=== PATIENT | male | born 1965 | race Caucasian/White ===

== ENCOUNTER → 2017-04-23 | Outpatient (CLI) | payer BC ==
[~2017-04-23] MED LIST: ASCO500T20 PO; CEFE2FRO IV; CIPR500T4 PO; CIPR500T78 PO; GENT100P4 IV; GENTAMICIN IV; IBUP200C PO; METF500T4 PO; MTF500T PO; MULT-1018 PO; MULT-159 PO; MULT-608 PO; OMEG1CAP51 PO
== END ==
LOC: WOUNDCARE 09:13
PROVIDERS: ATTEND Internal Medicine
DX: L97.512 Non-pressure chronic ulcer of other part of right foot with fat layer exposed (principal); L97.522 Non-pressure chronic ulcer of other part of left foot with fat layer exposed; E11.621 Type 2 diabetes mellitus with foot ulcer; E11.42 Type 2 diabetes mellitus with diabetic polyneuropathy
CPT/HCPCS: 11042; 87070; 87075; 87101; 87205

== ENCOUNTER → 2017-04-23 | Outpatient (CLI) | payer BC ==
[2017-04-23 11:35] LABS: BASOPHILS % (AUTO) 0 % (0-10); EOSINOPHILS # (AUTO) 0.4 10^3/uL (0.0-0.3); EOSINOPHILS % (AUTO) 4 % (0-10); LYMPHOCYTES # (AUTO) 2.4 X 10^3 (1.0-4.0); LYMPHOCYTES % (AUTO) 25 % (12-44); MEAN CORPUSCULAR HEMOGLOBIN 27 PG (25-34); MEAN CORPUSCULAR HGB CONC 33 G/DL (32-36); MEAN CORPUSCULAR VOLUME 84 FL (80-99); MEAN PLATELET VOLUME 9.7 FL (7.4-10.4); MONOCYTES # (AUTO) 0.8 X 10^3 (0.0-1.0); MONOCYTES % (AUTO) 8 % (0-12); NEUTROPHILS # (AUTO) 6.1 X 10^3 (1.8-7.8); NEUTROPHILS % (AUTO) 63 % (42-75); PLATELET COUNT 257 10^3/uL (130-400); RED BLOOD COUNT 5.29 10^6/uL (4.35-5.85); RED CELL DISTRIBUTION WIDTH 14.9 % (10.0-14.5); WHITE BLOOD COUNT 9.7 10^3/uL (4.3-11.0)
[2017-04-23 11:57] LABS: ALANINE AMINOTRANSFERASE 63 U/L (0-55); ALBUMIN 4.1 GM/DL (3.2-4.5); ANION GAP 7 MMOL/L (5-14); ASPARTATE AMINO TRANSFERASE 33 U/L (5-34); BILIRUBIN,TOTAL 0.5 MG/DL (0.1-1.0); BLOOD UREA NITROGEN 18 MG/DL (7-18); BUN/CREATININE RATIO 23; CALCIUM 9.2 MG/DL (8.5-10.1); CARBON DIOXIDE 26 MMOL/L (21-32); CHLORIDE 104 MMOL/L (98-107); CREATININE SERUM 0.77 MG/DL (0.60-1.30); GFR ESTIMATED > 60; GLUCOSE 95 MG/DL (70-105); POTASSIUM 4.5 MMOL/L (3.6-5.0); SODIUM 137 MMOL/L (135-145); TOTAL PROTEIN 7.7 GM/DL (6.4-8.2)
[2017-04-23 12:16] LABS: ERYTHROCYTE SEDIMENTATION RATE 9 MM/HR (0-30)
--- NOTE | 2017-04-23 21:06 | Diagnostic Imaging Report ---
INDICATION: Sore/wound on lateral side of foot for several days. Diabetic ulcer. TECHNIQUE: Three views of the left foot. CORRELATION STUDY: 01/14/2016. FINDINGS: BB marker is placed at the area of ulceration. There is an irregular appearance about the soft tissues consistent with the ulceration with small gas collection suggested. There is again noted deformity and angulation at the location of the fifth MTP joint. Erosion and destructive changes of the fifth metatarsal is generally stable. Deformity at the base of the proximal phalanx also appears unchanged. No new periosteal reaction is suggested. There is also hammertoe deformities of the fourth and to a lesser degree third and second digits, appearing unchanged. Large calcaneal spur is noted. IMPRESSION: Destructive changes and abnormal alignment at the fifth toe overall appears to be generally stable. Definitive aggressive periosteal type reaction or nicol erosive change does not appear to have taken place since prior imaging. Soft tissue edema and small gas collection are suggested, compatible with ulceration. Dictated by: Dictated on workstation # [id number]
== END ==
LOC: LAB 11:19
PROVIDERS: ATTEND Internal Medicine
DX: L97.512 Non-pressure chronic ulcer of other part of right foot with fat layer exposed (principal); L97.522 Non-pressure chronic ulcer of other part of left foot with fat layer exposed; E11.621 Type 2 diabetes mellitus with foot ulcer; E11.42 Type 2 diabetes mellitus with diabetic polyneuropathy
CPT/HCPCS: 36415; 73630; 80053; 83036; 85025; 85652

== ENCOUNTER → 2017-04-30 | Outpatient (CLI) | payer BC | LOC: WOUNDCARE 08:27 | PROVIDERS: ATTEND Internal Medicine | DX: E11.621 Type 2 diabetes mellitus with foot ulcer (principal); L97.512 Non-pressure chronic ulcer of other part of right foot with fat layer exposed; L97.522 Non-pressure chronic ulcer of other part of left foot with fat layer exposed; E11.42 Type 2 diabetes mellitus with diabetic polyneuropathy | CPT/HCPCS: 11042 ==

== ENCOUNTER → 2017-05-07 | Outpatient (CLI) | payer BC | LOC: WOUNDCARE 09:00 | PROVIDERS: ATTEND Nurse Practitioner | DX: E11.621 Type 2 diabetes mellitus with foot ulcer (principal); L97.522 Non-pressure chronic ulcer of other part of left foot with fat layer exposed; L97.511 Non-pressure chronic ulcer of other part of right foot limited to breakdown of skin; E11.42 Type 2 diabetes mellitus with diabetic polyneuropathy | CPT/HCPCS: 11042; 97597 ==

== ENCOUNTER → 2017-05-14 | Outpatient (CLI) | payer BC | LOC: WOUNDCARE 09:00 | PROVIDERS: ATTEND Internal Medicine | DX: L97.522 Non-pressure chronic ulcer of other part of left foot with fat layer exposed (principal); L97.511 Non-pressure chronic ulcer of other part of right foot limited to breakdown of skin; E11.621 Type 2 diabetes mellitus with foot ulcer; E11.42 Type 2 diabetes mellitus with diabetic polyneuropathy | CPT/HCPCS: 11042; 97597 ==

== ENCOUNTER → 2017-05-21 | Outpatient (CLI) | payer BC | LOC: WOUNDCARE 08:57 | PROVIDERS: ATTEND Internal Medicine | DX: E11.621 Type 2 diabetes mellitus with foot ulcer (principal); E11.42 Type 2 diabetes mellitus with diabetic polyneuropathy; L97.522 Non-pressure chronic ulcer of other part of left foot with fat layer exposed; L97.511 Non-pressure chronic ulcer of other part of right foot limited to breakdown of skin | CPT/HCPCS: 11042 ==

== ENCOUNTER → 2017-06-04 | Outpatient (CLI) | payer BC | LOC: WOUNDCARE 08:27 | PROVIDERS: ATTEND Internal Medicine | DX: E11.621 Type 2 diabetes mellitus with foot ulcer (principal); L97.511 Non-pressure chronic ulcer of other part of right foot limited to breakdown of skin; L97.522 Non-pressure chronic ulcer of other part of left foot with fat layer exposed; E11.42 Type 2 diabetes mellitus with diabetic polyneuropathy | CPT/HCPCS: 11042 ==

== ENCOUNTER → 2017-06-11 | Outpatient (CLI) | payer BC | LOC: WOUNDCARE 08:31 | PROVIDERS: ATTEND Surgery | DX: E11.621 Type 2 diabetes mellitus with foot ulcer (principal); E11.42 Type 2 diabetes mellitus with diabetic polyneuropathy; L97.522 Non-pressure chronic ulcer of other part of left foot with fat layer exposed; L97.511 Non-pressure chronic ulcer of other part of right foot limited to breakdown of skin | CPT/HCPCS: 11042 ==

== ENCOUNTER → 2017-06-18 | Outpatient (CLI) | payer BC | LOC: WOUNDCARE 08:16 | PROVIDERS: ATTEND Internal Medicine | DX: E11.621 Type 2 diabetes mellitus with foot ulcer (principal); E11.42 Type 2 diabetes mellitus with diabetic polyneuropathy; L97.522 Non-pressure chronic ulcer of other part of left foot with fat layer exposed; L97.511 Non-pressure chronic ulcer of other part of right foot limited to breakdown of skin | CPT/HCPCS: 11042 ==

== ENCOUNTER → 2017-06-25 | Outpatient (CLI) | payer BC | LOC: WOUNDCARE 08:15 | PROVIDERS: ATTEND Internal Medicine | DX: E11.621 Type 2 diabetes mellitus with foot ulcer (principal); L97.522 Non-pressure chronic ulcer of other part of left foot with fat layer exposed; L97.511 Non-pressure chronic ulcer of other part of right foot limited to breakdown of skin; E11.42 Type 2 diabetes mellitus with diabetic polyneuropathy | CPT/HCPCS: 11042 ==

== ENCOUNTER → 2017-07-02 | Outpatient (CLI) | payer BC | LOC: WOUNDCARE 08:17 | PROVIDERS: ATTEND Internal Medicine | DX: L97.522 Non-pressure chronic ulcer of other part of left foot with fat layer exposed (principal); L97.511 Non-pressure chronic ulcer of other part of right foot limited to breakdown of skin; E11.621 Type 2 diabetes mellitus with foot ulcer; E11.42 Type 2 diabetes mellitus with diabetic polyneuropathy | CPT/HCPCS: 11042 ==

== ENCOUNTER → 2017-07-09 | Outpatient (CLI) | payer BC | LOC: WOUNDCARE 08:15 | PROVIDERS: ATTEND Internal Medicine | DX: E11.621 Type 2 diabetes mellitus with foot ulcer (principal); E11.42 Type 2 diabetes mellitus with diabetic polyneuropathy; L97.522 Non-pressure chronic ulcer of other part of left foot with fat layer exposed; L97.511 Non-pressure chronic ulcer of other part of right foot limited to breakdown of skin | CPT/HCPCS: 11042; 87070; 87075; 87101; 87205 ==

== ENCOUNTER → 2017-07-16 | Outpatient (CLI) | payer BC | LOC: WOUNDCARE 08:15 | PROVIDERS: ATTEND Internal Medicine | DX: E11.621 Type 2 diabetes mellitus with foot ulcer (principal); E11.42 Type 2 diabetes mellitus with diabetic polyneuropathy; L97.522 Non-pressure chronic ulcer of other part of left foot with fat layer exposed; L97.511 Non-pressure chronic ulcer of other part of right foot limited to breakdown of skin | CPT/HCPCS: 11042 ==

== ENCOUNTER → 2017-07-23 | Outpatient (CLI) | payer BC | LOC: WOUNDCARE 08:32 | PROVIDERS: ATTEND Internal Medicine | DX: E11.621 Type 2 diabetes mellitus with foot ulcer (principal); E11.42 Type 2 diabetes mellitus with diabetic polyneuropathy; L97.511 Non-pressure chronic ulcer of other part of right foot limited to breakdown of skin; L97.522 Non-pressure chronic ulcer of other part of left foot with fat layer exposed | CPT/HCPCS: 11042 ==

== ENCOUNTER → 2017-07-30 | Outpatient (CLI) | payer BC | LOC: WOUNDCARE 08:35 | PROVIDERS: ATTEND Internal Medicine | DX: E11.621 Type 2 diabetes mellitus with foot ulcer (principal); E11.42 Type 2 diabetes mellitus with diabetic polyneuropathy; L97.522 Non-pressure chronic ulcer of other part of left foot with fat layer exposed; L97.511 Non-pressure chronic ulcer of other part of right foot limited to breakdown of skin | CPT/HCPCS: 11042 ==

== ENCOUNTER → 2017-08-06 | Outpatient (CLI) | payer BC | LOC: WOUNDCARE 08:11 | PROVIDERS: ATTEND Internal Medicine | DX: E11.621 Type 2 diabetes mellitus with foot ulcer (principal); L97.522 Non-pressure chronic ulcer of other part of left foot with fat layer exposed; L97.511 Non-pressure chronic ulcer of other part of right foot limited to breakdown of skin; E11.42 Type 2 diabetes mellitus with diabetic polyneuropathy | CPT/HCPCS: 11042 ==

== ENCOUNTER → 2017-08-13 | Outpatient (CLI) | payer BC | LOC: WOUNDCARE 08:10 | PROVIDERS: ATTEND Nurse Practitioner | DX: E11.621 Type 2 diabetes mellitus with foot ulcer (principal); E11.42 Type 2 diabetes mellitus with diabetic polyneuropathy; L97.522 Non-pressure chronic ulcer of other part of left foot with fat layer exposed; L97.511 Non-pressure chronic ulcer of other part of right foot limited to breakdown of skin | CPT/HCPCS: 15275; 87070; 87075; 87077; 87101; 87205 ==

== ENCOUNTER → 2017-08-20 | Outpatient (CLI) | payer BC | LOC: WOUNDCARE 08:14 | PROVIDERS: ATTEND Internal Medicine | DX: E11.621 Type 2 diabetes mellitus with foot ulcer (principal); L97.522 Non-pressure chronic ulcer of other part of left foot with fat layer exposed; E11.42 Type 2 diabetes mellitus with diabetic polyneuropathy | CPT/HCPCS: 11042; 82962 ==

== ENCOUNTER → 2017-08-27 | Outpatient (CLI) | payer BC ==
--- NOTE | 2017-08-27 10:55 | Diagnostic Imaging Report ---
INDICATION: Nonhealing pressure ulcer of the fifth toe. FINDINGS: Note is again made of post traumatic changes involving the distal fifth metatarsal and fifth toe. There is slightly more lytic change in the distal fifth metatarsal on today's examination. Underlying osteomyelitis cannot be excluded. There is no other fracture or dislocation. There is a large degenerative spur on the inferior calcaneus. IMPRESSION: Post traumatic and destructive changes involving the fifth metatarsal and fifth toe as described. Again, underlying osteomyelitis cannot be excluded. If there is high clinical concern for osteomyelitis, further evaluation with an MRI may be helpful. Dictated by: Dictated on workstation # [id number]
== END ==
LOC: WOUNDCARE 08:16
PROVIDERS: ATTEND Internal Medicine
DX: E11.621 Type 2 diabetes mellitus with foot ulcer (principal); E11.42 Type 2 diabetes mellitus with diabetic polyneuropathy; L97.523 Non-pressure chronic ulcer of other part of left foot with necrosis of muscle
CPT/HCPCS: 11042; 73630

== ENCOUNTER → 2017-08-27 | Outpatient (CLI) | payer BC ==
[2017-08-27 09:43] LABS: BASOPHILS % (AUTO) 0 % (0-10); EOSINOPHILS # (AUTO) 0.3 10^3/uL (0.0-0.3); EOSINOPHILS % (AUTO) 3 % (0-10); HEMATOCRIT 42 % (40-54); HEMOGLOBIN 14.1 G/DL (13.3-17.7); LYMPHOCYTES # (AUTO) 2.1 X 10^3 (1.0-4.0); LYMPHOCYTES % (AUTO) 23 % (12-44); MEAN CORPUSCULAR HEMOGLOBIN 28 PG (25-34); MEAN CORPUSCULAR HGB CONC 34 G/DL (32-36); MEAN CORPUSCULAR VOLUME 83 FL (80-99); MEAN PLATELET VOLUME 9.6 FL (7.4-10.4); MONOCYTES # (AUTO) 1.1 X 10^3 (0.0-1.0); MONOCYTES % (AUTO) 11 % (0-12); NEUTROPHILS # (AUTO) 5.9 X 10^3 (1.8-7.8); NEUTROPHILS % (AUTO) 63 % (42-75); PLATELET COUNT 246 10^3/uL (130-400); RED CELL DISTRIBUTION WIDTH 15.9 % (10.0-14.5); WHITE BLOOD COUNT 9.4 10^3/uL (4.3-11.0)
[2017-08-27 10:12] LABS: ERYTHROCYTE SEDIMENTATION RATE 29 MM/HR (0-30)
== END ==
LOC: RAD 09:02
PROVIDERS: ATTEND Internal Medicine
DX: L97.523 Non-pressure chronic ulcer of other part of left foot with necrosis of muscle (principal); E11.621 Type 2 diabetes mellitus with foot ulcer; E11.42 Type 2 diabetes mellitus with diabetic polyneuropathy
CPT/HCPCS: 36415; 85025; 85652

== ENCOUNTER → 2017-08-29 | Outpatient (CLI) | payer BC ==
--- NOTE | 2017-08-29 14:48 | Diagnostic Imaging Report ---
PROCEDURE: MR imaging left lower extremity without contrast. TECHNIQUE: Multiplanar, multisequence non contrast enhanced MR imaging of the left lower extremity was accomplished. INDICATION: Foot ulcer near the fifth metatarsophalangeal joint. Comparison is made with radiographs from 08/29/2017 and to prior MRI from 11/23/2014. FINDINGS: There is extensive abnormal soft tissue signal intensity demonstrated centered about the patient's distal fifth metatarsal. There may been prior partial surgical resection of the distal tip of the fifth metatarsal. The phalanges of the fifth toe are medially positioned relative to the metatarsal. There is marked abnormal low signal intensity demonstrated within the entirety of the fifth metatarsal and also involving the fourth metatarsal. There is associated cortical thickening. Ongoing osteomyelitis is suspected though there is at least a degree of chronicity given the degree of cortical thickening present. Additionally, there is some abnormal low T1 signal intensity with high T2 signal intensity demonstrated within the plantar aspect of the head of the second metatarsal. There is no definable abscess. There is extensive soft tissue edema throughout the foot including throughout the subcutaneous fat and also involving the intrinsic musculature of the foot which also demonstrates severe fatty atrophy. IMPRESSION: 1. Large degree of soft tissue inflammation demonstrated centered at the level of the fifth metatarsal head with possible prior surgical changes of the fifth metatarsal. The phalanges of the fifth toe are displaced relative to the metatarsal head. There is an ulcer demonstrated along the plantar aspect of the foot at this location. There is no evidence of a focal abscess. 2. Abnormal low T1 signal intensity and cortical thickening is demonstrated within the fourth and fifth metatarsals. There is marked cortical thickening. This may be reflective of at least a component of chronic osteomyelitis but ongoing osteomyelitis given the marrow signal changes cannot be excluded. 3. There are, however, findings concerning for more acute osteomyelitis involving the plantar aspect of the head of the second metatarsal. 3. Extensive subcutaneous edema and myositis with marked intrinsic musculature fatty atrophy. Dictated by: Dictated on workstation # [id number]
== END ==
LOC: RAD 13:19
PROVIDERS: ATTEND Internal Medicine
DX: L97.523 Non-pressure chronic ulcer of other part of left foot with necrosis of muscle (principal); M89.8X8 Other specified disorders of bone, other site; M60.9 Myositis, unspecified; M62.562 Muscle wasting and atrophy, not elsewhere classified, left lower leg; E11.621 Type 2 diabetes mellitus with foot ulcer; E11.42 Type 2 diabetes mellitus with diabetic polyneuropathy

== ENCOUNTER → 2017-09-03 | Outpatient (CLI) | payer BC | LOC: WOUNDCARE 08:01 | PROVIDERS: ATTEND Internal Medicine | DX: M86.18 Other acute osteomyelitis, other site (principal); L97.523 Non-pressure chronic ulcer of other part of left foot with necrosis of muscle; E11.621 Type 2 diabetes mellitus with foot ulcer; E11.42 Type 2 diabetes mellitus with diabetic polyneuropathy; Z72.0 Tobacco use | CPT/HCPCS: 11042; 87070; 87075; 87077; 87101; 87205 ==

== ENCOUNTER → 2017-09-06 | Outpatient (CLI) | payer BC, OTHER ==
[~2017-09-06] MED LIST changes: +AMOX1TAB12 PO; +ASCO500T6 PO; +ASPI325T32 PO; +ATOR40TA70 PO; +CALC-654 PO; +DOXY100C42 PO; +FLUC200T5 PO; +GABA-488 PO; +HYDR-3820 PO; +MAGN400T39 PO; +METF500T5 PO; +MULT-985 PO; +MULT1TAB69 PO; +POTA99TA21 PO; +SENN-20 PO
--- NOTE | 2017-09-06 12:50 | Diagnostic Imaging Report ---
EXAMINATION: CHEST (PA AND LATERAL) CLINICAL INDICATION: 52-year-old male, tobacco use. COMPARISON: 03/08/2015. FINDINGS: There is a nodule overlying the left mid lung measuring 6 mm in size which is unchanged since comparison exam. This appears high in attenuation and most likely relates to calcified granuloma. Heart size and mediastinal contours are unremarkable. There is no identified pneumothorax. There is no pleural effusion. There is no identified focal airspace consolidation. IMPRESSION: 1. No identified acute cardiopulmonary abnormality. 2. Stable high attenuation 6 mm nodule projecting over the left mid lung compatible with benign calcified granuloma. Dictated by: Dictated on workstation # [id number]
== END ==
LOC: RAD 12:17
PROVIDERS: ATTEND Internal Medicine
DX: R91.1 Solitary pulmonary nodule (principal); M86.18 Other acute osteomyelitis, other site; L97.523 Non-pressure chronic ulcer of other part of left foot with necrosis of muscle; E11.621 Type 2 diabetes mellitus with foot ulcer; E11.42 Type 2 diabetes mellitus with diabetic polyneuropathy; Z72.0 Tobacco use
CPT/HCPCS: 71046

== ENCOUNTER → 2017-09-08 | Outpatient (CLI) | payer BC, OTHER | LOC: WOUNDCARE 10:36 | PROVIDERS: ATTEND Nurse Practitioner | DX: E11.621 Type 2 diabetes mellitus with foot ulcer (principal); E11.42 Type 2 diabetes mellitus with diabetic polyneuropathy; M86.18 Other acute osteomyelitis, other site; L97.523 Non-pressure chronic ulcer of other part of left foot with necrosis of muscle | CPT/HCPCS: 11042 ==

== ENCOUNTER 2017-09-15 08:00 | Outpatient (RCR) | payer BC, OTHER ==
[~2017-09-15 08:00] MED LIST changes: -AMOX1TAB12 PO; -ASCO500T6 PO; -ASPI325T32 PO; -ATOR40TA70 PO; -CALC-654 PO; -DOXY100C42 PO; -FLUC200T5 PO; -GABA-488 PO; -HYDR-3820 PO; -MAGN400T39 PO; -METF500T5 PO; -MULT-985 PO; -MULT1TAB69 PO; -POTA99TA21 PO; -SENN-20 PO
== END 2017-09-15 12:00 | disposition home or self-care (01) ==
LOC: WOUNDCARE 08:00
PROVIDERS: ATTEND Nurse Practitioner
DX: E11.621 Type 2 diabetes mellitus with foot ulcer (principal); L97.524 Non-pressure chronic ulcer of other part of left foot with necrosis of bone
CPT/HCPCS: 11042; 99183

== ENCOUNTER → 2017-09-17 | Outpatient (CLI) | payer BC, OTHER ==
[~2017-09-17] MED LIST changes: +ASCO500T6 PO; +CALC-654 PO; +DOXY100C42 PO; +FLUC200T5 PO; +MAGN400T39 PO; +METF500T5 PO; +MULT-985 PO; +MULT1TAB69 PO; +POTA99TA21 PO
== END ==
LOC: WOUNDCARE 10:35
PROVIDERS: ATTEND Internal Medicine
DX: E11.621 Type 2 diabetes mellitus with foot ulcer (principal); E11.42 Type 2 diabetes mellitus with diabetic polyneuropathy; L97.523 Non-pressure chronic ulcer of other part of left foot with necrosis of muscle; M86.172 Other acute osteomyelitis, left ankle and foot; M14.671 Charcot's joint, right ankle and foot
CPT/HCPCS: 99212

== ENCOUNTER → 2017-09-24 | Outpatient (CLI) | payer BC, OTHER ==
[~2017-09-24] MED LIST changes: +AMOX1TAB12 PO; +ASPI325T32 PO; +ATOR40TA70 PO; +GABA-488 PO; +HYDR-3820 PO; +SENN-20 PO
== END ==
LOC: WOUNDCARE 07:59
PROVIDERS: ATTEND Internal Medicine
DX: E11.621 Type 2 diabetes mellitus with foot ulcer (principal); E11.42 Type 2 diabetes mellitus with diabetic polyneuropathy; L97.523 Non-pressure chronic ulcer of other part of left foot with necrosis of muscle
CPT/HCPCS: 11042

== ENCOUNTER → 2017-10-01 | Outpatient (CLI) | payer BC, OTHER | LOC: WOUNDCARE 08:04 | PROVIDERS: ATTEND Internal Medicine | DX: E11.621 Type 2 diabetes mellitus with foot ulcer (principal); E11.42 Type 2 diabetes mellitus with diabetic polyneuropathy; L97.526 Non-pressure chronic ulcer of other part of left foot with bone involvement without evidence of necrosis; M86.172 Other acute osteomyelitis, left ankle and foot; M14.671 Charcot's joint, right ankle and foot | CPT/HCPCS: 11042 ==

== ENCOUNTER → 2017-10-15 | Outpatient (CLI) | payer BC, OTHER | LOC: WOUNDCARE 08:12 | PROVIDERS: ATTEND Internal Medicine | DX: E11.621 Type 2 diabetes mellitus with foot ulcer (principal); E11.42 Type 2 diabetes mellitus with diabetic polyneuropathy; L97.522 Non-pressure chronic ulcer of other part of left foot with fat layer exposed; M86.272 Subacute osteomyelitis, left ankle and foot; M14.671 Charcot's joint, right ankle and foot | CPT/HCPCS: 87070; 87075; 87101; 87186; 87205 ==

== ENCOUNTER → 2017-10-20 | Outpatient (CLI) | payer BC, OTHER ==
[2017-10-20 09:28] LABS: BASOPHILS % (AUTO) 0 % (0-10); EOSINOPHILS # (AUTO) 0.2 10^3/uL (0.0-0.3); EOSINOPHILS % (AUTO) 2 % (0-10); HEMATOCRIT 40 % (40-54); HEMOGLOBIN 13.1 G/DL (13.3-17.7); LYMPHOCYTES # (AUTO) 1.6 X 10^3 (1.0-4.0); LYMPHOCYTES % (AUTO) 18 % (12-44); MEAN CORPUSCULAR HEMOGLOBIN 28 PG (25-34); MEAN CORPUSCULAR HGB CONC 33 G/DL (32-36); MEAN CORPUSCULAR VOLUME 84 FL (80-99); MEAN PLATELET VOLUME 9.3 FL (7.4-10.4); MONOCYTES # (AUTO) 0.6 X 10^3 (0.0-1.0); MONOCYTES % (AUTO) 7 % (0-12); NEUTROPHILS # (AUTO) 6.4 X 10^3 (1.8-7.8); NEUTROPHILS % (AUTO) 72 % (42-75); PLATELET COUNT 268 10^3/uL (130-400); RED BLOOD COUNT 4.69 10^6/uL (4.35-5.85); RED CELL DISTRIBUTION WIDTH 17.6 % (10.0-14.5); WHITE BLOOD COUNT 8.9 10^3/uL (4.3-11.0)
[2017-10-20 10:21] LABS: ERYTHROCYTE SEDIMENTATION RATE 38 MM/HR (0-30)
--- NOTE | 2017-10-20 15:30 | Diagnostic Imaging Report ---
PATIENT HISTORY: Fifth metatarsal head osteomyelitis, skin ulceration. TECHNIQUE: Three views of the left foot. COMPARISON: 08/27/2017 FINDINGS: There is displacement of the left fifth metatarsal head and fifth toe phalanges from the fifth metatarsal shaft. Marked periosteal reaction is seen, with erosive changes. There is soft tissue edema and a prominent plantar skin ulceration. No deep soft tissue gas is seen. No radiopaque foreign bodies are identified. There is a claw toe deformity of the fourth and fifth toes. No additional fractures are seen. There is a large plantar calcaneal enthesophyte and a moderate-sized Achilles tendon enthesophyte. IMPRESSION: 1. Periosteal reaction and erosion of the left fifth metatarsal and proximal phalanx. In the absence of interval surgical changes, this is consistent with osteomyelitis. Dictated by: Dictated on workstation # [id number]
== END ==
LOC: LAB 09:13
PROVIDERS: ATTEND Nurse Practitioner
DX: E11.621 Type 2 diabetes mellitus with foot ulcer (principal); E11.42 Type 2 diabetes mellitus with diabetic polyneuropathy; L97.522 Non-pressure chronic ulcer of other part of left foot with fat layer exposed; M86.272 Subacute osteomyelitis, left ankle and foot; M14.671 Charcot's joint, right ankle and foot
CPT/HCPCS: 36415; 73630; 85025; 85652

== ENCOUNTER 2017-10-21 08:22 | Outpatient (RCR) | payer BC, OTHER ==
[~2017-10-21 08:22] MED LIST changes: -AMOX1TAB12 PO; -ASCO500T6 PO; -ASPI325T32 PO; -ATOR40TA70 PO; -CALC-654 PO; -DOXY100C42 PO; -FLUC200T5 PO; -GABA-488 PO; -HYDR-3820 PO; -MAGN400T39 PO; -METF500T5 PO; -MULT-985 PO; -MULT1TAB69 PO; -POTA99TA21 PO; -SENN-20 PO
== END 2017-10-21 12:00 | disposition home or self-care (01) ==
LOC: WOUNDCARE 08:22
PROVIDERS: ATTEND Internal Medicine
DX: E11.621 Type 2 diabetes mellitus with foot ulcer (principal); E11.42 Type 2 diabetes mellitus with diabetic polyneuropathy; M86.18 Other acute osteomyelitis, other site; L97.523 Non-pressure chronic ulcer of other part of left foot with necrosis of muscle
CPT/HCPCS: 82962; 99183; 99212

== ENCOUNTER → 2017-10-22 | Outpatient (CLI) | payer BC, OTHER ==
[~2017-10-22] MED LIST changes: +AMOX1TAB12 PO; +ASCO500T6 PO; +ASPI325T32 PO; +ATOR40TA70 PO; +CALC-654 PO; +DOXY100C42 PO; +FLUC200T5 PO; +GABA-488 PO; +HYDR-3820 PO; +MAGN400T39 PO; +METF500T5 PO; +MULT-985 PO; +MULT1TAB69 PO; +POTA99TA21 PO; +SENN-20 PO
== END ==
LOC: WOUNDCARE 08:04
PROVIDERS: ATTEND Internal Medicine
DX: E11.621 Type 2 diabetes mellitus with foot ulcer (principal); E11.42 Type 2 diabetes mellitus with diabetic polyneuropathy; L97.522 Non-pressure chronic ulcer of other part of left foot with fat layer exposed; M86.272 Subacute osteomyelitis, left ankle and foot; M14.671 Charcot's joint, right ankle and foot
CPT/HCPCS: 11042; 99183

== ENCOUNTER → 2017-10-24 | Outpatient (CLI) | payer BC, OTHER ==
--- NOTE | 2017-10-24 09:00 | Diagnostic Imaging Report ---
PROCEDURE: MR imaging left lower extremity without contrast. TECHNIQUE: Multiplanar, multisequence non contrast enhanced MR imaging of the left lower extremity was accomplished. INDICATION: Diabetic ulcerations most notably at the level of the distal fifth metatarsal region. Exam compared with study 08/29/2017. Redemonstration of marked cortical thickening of the fifth metatarsal with T1 hypo and T2 hyperintensity redemonstrated compatible with osteomyelitis. There is extensive regional cellulitis and myositis without a discrete drainable fluid collection evident. Abnormal mass signal intensity involving the postoperative phalanges of the fifth toe is suspect for osteomyelitis at those levels as well. Plantar and lateral laceration at the base of the level of the distal head of the fifth metatarsal is a redemonstrated finding. More diffuse cellulitis and subcutaneous edema tracks along the dorsum of the midfoot, this is progressed. Plantar marrow edema at the head of the second metatarsal is less conspicuous than on prior and reflects an improvement. No other change. IMPRESSION: Progressive soft tissue inflammation, myositis and cellulitis of progressive marrow edema and irregularities along the fifth metatarsal and its postsurgical phalanges. However improvements in a marrow edema to the plantar second metatarsal head. No discrete drainable fluid collection is found. However there is a joint effusion at the first and third MTPs dorsally. Dictated by: Dictated on workstation # [id number]
== END ==
LOC: RAD 07:09
PROVIDERS: ATTEND Internal Medicine
DX: E11.621 Type 2 diabetes mellitus with foot ulcer (principal); E11.42 Type 2 diabetes mellitus with diabetic polyneuropathy; L97.522 Non-pressure chronic ulcer of other part of left foot with fat layer exposed; M86.272 Subacute osteomyelitis, left ankle and foot; M14.671 Charcot's joint, right ankle and foot; L03.116 Cellulitis of left lower limb; M60.872 Other myositis, left ankle and foot

== ENCOUNTER → 2017-10-24 | Outpatient (CLI) | payer BC, OTHER ==
--- NOTE | 2017-10-24 09:48 | Diagnostic Imaging Report ---
PROCEDURE: MRI right lower extremity without contrast. TECHNIQUE: Multiplanar, multisequence non contrast-enhanced MRI of the right lower extremity was accomplished. INDICATION: Pain, blistering Study is correlated with most recent plain films performed 01/09/2015. The previous plain film is unremarkable. We note flatfoot deformity with a tarsal disorganization with marrow edema involving the colon medial malleolus, flattened talar dome posteriorly, the talar neck, the mid to anterior calcaneus, the cuboid, the cuneiforms and the navicular as well as involving second third and fourth metatarsals with likely erosive changes or resection to the distal fifth metatarsal is a new finding. There is extensive circumferential subcutaneous edema about the ankle, hind, mid and forefoot with features of myositis and inflammation of the muscle groups diffusely. At this nonenhanced exam a discrete drainable fluid collection is not found. Subcutaneous distortion is likely accompanied by a plantar ulceration at the level of the calcaneocuboid joint. The findings are suspect for extensive osteomyelitis, cellulitis and myositis. A discrete fluid collection is not found. Given the otherwise unremarkable radiographic appearance of the foot. Neuropathic changes would be less likely although warrant clinical correlation. IMPRESSION: Findings of marked marrow edema involving the hind, mid and forefoot with flattening of the plantar arch, cortical thickening and marrow edema and features of osteomyelitis. Neuropathic foot superimposed in the appropriate scenario could not be excluded features of cellulitis, myositis and plantar ulceration without a discrete drainable fluid collection revealed at this noncontrast enhanced exam. There are erosions or postsurgical resections of portions the base of the fifth metatarsal having occurred in the interim from prior plain film. Dictated by: Dictated on workstation # [id number]
== END ==
LOC: RAD 07:12
PROVIDERS: ATTEND Podiatrist
DX: M21.41 Flat foot [pes planus] (acquired), right foot (principal); M14.671 Charcot's joint, right ankle and foot; M86.8X7 Other osteomyelitis, ankle and foot

== ENCOUNTER → 2017-10-29 | Outpatient (CLI) | payer BC, OTHER | LOC: WOUNDCARE 08:01 | PROVIDERS: ATTEND Nurse Practitioner | DX: E11.621 Type 2 diabetes mellitus with foot ulcer (principal); E11.42 Type 2 diabetes mellitus with diabetic polyneuropathy; L97.522 Non-pressure chronic ulcer of other part of left foot with fat layer exposed; M86.272 Subacute osteomyelitis, left ankle and foot; M14.671 Charcot's joint, right ankle and foot | CPT/HCPCS: 11042 ==

== ENCOUNTER 2017-11-05 13:25 | Inpatient (IN) | payer BC, OTHER ==
[~2017-11-05] VITALS: Ht 200.7 cm; Wt 125.3 kg
[~2017-11-05 13:25] MED LIST changes: -AMOX1TAB12 PO; -ASCO500T6 PO; -ASPI325T32 PO; -ATOR40TA70 PO; -CALC-654 PO; -DOXY100C42 PO; -FLUC200T5 PO; -GABA-488 PO; -HYDR-3820 PO; -MAGN400T39 PO; -METF500T5 PO; -MULT-985 PO; -MULT1TAB69 PO; -POTA99TA21 PO; -SENN-20 PO
--- OUTSIDE RECORDS SUMMARY | 2017-11-05 13:30 | XMS REPORT ---
Author Author SASHA GEORGES [facility] Address [address] [address] Phone Unavailable Care Team Providers Care Family Advocate Name Role Phone SASHA GEORGES Unavailable Unavailable PROBLEMS Type Condition ICD9-CM Code [id number] Code Onset Dates Condition Status SNOMED Code Problem Diabetes E11.9 Active 223980252 Problem DTAP TEST V06.1 Active ALLERGIES Substance Reaction Event Type Date Status N.K.D.A. Unknown Non Drug Allergy Apr, Unknown SOCIAL HISTORY No smoking Hx information available PLAN OF CARE Activity Details Follow Up 6 Months Reason:recall VITAL SIGNS Blood pressure systolic 127 mmHg 2016-05-19 Blood pressure diastolic 86 mmHg 2016-05-19 MEDICATIONS Medication Instructions Dosage Frequency Start Date End Date Duration Status Diabetic Shoes as directed Apr, Active Metformin HCl 500 MG Orally Twice a day 1 tablet with meals 12h Apr, 30 day(s) Active RESULTS No Results PROCEDURES Procedure Date Ordered Related Diagnosis Body Site PROPHYLAXIS - ADULT May 19, 2016 TOPICAL FLUORIDE VARNISH May 19, 2016 IMMUNIZATIONS No Known Immunizations
--- OUTSIDE RECORDS SUMMARY | 2017-11-05 13:30 | XMS REPORT ---
Author Author JOSE ROBINS Organization [facility] Address [address] [place] [address] Care Team Providers Care System Developer Associate Manager Name Role Phone JOSE ROBINS Unavailable PROBLEMS Type Condition ICD9-CM Code [id number] Code Onset Dates Condition Status SNOMED Code Problem Diabetes E11.9 Active 318893806 Problem Prediabetes R73.03 Active 491549230 Problem DTAP TEST V06.1 Active ALLERGIES No Information SOCIAL HISTORY Never Assessed PLAN OF CARE VITAL SIGNS MEDICATIONS Unknown Medications RESULTS Name Result Date Reference Range CBC 2016-10-08 WBC 6.4 3.4-10.8 RBC 4.98 4.14-5.80 Hemoglobin 13.7 12.6-17.7 Hematocrit 41.8 37.5-51.0 MCV 84 79-97 MCH 27.5 26.6-33.0 MCHC 32.8 31.5-35.7 RDW 15.1 12.3-15.4 Platelets 225 150-379 Neutrophils 47 Lymphs 39 Monocytes 9 Eos 4 Basos 1 Neutrophils (Absolute) 3.0 1.4-7.0 Lymphs (Absolute) 2.5 0.7-3.1 Monocytes(Absolute) 0.6 0.1-0.9 Eos (Absolute) 0.2 0.0-0.4 Baso (Absolute) 0.0 0.0-0.2 Immature Granulocytes 0 Immature Grans (Abs) 0.0 0.0-0.1 LIPID PANEL 2016-10-08 Cholesterol, Total 151 100-199 Triglycerides 87 0-149 HDL Cholesterol 34 >39 VLDL Cholesterol Yonathan 17 5-40 LDL Cholesterol Calc 100 0-99 Comment: CMP 2016-10-08 Glucose, Serum 110 65-99 BUN 19 6-24 Creatinine, Serum 0.98 0.76-1.27 eGFR If NonAfricn Am 90 >59 eGFR If Africn Am 104 >59 BUN/Creatinine Ratio 19 9-20 Sodium, Serum 140 134-144 Potassium, Serum 4.5 3.5-5.2 Chloride, Serum 103 96-106 Carbon Dioxide, Total 22 18-29 Calcium, Serum 8.9 8.7-10.2 Protein, Total, Serum 7.0 6.0-8.5 Albumin, Serum 4.4 3.5-5.5 Globulin, Total 2.6 1.5-4.5 A/G Ratio 1.7 1.2-2.2 Bilirubin, Total 0.5 0.0-1.2 Alkaline Phosphatase, S 84 39-117 AST (SGOT) 29 0-40 ALT (SGPT) 44 0-44 PROCEDURES Procedure Date Ordered Result Body Site COMPLETE CBC W/AUTO DIFF WBC October 08, 2016 LIPID PANEL October 08, 2016 VENIPUNCT, ROUTINE* October 08, 2016 COMPREHEN METABOLIC PANEL October 08, 2016 IMMUNIZATIONS No Known Immunizations MEDICAL (GENERAL) HISTORY Type Description Date Medical History diabetes Type II Surgical History right pinky finger Surgical History right ankle repair Surgical History Left arm Surgical History left wrist Surgical History nasal repair surgery Surgical History tonsiillectomy Hospitalization History surgeries
--- OUTSIDE RECORDS SUMMARY | 2017-11-05 13:30 | XMS REPORT ---
Author Author JOSE ROBINS Organization [employer] Address Unknown Phone Unavailable Care Team Providers Care Specification Writer Name Role Phone JOSE ROBINS CP Unavailable Allergies No Known Allergies Problems Problem Type Condition Code Onset Dates Condition Status Problem Acute upper respiratory infections of unspecified site 465.9 Active Problem Other malaise and fatigue 780.79 Active Problem Pain in joint, site unspecified 719.40 Active Assessment Diabetes E11.9 Active Problem Acute pharyngitis 462 Active Problem Corns and callosities 700 Active Problem Diabetes E11.9 Active Problem Nonspecific elevation of levels of transaminase or lactic acid dehydrogenase (LDH) 790.4 Active Problem Other abnormal blood chemistry 790.6 Active Problem DTAP TEST V06.1 Active Problem Other abnormal glucose 790.29 Active Medications No Known Medications Results No Known Results Summary Purpose [employer] Submission
--- OUTSIDE RECORDS SUMMARY | 2017-11-05 13:31 | XMS REPORT ---
Author Author JOSE ROBINS Organization [employer] Address Unknown Phone Unavailable Care Team Providers Care Calculus Professor Name Role Phone JOSE ROBINS CP Unavailable Allergies, Adverse Reactions, Alerts Substance Reaction Event Type N.K.D.A. Info Not Available Non Drug Allergy Problems Problem Type Condition Code Onset Dates [...] Problem Other abnormal glucose 790.29 Active Medications Medication Code System Code Instructions Start Date End Date Status Dosage Metformin HCl [facility] [place] [address]-91 500 MG Orally Twice a day May 07, 2015 1 tablet with meals Diabetic Shoes [facility] [place] 0 May 07, 2015 as directed Procedures Procedure Coding System Code Date Office Visit, New Pt., Level 4 CPT-4 90876 May 07, 2015 GLYCATED HEMOGLOBIN TEST CPT-4 81376 May 07, 2015 Vital Signs Date/Time: May 07, 2015 Temperature 98.9 F Weight 202.7 lbs Height 77 in BMI 24.03 Index Blood Pressure Diastolic 86 mmHg Blood Pressure Systolic 130 mmHg Cardiac Monitoring Heart Rate 88 bpm Results Name Result Date Reference Range Unit Abnormality Flag A1C (IN HOUSE) ----A1C IN HOUSE 5.2% 20150507 4.30 - 5.6 % ----Previous A1c 6.2% 20150507 ----Lot # [id number] ----Exp date [id number] Summary Purpose [employer] Submission
--- OUTSIDE RECORDS SUMMARY | 2017-11-05 13:31 | XMS REPORT ---
Author JOSE Rader Organization [employer] Address Unknown Phone Unavailable Care Team Providers Care Coil Winder Strap Name Role Phone JOSE ROBINS CP Unavailable Allergies, Adverse Reactions, Alerts Substance Reaction Event Type N.K.D.A. Info Not Available Non Drug Allergy Problems Problem Type Condition Code Onset Dates Condition Status Problem DTAP TEST V06.1 Active Assessment Diabetes E11.9 Active Problem Diabetes E11.9 Active Medications Medication Code System Code Instructions Start Date End Date Status Dosage Metformin HCl [facility] [address]-89 500 MG Orally Twice a day May 07, 2015 1 tablet with meals Metformin HCl [facility] 26153788668 500 Orally Twice a day 1 tablet with meals Procedures Procedure Coding System Code Date Office Visit, Est Pt., Level 4 CPT-4 86197 Jan 21, 2016 GLYCATED HEMOGLOBIN TEST CPT-4 78686 Jan 21, 2016 Vital Signs Date/Time: Jan 21, 2016 Cardiac Monitoring Heart Rate 84 bpm Weight 306.0 lbs Height 77 in BMI 36.28 Index Blood Pressure Diastolic 82 mmHg Blood Pressure Systolic 143 mmHg Results No Known Results Summary Purpose [employer] Submission
--- OUTSIDE RECORDS SUMMARY | 2017-11-05 13:32 | XMS REPORT ---
Author Author JOES ROBINS Organization [facility] Address [address] [place] [address] Care Team Providers Care Icing Coater Name Role Phone REYNA ROBINSNETTE Unavailable PROBLEMS Type Condition ICD9-CM Code [id number] Code Onset Dates Condition Status SNOMED Code Problem Diabetes E11.9 Active 551353125 Problem Prediabetes R73.03 Active 882482443 Problem DTAP TEST V06.1 Active ALLERGIES No Known Allergies SOCIAL HISTORY Never Assessed PLAN OF CARE Activity Details Follow Up 3 Months Reason:dm VITAL SIGNS Height 77 in 2016-10-06 Weight 297.6 lbs 2016-10-06 Temperature 98.4 degrees Fahrenheit 2016-10-06 Heart Rate 80 bpm 2016-10-06 Respiratory Rate 20 2016-10-06 BMI 35.29 kg/m2 2016-10-06 Blood pressure systolic 148 mmHg 2016-10-06 Blood pressure diastolic 78 mmHg 2016-10-06 MEDICATIONS Medication Instructions Dosage Frequency Start Date End Date Duration Status Blood Glucose Test 1 subcutaneously Once a day as directed 24h September, Active Diabetic Shoes as directed Apr, Active Metformin HCl 500 mg Orally Twice a day 1 tablet with meals 12h Apr, Active RESULTS Name Result Date Reference Range MICROALBUMIN, URINE (IN HOUSE) 2016-10-06 MICROALBUMIN Normal Lot # [id number] Exp date 2017-09-21 Clarity Clear Color Yellow ALB 10 CRE 200 A:C (IN HOUSE) <30 Control + Control - Lot # Exp date A1C (IN HOUSE) 2016-10-06 A1C IN HOUSE 5.9 4.3 - 5.6 % Previous A1c 6.0 Lot [id number] Exp date PROCEDURES Procedure Date Ordered Result Body Site GLYCATED HEMOGLOBIN TEST October 06, 2016 MICROALBUMIN, SEMIQUANT October 06, 2016 IMMUNIZATIONS No Known Immunizations MEDICAL (GENERAL) HISTORY Type Description Date Medical History diabetes Type II Surgical History right pinky finger Surgical History right ankle repair Surgical History Left arm Surgical History left wrist Surgical History nasal repair surgery Surgical History tonsiillectomy Hospitalization History surgeries
--- OUTSIDE RECORDS SUMMARY | 2017-11-05 13:32 | XMS REPORT ---
Author Author JOSE ROBINS Organization [employer] Address Unknown Phone Unavailable Care Team Providers Care Mail Handlers Supervisor Name Role Phone JOSE ROBINS CP Unavailable Allergies No Known Allergies Problems Problem Type Condition Code Onset Dates Condition Status Problem Acute upper respiratory infections of unspecified site 465.9 Active Problem Other malaise and fatigue 780.79 Active Problem Pain in joint, site unspecified 719.40 Active Problem Acute pharyngitis 462 Active Problem [...]
--- OUTSIDE RECORDS SUMMARY | 2017-11-05 13:32 | XMS REPORT ---
Author Author JOSE ROBINS Organization [employer] Address Unknown Phone Unavailable Care Team Providers Care Mens Locker Room Attendant Name Role Phone JOSE ROBINS CP Unavailable [...]
--- OUTSIDE RECORDS SUMMARY | 2017-11-05 13:32 | XMS REPORT ---
Author Author JOSE ROBINS [facility] [employer] Address Unknown Phone Unavailable Care Team Providers Care Gatekeeper Name Role Phone JOSE ROBINS Unavailable Allergies No Known Allergies Problems Problem Type Condition Code Onset Dates Condition Status Problem DTAP TEST V06.1 Active Assessment Diabetes E11.9 Active Problem Diabetes E11.9 Active Medications Medication Code System Code Instructions Start Date End Date Status Dosage Metformin HCl [facility] [address]-97 500 MG Orally Twice a day May 07, 2015 1 tablet with meals Results No Known Results Summary Purpose [employer] Submission
[2017-11-05] MEDS ORDERED: LACTATED RINGERS 1,000 ML IV ONE (13:58)
[2017-11-05] MEDS ORDERED: ONDANSETRON 4 MG/2 ML (SDV) Z0FRAN IVP ONE (14:00)
[2017-11-05 14:17] LABS: BASOPHILS % (AUTO) 0 % (0-10); EOSINOPHILS % (AUTO) 0 % (0-10); HEMATOCRIT 40 % (40-54); HEMOGLOBIN 13.7 G/DL (13.3-17.7); LYMPHOCYTES # (AUTO) 1.5 X 10^3 (1.0-4.0); LYMPHOCYTES % (AUTO) 10 % (12-44); MEAN CORPUSCULAR HEMOGLOBIN 28 PG (25-34); MEAN CORPUSCULAR HGB CONC 34 G/DL (32-36); MEAN CORPUSCULAR VOLUME 82 FL (80-99); MEAN PLATELET VOLUME 9.1 FL (7.4-10.4); MONOCYTES # (AUTO) 1.1 X 10^3 (0.0-1.0); MONOCYTES % (AUTO) 8 % (0-12); NEUTROPHILS # (AUTO) 11.9 X 10^3 (1.8-7.8); NEUTROPHILS % (AUTO) 82 % (42-75); PLATELET COUNT 349 10^3/uL (130-400); RED BLOOD COUNT 4.95 10^6/uL (4.35-5.85); RED CELL DISTRIBUTION WIDTH 17.1 % (10.0-14.5); WHITE BLOOD COUNT 14.6 10^3/uL (4.3-11.0)
[2017-11-05] MEDS ORDERED: IBUPROFEN 800 MG (MOTRIN) TAB PO ONE (14:30)
[2017-11-05] MEDS ORDERED: ACETAMINOPHEN 500 MG TAB (TYLENOL) PO ONE (14:30)
[2017-11-05 14:41] LABS: ANISOCYTOSIS SLIGHT; BAND NEUTROPHILS 2 %; BASOPHILS % (MANUAL) 0 %; EOSINOPHILS % (MANUAL) 0 %; LYMPHOCYTES % (MANUAL) 10 %; MONOCYTES % (MANUAL) 6 %; NEUTROPHILS % (MANUAL) 82 %
[2017-11-05 14:42] LABS: ALANINE AMINOTRANSFERASE 63 U/L (0-55); ALBUMIN 4.2 GM/DL (3.2-4.5); ALKALINE PHOSPHATASE 103 U/L (40-136); AMYLASE 45 U/L (25-125); BILIRUBIN,TOTAL 1.2 MG/DL (0.1-1.0); BUN/CREATININE RATIO 19; CALCIUM 9.4 MG/DL (8.5-10.1); CARBON DIOXIDE 21 MMOL/L (21-32); CHLORIDE 98 MMOL/L (98-107); CREATININE SERUM 0.98 MG/DL (0.60-1.30); GFR ESTIMATED > 60; GLUCOSE 148 MG/DL (70-105); LIPASE 13 U/L (8-78); POTASSIUM 4.3 MMOL/L (3.6-5.0); SODIUM 129 MMOL/L (135-145); TOTAL PROTEIN 7.9 GM/DL (6.4-8.2)
[2017-11-05] MEDS ORDERED: NS IV 1000 ML 1,000 ML IV ONE (15:28)
--- NOTE | 2017-11-05 15:39 | Diagnostic Imaging Report ---
INDICATION: Low back pain. TIME OF EXAM: 3:42 PM FINDINGS: The heart size is normal. Nodular density in the left midlung appears stable to prior chest x-ray from 09/06/17. No free air is identified. There is gas throughout nondistended small and large bowel loops. No bowel wall thickening is seen. No pneumatosis is detected. No pathologic calcifications are seen. IMPRESSION: No acute abnormality is detected. Dictated by: Dictated on workstation # [id number]
--- NOTE | 2017-11-05 15:48 | Diagnostic Imaging Report ---
PROCEDURE: CT urinary tract, rule out kidney stone. TECHNIQUE: Multiple contiguous axial images were obtained through the abdomen and pelvis without the use of intravenous contrast. DATE: November 05, 2017. COMPARISON: None. INDICATION: 52-year-old male, lower back pain. Evaluation for renal stones. FINDINGS: There are limitations for evaluation of the abdominal organs, neoplastic processes, abscess, and limited evaluation of the vasculature relating to the lack of intravenous contrast. The visualized portions of the lung bases are clear. The heart is not enlarged. There is no pericardial effusion. The liver is normal in size and contour. There is a tiny gallstone. The gallbladder is not distended. There is no pericholecystic fluid. There is no wall thickening of the gallbladder or adjacent inflammatory stranding. There is no intrahepatic or extrahepatic bile duct dilation. The main pancreatic duct is normal in caliber. Unremarkable noncontrast CT appearance of the pancreatic parenchyma. There are small splenic calcifications that likely relate to prior granulomatous disease. The spleen measures just under upper limits of normal in size at 14.4 cm in craniocaudal dimension. The adrenal glands are unremarkable. Unremarkable appearance of the renal parenchyma. The urinary collecting systems are not distended. There is no identified renal or ureteral stone. The urinary bladder is unremarkable in appearance. The intestinal tract is not distended. The appendix is well seen on axial image 110. There is no evidence of acute appendicitis. There is a small fat-containing umbilical hernia. There are atherosclerotic calcifications. There is no identified abnormally enlarged lymph node within the abdomen or pelvis which specifically meets CT size criteria for adenopathy. There is no free intraperitoneal air, drainable fluid collection, or free pelvic fluid. There is no identified acute bony abnormality. There are degenerative changes of the spine. CT is limited for assessment of disc pathology as well as nonbony causes of foraminal and spinal stenosis. Endplate degenerative changes are most notable adjacent to the L4-L5 disc space. There are also mild bilateral facet degenerative changes at this level. IMPRESSION: CT ABDOMEN AND PELVIS. 1. No renal or ureteral stone. 2. No acute abnormality within the abdomen or pelvis. 3. Disc and facet degenerative changes of the lumbar spine, most notable at L4-L5. There are limitations of CT for assessment of disc pathology and assessment of nonbony causes of foraminal and spinal stenosis. 4. Incidental findings, as above. Dictated by: Dictated on workstation # [id number]
[2017-11-05 16:00] LABS: BILIRUBIN,URINE NEGATIVE (NEGATIVE); CLARITY,URINE CLEAR; COLOR,URINE YELLOW; GLUCOSE, URINE (UA) NEGATIVE (NEGATIVE); KETONES,URINE NEGATIVE (NEGATIVE); LEUKOCYTE ESTERASE ,URINE NEGATIVE (NEGATIVE); NITRITE,URINE NEGATIVE (NEGATIVE); PH,URINE 5 (5-9); PROTEIN,URINE NEGATIVE (NEGATIVE); UROBILINOGEN,URINE NORMAL (NORMAL)
[2017-11-05 16:06] LABS: SQUAMOUS EPITHELIAL CELL,UR RARE /HPF
[2017-11-05] MEDS ORDERED: VANCOMYCIN INJECTION 1,000 MG in NS (IVPB) 250 ML IV ONE (16:15)
[2017-11-05] MEDS ORDERED: CATHETER FLUSH 10 ML SYR IV PRN (18:30)
[2017-11-05] MEDS ORDERED: VANCOMYCIN 1250 MG/NS 250 ML IVPB IV SCH ×2 (19:00)
[2017-11-05] MEDS: NS IV 1000 ML 1,000 ML IV SCH ×2 (19:11→23:40)
[2017-11-05] MEDS ORDERED: GADOBUTROL 15 MMOL/15 ML (GADAVIST) VIAL IV ONE (19:15)
[2017-11-05 20:10] VITALS: BP 109/68
--- NOTE | 2017-11-05 20:41 | Diagnostic Imaging Report ---
INDICATION: Question cellulitis EXAMINATION: Right foot 11/05/2017 FINDINGS: Two views of foot demonstrate marked deformity and destructive change at the base of the fifth metatarsal with adjacent osseous fragments noted. There is diffuse soft tissue abnormality about the entire visualized foot. Likely destructive change throughout the tarsal bones especially laterally also noted. No definite acute fractures are seen. A rocker-bottom appearance of the foot is also noted with likely neuropathic or Charcot joint. IMPRESSION: 1. Marked soft tissue abnormality which is consistent with the history of cellulitis. 2. Destructive change throughout the midfoot and the base of the fifth metatarsal and possibly portions of the fourth metatarsal not mentioned above highly suspicious for osteomyelitis as well superimposed Charcot joint. Please see the previous MRI from earlier today. Dictated by: Dictated on workstation # [id number]
[2017-11-05 21:00] VITALS: BP 108/70
[2017-11-05 22:00] VITALS: BP 116/78
[2017-11-05 23:00] VITALS: BP 105/67
[2017-11-06] VITALS (12 sets, daily range): BP systolic 98–124; BP diastolic 55–75
[2017-11-06] MEDS: NS IV 1000 ML 1,000 ML IV SCH ×5 (03:26→16:19)
[2017-11-06 05:50] LABS: BASOPHILS % (AUTO) 0 % (0-10); EOSINOPHILS # (AUTO) 0.1 10^3/uL (0.0-0.3); EOSINOPHILS % (AUTO) 2 % (0-10); HEMATOCRIT 38 % (40-54); HEMOGLOBIN 12.3 G/DL (13.3-17.7); LYMPHOCYTES # (AUTO) 1.2 X 10^3 (1.0-4.0); LYMPHOCYTES % (AUTO) 16 % (12-44); MEAN CORPUSCULAR HEMOGLOBIN 27 PG (25-34); MEAN CORPUSCULAR HGB CONC 33 G/DL (32-36); MEAN CORPUSCULAR VOLUME 83 FL (80-99); MEAN PLATELET VOLUME 9.4 FL (7.4-10.4); MONOCYTES # (AUTO) 0.8 X 10^3 (0.0-1.0); MONOCYTES % (AUTO) 10 % (0-12); NEUTROPHILS # (AUTO) 5.3 X 10^3 (1.8-7.8); NEUTROPHILS % (AUTO) 71 % (42-75); PLATELET COUNT 270 10^3/uL (130-400); RED BLOOD COUNT 4.56 10^6/uL (4.35-5.85); RED CELL DISTRIBUTION WIDTH 17.5 % (10.0-14.5); WHITE BLOOD COUNT 7.4 10^3/uL (4.3-11.0)
[2017-11-06 06:10] LABS: ALANINE AMINOTRANSFERASE 46 U/L (0-55); ALBUMIN 3.3 GM/DL (3.2-4.5); ALKALINE PHOSPHATASE 77 U/L (40-136); BILIRUBIN,TOTAL 0.6 MG/DL (0.1-1.0); BUN/CREATININE RATIO 21; CALCIUM 8.4 MG/DL (8.5-10.1); CARBON DIOXIDE 22 MMOL/L (21-32); CHLORIDE 107 MMOL/L (98-107); CREATININE SERUM 0.75 MG/DL (0.60-1.30); GFR ESTIMATED > 60; GLUCOSE 114 MG/DL (70-105); POTASSIUM 4.3 MMOL/L (3.6-5.0); SODIUM 136 MMOL/L (135-145); TOTAL PROTEIN 6.2 GM/DL (6.4-8.2)
[2017-11-06] MEDS: VANCOMYCIN 2000 MG/NS 500 ML IVPB IV SCH ×4 (06:22→18:02)
--- NOTE | 2017-11-06 07:37 | History & Physicial ([facility]) ---
HPI History of Present Illness: 52 year old male with known diabetic foot wound presents with complaint of fever , chills, abdominal pain. Foot is being treated weekly by wound care, but is swollen and red; when dressing taken down in ED pt had large amount of purulent drainage from wound that does not appear to be healing well. MRI ordered for suspected osteomyelitis, and pt admitted for further wound care, IV abx, and suspected osteomyelitis. Consult to surgery for possible surgical intervention of non-healing wound. Source: patient, RN/MD, RN notes reviewed, old records Exam Limitations: no limitations Date seen by provider: Nov 06, 2017 Time Seen by Provider: 14:37 Attending Physician Sally Cole DO [facility] Consult Wound Care, Orthopedic Surgery Date of Admission Nov 05, 2017 at 16:00 Home Medications Home Medications Reviewed patient Home Medication Reconciliation performed by pharmacy medication reconciliations registered respiratory technician and/or nursing. Patients Allergies have been reviewed. 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 Type II Diabetes, non-insulin dependent 2. Chronic Diabetic Foot Wounds that are non-healing Surgical Hx: Right Fifth Finger Surgery Right Ankle Repair Left Arm Surgery Left Wrist Surgery Nasal Repair Surgery Tonsillectomy Family Medical History Significant Family History: Diabetes Family History: Diabetes mellitus 19 MOTHER Review of Systems ([facility]) Constitutional: see HPI EENTM: no symptoms reported Respiratory: no symptoms reported Cardiovascular: no symptoms reported Gastrointestinal: see HPI Genitourinary: no symptoms reported Musculoskeletal: see HPI Skin: see HPI Psychiatric/Neurological: No Symptoms Reported Reviewed Test Results Reviewed Test Results Lab Microbiology 11/05/17 Gram Stain, Resulted Pending 11/05/17 Wound Culture - Preliminary, Resulted Gram Negative Melchor 11/05/17 14:00: Lactic Acid Level 1.08 Laboratory Tests Test 11/05/17 14:00 11/05/17 15:50 11/06/17 05:15 Range/Units White Blood Count 14.6 H 7.4 4.3-11.0 10^3/uL Red Blood Count 4.95 4.56 4.35-5.85 10^6/uL Hemoglobin 13.7 12.3 L 13.3-17.7 G/DL Hematocrit 40 38 L 40-54 % Mean Corpuscular Volume 82 83 80-99 FL Mean Corpuscular Hemoglobin 28 27 25-34 PG Mean Corpuscular Hemoglobin Concent 34 33 32-36 G/DL Red Cell Distribution Width 17.1 H 17.5 H 10.0-14.5 % Platelet Count 349 270 130-400 10^3/uL Mean Platelet Volume 9.1 9.4 7.4-10.4 FL Neutrophils (%) (Auto) 82 H 71 42-75 % Lymphocytes (%) (Auto) 10 L 16 12-44 % Monocytes (%) (Auto) 8 10 0-12 % Eosinophils (%) (Auto) 0 2 0-10 % Basophils (%) (Auto) 0 0 0-10 % Neutrophils # (Auto) 11.9 H 5.3 1.8-7.8 X 10^3 Lymphocytes # (Auto) 1.5 1.2 1.0-4.0 X 10^3 Monocytes # (Auto) 1.1 H 0.8 0.0-1.0 X 10^3 Eosinophils # (Auto) 0.0 0.1 0.0-0.3 10^3/uL Basophils # (Auto) 0.0 0.0 0.0-0.1 10^3/uL Neutrophils % (Manual) 82 % Lymphocytes % (Manual) 10 % Monocytes % (Manual) 6 % Eosinophils % (Manual) 0 % Basophils % (Manual) 0 % Band Neutrophils 2 % Anisocytosis SLIGHT Sodium Level 129 L 136 135-145 MMOL/L Potassium Level 4.3 4.3 3.6-5.0 MMOL/L Chloride Level 98 107 98-107 MMOL/L Carbon Dioxide Level 21 22 21-32 MMOL/L Anion Gap 10 7 5-14 MMOL/L Blood Urea Nitrogen 19 H 16 7-18 MG/DL Creatinine 0.98 0.75 0.60-1.30 MG/DL Estimat Glomerular Filtration Rate > 60 > 60 BUN/Creatinine Ratio 19 21 Glucose Level 148 H 114 H 70-105 MG/DL Lactic Acid Level 1.08 0.50-2.00 MMOL/L Calcium Level 9.4 8.4 L 8.5-10.1 MG/DL Magnesium Level 2.0 1.8-2.4 MG/DL Total Bilirubin 1.2 H 0.6 0.1-1.0 MG/DL Aspartate Amino Transf (AST/SGOT) 34 24 5-34 U/L Alanine Aminotransferase (ALT/SGPT) 63 H 46 0-55 U/L Alkaline Phosphatase 103 77 40-136 U/L Total Protein 7.9 6.2 L 6.4-8.2 GM/DL Albumin 4.2 3.3 3.2-4.5 GM/DL Amylase Level 45 25-125 U/L Lipase 13 8-78 U/L Urine Color YELLOW Urine Clarity CLEAR Urine pH 5 5-9 Urine Specific [place] 1.010 L 1.016-1.022 Urine Protein NEGATIVE NEGATIVE Urine Glucose (UA) NEGATIVE NEGATIVE Urine Ketones NEGATIVE NEGATIVE Urine Nitrite NEGATIVE NEGATIVE Urine Bilirubin NEGATIVE NEGATIVE Urine Urobilinogen NORMAL NORMAL MG/DL Urine Leukocyte Esterase NEGATIVE NEGATIVE Urine RBC (Auto) NEGATIVE NEGATIVE Urine RBC NONE /HPF Urine WBC NONE /HPF Urine Squamous Epithelial Cells RARE /HPF Urine Crystals NONE /LPF Urine Bacteria NONE /HPF Urine Casts NONE /LPF Urine Mucus NEGATIVE /LPF Urine Culture Indicated NO Radiology Date of Exam: 11/05/17 ACUTE ABD SERIES INDICATION: Low back pain. TIME OF EXAM: 3:42 PM FINDINGS: The heart size is normal. Nodular density in the left midlung appears stable to prior chest x-ray from 09/06/17. No free air is identified. There is gas throughout nondistended small and large bowel loops. No bowel wall thickening is seen. No pneumatosis is detected. No pathologic calcifications are seen. IMPRESSION: No acute abnormality is detected. Date of Exam: 11/05/17 CT ABD/PELVIS WO(KIDNEY STONE) PROCEDURE: CT urinary tract, rule out kidney stone. TECHNIQUE: Multiple contiguous axial images were obtained through the abdomen and pelvis without the use of intravenous contrast. DATE: November 05, 2017. COMPARISON: None. INDICATION: 52-year-old male, lower back pain. Evaluation for renal stones. FINDINGS: There are limitations for evaluation of the abdominal organs, neoplastic processes, abscess, and limited evaluation of the vasculature relating to the lack of intravenous contrast. The visualized portions of the lung bases are clear. The heart is not enlarged. There is no pericardial effusion. The liver is normal in size and contour. There is a tiny gallstone. The gallbladder is not distended. There is no pericholecystic fluid. There is no wall thickening of the gallbladder or adjacent inflammatory stranding. There is no intrahepatic or extrahepatic bile duct dilation. The main pancreatic duct is normal in caliber. Unremarkable noncontrast CT appearance of the pancreatic parenchyma. There are small splenic calcifications that likely relate to prior granulomatous disease. The spleen measures just under upper limits of normal in size at 14.4 cm in craniocaudal dimension. The adrenal glands are unremarkable. Unremarkable appearance of the renal parenchyma. The urinary collecting systems are not distended. There is no identified renal or ureteral stone. The urinary bladder is unremarkable in appearance. The intestinal tract is not distended. The appendix is well seen on axial image 110. There is no evidence of acute appendicitis. There is a small fat-containing umbilical hernia. There are atherosclerotic calcifications. There is no identified abnormally enlarged lymph node within the abdomen or pelvis which specifically meets CT size criteria for adenopathy. There is no free intraperitoneal air, drainable fluid collection, or free pelvic fluid. There is no identified acute bony abnormality. There are degenerative changes of the spine. CT is limited for assessment of disc pathology as well as nonbony causes of foraminal and spinal stenosis. Endplate degenerative changes are most notable adjacent to the L4-L5 disc space. There are also mild bilateral facet degenerative changes at this level. IMPRESSION: CT ABDOMEN AND PELVIS. 1. No renal or ureteral stone. 2. No acute abnormality within the abdomen or pelvis. 3. Disc and facet degenerative changes of the lumbar spine, most notable at L4-L5. There are limitations of CT for assessment of disc pathology and assessment of nonbony causes of foraminal and spinal stenosis. 4. Incidental findings, as above. FOOT, RIGHT, 2 VIEW INDICATION: Question cellulitis EXAMINATION: Right foot 11/05/2017 FINDINGS: Two views of foot demonstrate marked deformity and destructive change at the base of the fifth metatarsal with adjacent osseous fragments noted. There is diffuse soft tissue abnormality about the entire visualized foot. Likely destructive change throughout the tarsal bones especially laterally also noted. No definite acute fractures are seen. A rocker-bottom appearance of the foot is also noted with likely neuropathic or Charcot joint. IMPRESSION: 1. Marked soft tissue abnormality which is consistent with the history of cellulitis. 2. Destructive change throughout the midfoot and the base of the fifth metatarsal and possibly portions of the fourth metatarsal not mentioned above highly suspicious for osteomyelitis as well superimposed Charcot joint. Please see the previous MRI from earlier today. Physical Exam-([facility]) Physical Exam Vital Signs VS - Last 72 Hours, by Label 11/05/17 11/05/17 11/05/17 11/05/17 13:50 15:39 17:46 20:05 Temp 101.7 101.7 101.7 Pulse 112 112 112 68 Resp 24 24 24 B/P (MAP) 136/82 (100) 136/82 136/82 (100) Pulse Ox 96 96 96 O2 Delivery Room Air 11/05/17 11/05/17 11/05/17 11/05/17 20:10 21:00 22:00 23:00 Temp 97.9 Pulse 58 67 65 62 Resp 18 B/P (MAP) 109/68 (82) 108/70 (83) 116/78 (91) 105/67 (80) Pulse Ox 96 97 97 97 O2 Delivery Room Air 11/06/17 11/06/17 11/06/17 11/06/17 00:00 01:00 01:03 02:03 Temp 97.8 97.6 97.7 Pulse 62 66 66 68 Resp 18 20 19 B/P (MAP) 98/67 (77) 114/68 (83) 110/63 (79) Pulse Ox 96 96 97 O2 Delivery Room Air Room Air Room Air 11/06/17 11/06/17 11/06/17 11/06/17 03:06 04:11 05:10 06:13 Temp 97.8 97.7 98.1 98.0 Pulse 65 68 63 66 Resp 18 18 18 19 B/P (MAP) 118/63 (81) 115/55 (75) 115/62 (79) 109/63 (78) Pulse Ox 96 96 96 95 O2 Delivery Room Air Room Air Room Air Room Air 6/15/18 6/15/18 6/15/18 6/15/18 06:57 07:00 08:00 12:00 Temp 97.9 97.9 97.8 Pulse 74 74 79 69 Resp 19 20 18 B/P (MAP) 112/75 (87) 101/57 (72) 105/62 (76) Pulse Ox 98 96 100 O2 Delivery Room Air Room Air Room Air 11/06/17 11/06/17 11/06/17 11/06/17 13:00 15:55 19:00 19:59 Temp 98.4 100.4 Pulse 67 71 81 85 Resp 20 20 B/P (MAP) 123/56 (78) 124/63 (83) Pulse Ox 100 96 O2 Delivery Room Air Room Air Capillary Refill : Less Than 3 Seconds General Appearance: WD/WN, no apparent distress Eyes: Bilateral Eye Normal Inspection, Bilateral Eye EOMI HEENT: normal ENT inspection; No pale conjunctivae (R), No pale conjunctivae (L ), No photophobia Neck: non-tender, full range of motion, supple, normal inspection Respiratory: chest non-tender, lungs clear, normal breath sounds, no respiratory distress, no accessory muscle use Cardiovascular: regular rate, rhythm, no gallop Gastrointestinal: normal bowel sounds, non tender, soft, no organomegaly, no pulsatile mass Rectal: deferred Extremities: no calf tenderness, inflammation, slow capillary refill, swelling Neurologic/Psychiatric: 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, alert, normal mood/affect, oriented x 3 Skin: normal color, warm/dry Assessment/Plan Assessment/Plan Admission Dx Osteomyelitis Type II Diabetes with complication Diabetic Neuropathy Obesity, BMI 31 Admission Status: Inpatient Order (span 2 midnights) Reason for Inpatient Admission: treatment of admission conditions (1) Osteomyelitis Status: Acute Assessment & Plan: 11/06 -on broad spectrum abx -large amount of purulent drainage when original dressing removed in ED -consult to wound care, who has been seeing patient -also consult to ortho surgery, as intervention is likely needed due to nature of wound Qualifiers: Qualified Codes: M86.9 - Osteomyelitis, unspecified (2) Type II diabetes mellitus with complication Status: Chronic Assessment & Plan: 11/06 -diabetic diet -sliding scale B -hgb A1C in AM Qualifiers: Qualified Codes: E11.8 - Type 2 diabetes mellitus with unspecified complications (3) Obesity (BMI 30.0-34.9) Status: Chronic (4) Diabetic neuropathy Status: Chronic Assessment & Plan: 11/06 -resume home meds Qualifiers: Qualified Codes: E11.42 - Type 2 diabetes mellitus with diabetic polyneuropathy Clinical Quality Measures DVT/VTE Risk/Contraindication: Risk Factor Score Per Nursin RFS Level Per Nursing on Admit: 4+=Very High Copy Copies To 1: YAYO VO MD, MARGARET E DO Nov 06, 2017 07:37
[2017-11-06] MEDS ORDERED: HYDROcodone/APAP 5 MG/325 MG (LORTAB) TAB PO PRN (08:00)
[2017-11-06] MEDS ORDERED: ONDANSETRON 4 MG (ZOFRAN) ORAL DISSOLVE TAB PO PRN (08:00)
--- NOTE | 2017-11-06 08:23 | Diagnostic Imaging Report ---
PROCEDURE: MR imaging right lower extremity with and without contrast. TECHNIQUE: Multiplanar, multisequence pre and post contrast-enhanced MR imaging of the right lower extremity was accomplished. INDICATION: Dermal wound on the hindfoot-midfoot plantar aspect. Assess extent of infection. COMPARISON: Right foot radiographs from 11/05/2017 at 07:49 p.m. FINDINGS: There is an ulcer extending from the level of the dermis in the region of the lateral hindfoot-midfoot junction that has extension deep to the level of the tarsal bones. There is resultant abnormal T2 hyperintense marrow signal and destruction of the cuboid and navicular bones. Additionally, there is markedly abnormal signal within the residual base of the fifth metatarsal. The remainder of the tarsal bones and metatarsal bases have abnormal T2 hyperintense marrow signal without destruction. The tarsometatarsal joints have multiple subluxations which are features of neuropathic joint. The talus also has markedly abnormal marrow signal which is T2 hyperintense and has associated enhancement. There are no abnormal marrow signal changes within the distal tibia or fibula. Fluid is present throughout the tarsal articulations which demonstrates abnormal enhancements indicative of synovitis. Additionally, there is fluid within the tibiotalar joint and has peripheral enhancement which also represent synovitis which could be infected or noninfected. Achilles is intact. Chronic split tear of the peroneus brevis with associated tenosynovitis. Extensive abnormal T2 hyperintense signal throughout the intrinsic musculature of the foot. IMPRESSION: 1. Markedly abnormal examination with extensive abnormal marrow signal changes involving all of the tarsal bones, the majority of the metatarsal bases as well as the talus. 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 2. Multifocal synovitis throughout the midfoot and ankle could be sterile or infected in nature. Given the associated osseous changes, this should be considered infected. 3. There are no marrow signal changes of the distal tibia or fibula to indicate osteomyelitis in these regions. Dictated by: Dictated on workstation # [id number]
[2017-11-06] MEDS ORDERED: PIPERACILLIN/TAZO 3.375 GM/D5W 100 ML IV NR ×2 (08:30)
[2017-11-06] MEDS ORDERED: DOXY100C42 PO (10:21)
[2017-11-06] MEDS ORDERED: METF500T5 PO (10:21)
[2017-11-06] MEDS ORDERED: FLUC200T5 PO (10:21)
[2017-11-06] MEDS ORDERED: MAGN400T39 PO (10:26)
[2017-11-06] MEDS ORDERED: CALC-654 PO (10:26)
[2017-11-06] MEDS ORDERED: MULT1TAB69 PO (10:26)
[2017-11-06] MEDS ORDERED: POTA99TA21 PO (10:26)
[2017-11-06] MEDS ORDERED: MULT-985 PO (10:26)
[2017-11-06] MEDS ORDERED: ASCO500T6 PO (10:26)
[2017-11-06] MEDS: inSUlin ASPART (NovoLOG) 1 UNIT/0.01 ML (CHARGE PER UNIT) SC SCH ×3 (11:18→20:42)
[2017-11-06] MEDS: PIPERACILLIN/TAZO 3.375 GM/D5W 100 ML IV SCH ×4 (13:46→20:43)
--- NOTE | 2017-11-06 16:38 | Wound Care Assessment ---
Wound Care Assessment Date Seen by Provider: Nov 06, 2017 Time Seen by Provider: 16:35 Chief Complaint R foot infection HPI 52 year old male with infected ulcer of R plantar foot and acute deterioration presenting with sepsis per report. R Charcot foot has been managed by Dr. Price with off-loading, and more recently deteriorated with first an open and now an infected wound. 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) Exam Vital Signs Date Time Temp Pulse Resp B/P (MAP) Pulse Ox O2 Delivery O2 Flow Rate FiO2 11/06/17 13:00 67 11/06/17 12:00 97.8 18 105/62 (76) 100 Room Air Capillary Refill : Less Than 3 Seconds Results Laboratory Tests 11/06/17 05:15: White Blood Count 7.4, Red Blood Count 4.56, Hemoglobin 12.3L, Hematocrit 38L, Mean Corpuscular Volume 83, Mean Corpuscular Hemoglobin 27, Mean Corpuscular Hemoglobin Concent 33, Red Cell Distribution Width 17.5H, Platelet Count 270, Mean Platelet Volume 9.4, Neutrophils (%) (Auto) 71, Lymphocytes (%) (Auto) 16, Monocytes (%) (Auto) 10, Eosinophils (%) (Auto) 2, Basophils (%) (Auto) 0, Neutrophils # (Auto) 5.3, Lymphocytes # (Auto) 1.2, Monocytes # (Auto) 0.8, Eosinophils # (Auto) 0.1, Basophils # (Auto) 0.0, Sodium Level 136, Potassium Level 4.3, Chloride Level 107, Carbon Dioxide Level 22, Anion Gap 7, Blood Urea Nitrogen 16, Creatinine 0.75, Estimat Glomerular Filtration Rate > 60, BUN/ Creatinine Ratio 21, Glucose Level 114H, Calcium Level 8.4L, Total Bilirubin 0.6 , Aspartate Amino Transf (AST/SGOT) 24, Alanine Aminotransferase (ALT/SGPT) 46, Alkaline Phosphatase 77, Total Protein 6.2L, Albumin 3.3 11/06/17 11:06: Glucometer 130H Microbiology 11/05/17 Gram Stain - Final, Resulted 11/05/17 Wound Culture - Preliminary, Resulted Gram Negative Melchor Microbiology 11/05/17 Gram Stain - Final, Resulted 11/05/17 Wound Culture - Preliminary, Resulted Gram Negative Melchor PILI COVARRUBIAS MD Nov 06, 2017 16:38
[2017-11-06] MEDS: DAKIN'S 1/4 STRENGTH (0.125%) 473 ML BTL TOP SCH (18:02)
[2017-11-07] VITALS: BP 112/72
[2017-11-07 03:58] VITALS: BP 129/73
[2017-11-07] MEDS ORDERED: TROUGH ORDER-PHARMACY XX NR (06:00)
[2017-11-07] MEDS: inSUlin ASPART (NovoLOG) 1 UNIT/0.01 ML (CHARGE PER UNIT) SC SCH ×4 (06:07→21:46)
[2017-11-07] MEDS: NS IV 1000 ML 1,000 ML IV SCH ×3 (06:13→15:04)
[2017-11-07] MEDS: PIPERACILLIN/TAZO 3.375 GM/D5W 100 ML IV SCH ×6 (06:13→22:58)
[2017-11-07 07:00] LABS: BASOPHILS % (AUTO) 0 % (0-10); EOSINOPHILS # (AUTO) 0.1 10^3/uL (0.0-0.3); EOSINOPHILS % (AUTO) 2 % (0-10); HEMATOCRIT 36 % (40-54); HEMOGLOBIN 11.9 G/DL (13.3-17.7); LYMPHOCYTES # (AUTO) 1.1 X 10^3 (1.0-4.0); LYMPHOCYTES % (AUTO) 19 % (12-44); MEAN CORPUSCULAR HEMOGLOBIN 28 PG (25-34); MEAN CORPUSCULAR HGB CONC 33 G/DL (32-36); MEAN CORPUSCULAR VOLUME 84 FL (80-99); MEAN PLATELET VOLUME 9.6 FL (7.4-10.4); MONOCYTES # (AUTO) 0.7 X 10^3 (0.0-1.0); MONOCYTES % (AUTO) 11 % (0-12); NEUTROPHILS # (AUTO) 3.9 X 10^3 (1.8-7.8); NEUTROPHILS % (AUTO) 67 % (42-75); PLATELET COUNT 270 10^3/uL (130-400); RED BLOOD COUNT 4.26 10^6/uL (4.35-5.85); RED CELL DISTRIBUTION WIDTH 17.1 % (10.0-14.5); WHITE BLOOD COUNT 5.9 10^3/uL (4.3-11.0)
[2017-11-07 07:19] LABS: BUN/CREATININE RATIO 16; CALCIUM 8.4 MG/DL (8.5-10.1); CARBON DIOXIDE 19 MMOL/L (21-32); CHLORIDE 108 MMOL/L (98-107); CREATININE SERUM 0.79 MG/DL (0.60-1.30); GFR ESTIMATED > 60; GLUCOSE 106 MG/DL (70-105); MAGNESIUM 2.2 MG/DL (1.8-2.4); POTASSIUM 4.1 MMOL/L (3.6-5.0); SODIUM 137 MMOL/L (135-145)
[2017-11-07 07:30] LABS: VANCOMYCIN,TROUGH 12.7 UG/ML (10.0-20.0)
[2017-11-07 08:00] VITALS: BP 96/51
[2017-11-07] MEDS: VANCOMYCIN 2000 MG/NS 500 ML IVPB IV SCH ×4 (08:04→18:57)
[2017-11-07] MEDS: DAKIN'S 1/4 STRENGTH (0.125%) 473 ML BTL TOP SCH (09:22)
--- NOTE | 2017-11-07 10:01 | Consultation ---
History of Present Illness History of Present Illness Patient Consulted On(lucien/time) 11/07/17 09:53 Date Seen by Provider: Nov 07, 2017 Time Seen by Provider: 09:53 Reason for Visit: R foot osteomyleitis History of Present Illness 52 yr old WM with chronic laisha foot wound issues. has been treated for months by wound care and presented to [facility] yesterday with purulent drainage per his R foot. MRI suggests osteomyelitis. The patient tells me that he has been treated by dr gregory with wound care and that he currently has an OR date set for this right foot issue with dr milligan. he is on IV antiobiosis currently Allergies and Home Medications Allergies Coded Allergies: No Known Drug Allergies (Unverified , 10/04/14) Home Medications Ascorbic Acid 500 Mg Tablet, 500 MG PO DAILY, (Reported) Calcium Carbonate/Vitamin D3 1 Each Tablet, 1 TAB PO DAILY, (Reported) Doxycycline Monohydrate 100 Mg Capsule, 100 MG PO BID, (Reported) PICKED UP 14 DAY SUPPLY 11-04-17 Fluconazole 200 Mg Tablet, 200 MG PO DAILY, (Reported) 30 DAY SUPPLY PICKED UP 11-01-17 Magnesium Oxide 400 Mg Tablet, 400 MG PO DAILY, (Reported) Metformin HCl 500 Mg Tablet, 500 MG PO BID WITH MEALS, (Reported) Multivitamin 1 Each Tablet, 1 TAB PO DAILY, (Reported) Multivitamin with Minerals 1 Each Tablet, 1 TAB PO DAILY, (Reported) Potassium Gluconate 99 Mg Tablet, 99 MG PO DAILY, (Reported) Patient Home Medication List Home Medication List Reviewed: Yes Past Ukcwwjh-Ikjfup-Igmcsl Hx Patient Social History Alcohol Use: Past History (30 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) Recreational Drug Use: No Smoking Status: Never a Smoker 2nd Hand Smoke Exposure: No Recent Foreign Travel: No Contact w/Someone Who Travel: No Recent Infectious Disease Expo: No Recent Hopitalizations: No Physical Abuse: No Sexual Abuse: No Immunizations Up To Date Tetanus Booster (TDap): Unknown PED Vaccines UTD: No Seasonal Allergies Seasonal Allergies: No Past Medical History Surgeries: Yes (pinky and thumb surgery) Orthopedic, Tonsillectomy Respiratory: No Cardiac: No Neurological: No Reproductive Disorders: No Sexually Transmitted Disease: No HIV/AIDS: No Gastrointestinal: No Musculoskeletal: No Endocrine: Yes Diabetes, Non-Insulin dep Cancer: No Psychosocial: No Nursing Suicide Risk Score: 0 Integumentary: No Blood Disorders: No Family Medical History Diabetes mellitus 19 MOTHER Diabetes Review of Systems-General Constitutional: no symptoms reported Physical Exam-General Problems Physical Exam Vital Signs Vital Signs - First Documented 11/05/17 13:50 Temp 101.7 Pulse 112 Resp 24 B/P (MAP) 136/82 (100) Pulse Ox 96 O2 Delivery Room Air Capillary Refill : Less Than 3 Seconds Extremities: other (R foot small one centimeter open area with trace purulence and some erythema, chronic severe deformity noted on inspection) Assessment/Plan Assessment/Plan Admission Diagnosis/Plan ASSESSMENT: R foot osteomyleitis PLAN: I have spoken with dr mark who has a date set for surgical exploration of the R foot. he is going to see mr sun on thursday and proceed accordingly continue IV antibiosis Clinical Quality Measures DVT/VTE Risk/Contraindication: Risk Factor Score Per Nursin RFS Level Per Nursing on Admit: 4+=Very High HUBERT HIGGINS DO Nov 07, 2017 10:01
[2017-11-07 12:00] VITALS: BP 124/72
--- NOTE | 2017-11-07 13:06 | Progress Note (SOAP) ---
Subjective Subjective/Events-last exam Pt has no new complaints. Review of Systems Date Seen by Provider: Nov 07, 2017 Time Seen by Provider: 11:20 Focused Exam Lactate Level 11/05/17 14:00: Lactic Acid Level 1.08 Objective Exam Last Set of Vital Signs Vital Signs Date Time Temp Pulse Resp B/P (MAP) Pulse Ox O2 Delivery O2 Flow Rate FiO2 11/07/17 08:00 99.9 73 18 96/51 (66) 93 Room Air Capillary Refill : Less Than 3 Seconds I&O Intake and Output 11/07/17 00:00 Intake Total 9160 ml Output Total 3400 ml Balance 5760 ml Intake Oral 4540 ml IV Total 4620 ml Output Urine Total 3400 ml # Voids 3 # Bowel Movements 1 General: Alert, Oriented X3, Cooperative Extremities: Other (feet wrapped) Psych/Mental Status: Mood NL Results/Procedures Lab Laboratory Tests 11/06/17 16:29: Glucometer 102 11/06/17 20:29: Glucometer 133H 11/07/17 05:41: Glucometer 108 11/07/17 06:10: White Blood Count 5.9, Red Blood Count 4.26L, Hemoglobin 11.9L, Hematocrit 36L, Mean Corpuscular Volume 84, Mean Corpuscular Hemoglobin 28, Mean Corpuscular Hemoglobin Concent 33, Red Cell Distribution Width 17.1H, Platelet Count 270, Mean Platelet Volume 9.6, Neutrophils (%) (Auto) 67, Lymphocytes (%) (Auto) 19, Monocytes (%) (Auto) 11, Eosinophils (%) (Auto) 2, Basophils (%) (Auto) 0, Neutrophils # (Auto) 3.9, Lymphocytes # (Auto) 1.1, Monocytes # (Auto) 0.7, Eosinophils # (Auto) 0.1, Basophils # (Auto) 0.0, Sodium Level 137, Potassium Level 4.1, Chloride Level 108H, Carbon Dioxide Level 19L, Anion Gap 10, Blood Urea Nitrogen 13, Creatinine 0.79, Estimat Glomerular Filtration Rate > 60, BUN/ Creatinine Ratio 16, Glucose Level 106H, Calcium Level 8.4L, Magnesium Level 2.2 , C-Reactive Protein High Sensitivity 12.68H, Vancomycin Level Trough 12.7 11/07/17 11:27: Glucometer 112H Microbiology 11/05/17 Blood Culture - Preliminary, Resulted No growth 11/05/17 Gram Stain - Final, Resulted 11/05/17 Wound Culture - Preliminary, Resulted Klebsiella pneumoniae Radiology Date of Exam: 11/05/17 ACUTE ABD SERIES INDICATION: Low back pain. TIME OF EXAM: 3:42 PM FINDINGS: The heart size is normal. Nodular density in the left midlung appears stable to prior chest x-ray from 09/06/17. No free air is identified. There is gas throughout nondistended small and large bowel loops. No bowel wall thickening is seen. No pneumatosis is detected. No pathologic calcifications are seen. IMPRESSION: No acute abnormality is detected. Date of Exam: 11/05/17 CT ABD/PELVIS WO(KIDNEY STONE) PROCEDURE: CT urinary tract, rule out kidney stone. TECHNIQUE: Multiple contiguous axial images were obtained through the abdomen and pelvis without the use of intravenous contrast. DATE: November 05, 2017. COMPARISON: None. INDICATION: 52-year-old male, lower back pain. Evaluation for renal stones. FINDINGS: There are limitations for evaluation of the abdominal organs, neoplastic processes, abscess, and limited evaluation of the vasculature relating to the lack of intravenous contrast. The visualized portions of the lung bases are clear. The heart is not enlarged. There is no pericardial effusion. The liver is normal in size and contour. There is a tiny gallstone. The gallbladder is not distended. There is no pericholecystic fluid. There is no wall thickening of the gallbladder or adjacent inflammatory stranding. There is no intrahepatic or extrahepatic bile duct dilation. The main pancreatic duct is normal in caliber. Unremarkable noncontrast CT appearance of the pancreatic parenchyma. There are small splenic calcifications that likely relate to prior granulomatous disease. The spleen measures just under upper limits of normal in size at 14.4 cm in craniocaudal dimension. The adrenal glands are unremarkable. Unremarkable appearance of the renal parenchyma. The urinary collecting systems are not distended. There is no identified renal or ureteral stone. The urinary bladder is unremarkable in appearance. The intestinal tract is not distended. The appendix is well seen on axial image 110. There is no evidence of acute appendicitis. There is a small fat-containing umbilical hernia. There are atherosclerotic calcifications. There is no identified abnormally enlarged lymph node within the abdomen or pelvis which specifically meets CT size criteria for adenopathy. There is no free intraperitoneal air, drainable fluid collection, or free pelvic fluid. There is no identified acute bony abnormality. There are degenerative changes of the spine. CT is limited for assessment of disc pathology as well as nonbony causes of foraminal and spinal stenosis. Endplate degenerative changes are most notable adjacent to the L4-L5 disc space. There are also mild bilateral facet degenerative changes at this level. IMPRESSION: CT ABDOMEN AND PELVIS. 1. No renal or ureteral stone. 2. No acute abnormality within the abdomen or pelvis. 3. Disc and facet degenerative changes of the lumbar spine, most notable at L4-L5. There are limitations of CT for assessment of disc pathology and assessment of nonbony causes of foraminal and spinal stenosis. 4. Incidental findings, as above. FOOT, RIGHT, 2 VIEW INDICATION: Question cellulitis EXAMINATION: Right foot 11/05/2017 FINDINGS: Two views of foot demonstrate marked deformity and destructive change at the base of the fifth metatarsal with adjacent osseous fragments noted. There is diffuse soft tissue abnormality about the entire visualized foot. Likely destructive change throughout the tarsal bones especially laterally also noted. No definite acute fractures are seen. A rocker-bottom appearance of the foot is also noted with likely neuropathic or Charcot joint. IMPRESSION: 1. Marked soft tissue abnormality which is consistent with the history of cellulitis. 2. Destructive change throughout the midfoot and the base of the fifth metatarsal and possibly portions of the fourth metatarsal not mentioned above highly suspicious for osteomyelitis as well superimposed Charcot joint. Please see the previous MRI from earlier today. Assessment/Plan Assessment/Plan (1) Osteomyelitis Status: Acute Assessment & Plan: 11/06 -on broad spectrum abx -large amount of purulent drainage when original dressing removed in ED -consult to wound care, who has been seeing patient -also consult to ortho surgery, as intervention is likely needed due to nature of wound 11/07/17 -pt seen by ortho - Dr. Vargas will see patient on Thursday Qualifiers: Qualified Codes: M86.9 - Osteomyelitis, unspecified (2) Type II diabetes mellitus with complication Status: Chronic Assessment & Plan: 11/06 -diabetic diet -sliding scale B -hgb A1C in AM 11/07/17 - BS 102-133; A1c pending Qualifiers: Qualified Codes: E11.8 - Type 2 diabetes mellitus with unspecified complications (3) Obesity (BMI 30.0-34.9) Status: Chronic (4) Diabetic neuropathy Status: Chronic Assessment & Plan: 11/06 -resume home meds Qualifiers: Qualified Codes: E11.42 - Type 2 diabetes mellitus with diabetic polyneuropathy Clinical Quality Measures DVT/VTE Risk/Contraindication: Risk Factor Score Per Nursin RFS Level Per Nursing on Admit: 4+=Very High LANI SAMAYOA DO Nov 07, 2017 13:06
[2017-11-07 15:50] VITALS: BP 138/79
[2017-11-07] MEDS: ACETAMINOPHEN 500 MG TAB (TYLENOL) PO PRN (20:20)
[2017-11-07 20:35] VITALS: BP 143/75
[2017-11-08] VITALS (7 sets, daily range): BP systolic 119–142; BP diastolic 68–84
[2017-11-08] MEDS: NS IV 1000 ML 1,000 ML IV SCH ×3 (04:27→13:57)
[2017-11-08 05:34] LABS: BASOPHILS % (AUTO) 0 % (0-10); EOSINOPHILS # (AUTO) 0.1 10^3/uL (0.0-0.3); EOSINOPHILS % (AUTO) 2 % (0-10); HEMATOCRIT 38 % (40-54); HEMOGLOBIN 12.1 G/DL (13.3-17.7); LYMPHOCYTES # (AUTO) 0.9 X 10^3 (1.0-4.0); LYMPHOCYTES % (AUTO) 15 % (12-44); MEAN CORPUSCULAR HEMOGLOBIN 27 PG (25-34); MEAN CORPUSCULAR HGB CONC 32 G/DL (32-36); MEAN CORPUSCULAR VOLUME 83 FL (80-99); MEAN PLATELET VOLUME 9.5 FL (7.4-10.4); MONOCYTES # (AUTO) 0.7 X 10^3 (0.0-1.0); MONOCYTES % (AUTO) 11 % (0-12); NEUTROPHILS # (AUTO) 4.4 X 10^3 (1.8-7.8); NEUTROPHILS % (AUTO) 72 % (42-75); PLATELET COUNT 296 10^3/uL (130-400); RED BLOOD COUNT 4.54 10^6/uL (4.35-5.85); RED CELL DISTRIBUTION WIDTH 17.1 % (10.0-14.5); WHITE BLOOD COUNT 6.2 10^3/uL (4.3-11.0)
[2017-11-08 05:54] LABS: BUN/CREATININE RATIO 15; CARBON DIOXIDE 22 MMOL/L (21-32); CHLORIDE 106 MMOL/L (98-107); CREATININE SERUM 0.79 MG/DL (0.60-1.30); GFR ESTIMATED > 60; GLUCOSE 113 MG/DL (70-105); MAGNESIUM 2.1 MG/DL (1.8-2.4); POTASSIUM 4.3 MMOL/L (3.6-5.0); SODIUM 138 MMOL/L (135-145)
[2017-11-08] MEDS: PIPERACILLIN/TAZO 3.375 GM/D5W 100 ML IV SCH ×6 (06:12→21:56)
[2017-11-08] MEDS: VANCOMYCIN 2000 MG/NS 500 ML IVPB IV SCH ×4 (06:13→18:46)
[2017-11-08] MEDS: inSUlin ASPART (NovoLOG) 1 UNIT/0.01 ML (CHARGE PER UNIT) SC SCH ×4 (06:13→21:55)
--- NOTE | 2017-11-08 12:10 | Progress Note (SOAP) ---
Subjective Subjective/Events-last exam No new issues Review of Systems Date Seen by Provider: Nov 08, 2017 Time Seen by Provider: 10:15 Focused Exam Lactate Level 11/05/17 14:00: Lactic Acid Level 1.08 Objective Exam Last Set of Vital Signs Vital Signs Date Time Temp Pulse Resp B/P (MAP) Pulse Ox O2 Delivery O2 Flow Rate FiO2 11/08/17 08:00 99.0 96 18 126/78 (94) 96 Room Air Capillary Refill : Less Than 3 Seconds I&O Intake and Output 11/08/17 00:00 Intake Total 4290 ml Output Total 9200 ml Balance -4910 ml Intake Oral 3670 ml IV Total 620 ml Output Urine Total 9200 ml General: Alert, Oriented X3, Cooperative Psych/Mental Status: Mood NL Results/Procedures Lab Laboratory Tests 11/07/17 15:58: Glucometer 138H 11/07/17 21:26: Glucometer 108 11/08/17 05:03: White Blood Count 6.2, Red Blood Count 4.54, Hemoglobin 12.1L, Hematocrit 38L, Mean Corpuscular Volume 83, Mean Corpuscular Hemoglobin 27, Mean Corpuscular Hemoglobin Concent 32, Red Cell Distribution Width 17.1H, Platelet Count 296, Mean Platelet Volume 9.5, Neutrophils (%) (Auto) 72, Lymphocytes (%) (Auto) 15, Monocytes (%) (Auto) 11, Eosinophils (%) (Auto) 2, Basophils (%) (Auto) 0, Neutrophils # (Auto) 4.4, Lymphocytes # (Auto) 0.9L, Monocytes # (Auto) 0.7, Eosinophils # (Auto) 0.1, Basophils # (Auto) 0.0, Sodium Level 138, Potassium Level 4.3, Chloride Level 106, Carbon Dioxide Level 22, Anion Gap 10, Blood Urea Nitrogen 12, Creatinine 0.79, Estimat Glomerular Filtration Rate > 60, BUN/ Creatinine Ratio 15, Glucose Level 113H, Calcium Level 9.0, Magnesium Level 2.1 , C-Reactive Protein High Sensitivity 9.63H 11/08/17 05:41: Glucometer 112H 11/08/17 11:27: Glucometer 80 Microbiology 11/05/17 Blood Culture - Preliminary, Resulted No growth 11/05/17 Gram Stain - Final, Resulted 11/05/17 Wound Culture - Preliminary, Resulted Klebsiella pneumoniae 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 TIME OF EXAM: 3:42 PM FINDINGS: The heart size is normal. Nodular density in the left midlung appears stable to prior chest x-ray from 09/06/17. No free air is identified. There is gas throughout nondistended small and large bowel loops. No bowel wall thickening is seen. No pneumatosis is detected. No pathologic calcifications are seen. IMPRESSION: No acute abnormality is detected. Date of Exam: 11/05/17 CT ABD/PELVIS WO(KIDNEY STONE) PROCEDURE: CT urinary tract, rule out kidney stone. TECHNIQUE: Multiple contiguous axial images were obtained through the abdomen and pelvis without the use of intravenous contrast. DATE: November 05, 2017. COMPARISON: None. INDICATION: 52-year-old male, lower back pain. Evaluation for renal stones. FINDINGS: There are limitations for evaluation of the abdominal organs, neoplastic processes, abscess, and limited evaluation of the vasculature relating to the lack of intravenous contrast. The visualized portions of the lung bases are clear. The heart is not enlarged. There is no pericardial effusion. The liver is normal in size and contour. There is a tiny gallstone. The gallbladder is not distended. There is no pericholecystic fluid. There is no wall thickening of the gallbladder or adjacent inflammatory stranding. There is no intrahepatic or extrahepatic bile duct dilation. The main pancreatic duct is normal in caliber. Unremarkable noncontrast CT appearance of the pancreatic parenchyma. There are small splenic calcifications that likely relate to prior granulomatous disease. The spleen measures just under upper limits of normal in size at 14.4 cm in craniocaudal dimension. The adrenal glands are unremarkable. Unremarkable appearance of the renal parenchyma. The urinary collecting systems are not distended. There is no identified renal or ureteral stone. The urinary bladder is unremarkable in appearance. The intestinal tract is not distended. The appendix is well seen on axial image 110. There is no evidence of acute appendicitis. There is a small fat-containing umbilical hernia. There are atherosclerotic calcifications. There is no identified abnormally enlarged lymph node within the abdomen or pelvis which specifically meets CT size criteria for adenopathy. There is no free intraperitoneal air, drainable fluid collection, or free pelvic fluid. There is no identified acute bony abnormality. There are degenerative changes of the spine. CT is limited for assessment of disc pathology as well as nonbony causes of foraminal and spinal stenosis. Endplate degenerative changes are most notable adjacent to the L4-L5 disc space. There are also mild bilateral facet degenerative changes at this level. IMPRESSION: CT ABDOMEN AND PELVIS. 1. No renal or ureteral stone. 2. No acute abnormality within the abdomen or pelvis. 3. Disc and facet degenerative changes of the lumbar spine, most notable at L4-L5. There are limitations of CT for assessment of disc pathology and assessment of nonbony causes of foraminal and spinal stenosis. 4. Incidental findings, as above. FOOT, RIGHT, 2 VIEW INDICATION: Question cellulitis EXAMINATION: Right foot 11/05/2017 FINDINGS: Two views of foot demonstrate marked deformity and destructive change at the base of the fifth metatarsal with adjacent osseous fragments noted. There is diffuse soft tissue abnormality about the entire visualized foot. Likely destructive change throughout the tarsal bones especially laterally also noted. No definite acute fractures are seen. A rocker-bottom appearance of the foot is also noted with likely neuropathic or Charcot joint. IMPRESSION: 1. Marked soft tissue abnormality which is consistent with the history of cellulitis. 2. Destructive change throughout the midfoot and the base of the fifth metatarsal and possibly portions of the fourth metatarsal not mentioned above highly suspicious for osteomyelitis as well superimposed Charcot joint. Please see the previous MRI from earlier today. Assessment/Plan Assessment/Plan (1) Osteomyelitis Status: Acute Assessment & Plan: 11/06 -on broad spectrum abx -large amount of purulent drainage when original dressing removed in ED -consult to wound care, who has been seeing patient -also consult to ortho surgery, as intervention is likely needed due to nature of wound 11/07/17 -pt seen by ortho - Dr. Vargas will see patient on Thursday Qualifiers: Qualified Codes: M86.9 - Osteomyelitis, unspecified (2) Type II diabetes mellitus with complication Status: Chronic Assessment & Plan: 11/06 -diabetic diet -sliding scale B -hgb A1C in AM 11/07/17 - BS 102-133; A1c pending Qualifiers: Qualified Codes: E11.8 - Type 2 diabetes mellitus with unspecified complications (3) Obesity (BMI 30.0-34.9) Status: Chronic (4) Diabetic neuropathy Status: Chronic Assessment & Plan: 11/06 -resume home meds Qualifiers: Qualified Codes: E11.42 - Type 2 diabetes mellitus with diabetic polyneuropathy Clinical Quality Measures DVT/VTE Risk/Contraindication: Risk Factor Score Per Nursin RFS Level Per Nursing on Admit: 4+=Very High LANI SAMAYOA DO Nov 08, 2017 12:10
[2017-11-08] MEDS: ACETAMINOPHEN 500 MG TAB (TYLENOL) PO PRN (18:46)
[2017-11-09 04:59] VITALS: BP 128/68
[2017-11-09] MEDS: PIPERACILLIN/TAZO 3.375 GM/D5W 100 ML IV SCH ×6 (06:07→21:24)
[2017-11-09] MEDS: NS IV 1000 ML 1,000 ML IV SCH ×3 (06:07→18:43)
[2017-11-09] MEDS: inSUlin ASPART (NovoLOG) 1 UNIT/0.01 ML (CHARGE PER UNIT) SC SCH ×4 (06:28→21:40)
[2017-11-09 07:15] LABS: BASOPHILS % (AUTO) 0 % (0-10); EOSINOPHILS # (AUTO) 0.1 10^3/uL (0.0-0.3); EOSINOPHILS % (AUTO) 1 % (0-10); HEMATOCRIT 37 % (40-54); HEMOGLOBIN 12.3 G/DL (13.3-17.7); LYMPHOCYTES # (AUTO) 0.9 X 10^3 (1.0-4.0); LYMPHOCYTES % (AUTO) 14 % (12-44); MEAN CORPUSCULAR HEMOGLOBIN 28 PG (25-34); MEAN CORPUSCULAR HGB CONC 33 G/DL (32-36); MEAN CORPUSCULAR VOLUME 83 FL (80-99); MEAN PLATELET VOLUME 9.6 FL (7.4-10.4); MONOCYTES # (AUTO) 0.8 X 10^3 (0.0-1.0); MONOCYTES % (AUTO) 12 % (0-12); NEUTROPHILS # (AUTO) 4.7 X 10^3 (1.8-7.8); NEUTROPHILS % (AUTO) 72 % (42-75); PLATELET COUNT 287 10^3/uL (130-400); RED BLOOD COUNT 4.48 10^6/uL (4.35-5.85); WHITE BLOOD COUNT 6.5 10^3/uL (4.3-11.0)
[2017-11-09 07:34] LABS: BUN/CREATININE RATIO 16; CARBON DIOXIDE 20 MMOL/L (21-32); CHLORIDE 106 MMOL/L (98-107); CREATININE SERUM 0.79 MG/DL (0.60-1.30); GFR ESTIMATED > 60; GLUCOSE 102 MG/DL (70-105); MAGNESIUM 2.1 MG/DL (1.8-2.4); POTASSIUM 4.5 MMOL/L (3.6-5.0); SODIUM 136 MMOL/L (135-145)
[2017-11-09 08:00] VITALS: BP 126/78
[2017-11-09] MEDS: VANCOMYCIN 2000 MG/NS 500 ML IVPB IV SCH ×4 (08:23→18:44)
[2017-11-09] MEDS: IBUPROFEN 800 MG (MOTRIN) TAB PO PRN (10:45)
[2017-11-09 12:00] VITALS: BP 124/78
--- NOTE | 2017-11-09 14:46 | Progress Note (SOAP) ---
Subjective Subjective/Events-last exam Febrile up to 102 overnight. He is wondering about surgery. Review of Systems Date Seen by Provider: Nov 09, 2017 Time Seen by Provider: 10:49 Objective Exam Last Set of Vital Signs Vital Signs Date Time Temp Pulse Resp B/P (MAP) Pulse Ox O2 Delivery O2 Flow Rate FiO2 11/09/17 13:00 94 11/09/17 12:00 99.8 20 124/78 (93) 97 Room Air Capillary Refill : Less Than 3 SecondsLess Than 3 Seconds I&O Intake and Output 11/09/17 00:00 Intake Total 4720 ml Output Total 8025 ml Balance -3305 ml Intake Oral 3620 ml IV Total 1100 ml Output Urine Total 8025 ml # Bowel Movements 1 General: Alert, No Acute Distress Lungs: Clear to Auscultation, Normal Air Movement Heart: Regular Rate, No Murmurs Extremities: Other (both feet wrapped, right clearly significantly swollen) Neuro: Normal Speech Psych/Mental Status: Mental Status NL Results/Procedures Lab Laboratory Tests 11/08/17 16:14: Glucometer 129H 11/08/17 21:47: Glucometer 120H 11/09/17 06:16: Glucometer 107 11/09/17 06:36: White Blood Count 6.5, Red Blood Count 4.48, Hemoglobin 12.3L, Hematocrit 37L, Mean Corpuscular Volume 83, Mean Corpuscular Hemoglobin 28, Mean Corpuscular Hemoglobin Concent 33, Red Cell Distribution Width 17.0H, Platelet Count 287, Mean Platelet Volume 9.6, Neutrophils (%) (Auto) 72, Lymphocytes (%) (Auto) 14, Monocytes (%) (Auto) 12, Eosinophils (%) (Auto) 1, Basophils (%) (Auto) 0, Neutrophils # (Auto) 4.7, Lymphocytes # (Auto) 0.9L, Monocytes # (Auto) 0.8, Eosinophils # (Auto) 0.1, Basophils # (Auto) 0.0, Sodium Level 136, Potassium Level 4.5, Chloride Level 106, Carbon Dioxide Level 20L, Anion Gap 10, Blood Urea Nitrogen 13, Creatinine 0.79, Estimat Glomerular Filtration Rate > 60, BUN/ Creatinine Ratio 16, Glucose Level 102, Calcium Level 9.0, Magnesium Level 2.1, C-Reactive Protein High Sensitivity 10.40H 11/09/17 11:07: Glucometer 163H Microbiology 11/05/17 Blood Culture - Preliminary, Resulted No growth 11/05/17 Gram Stain - Final, Complete 11/05/17 Wound Culture - Final, Complete Klebsiella pneumoniae 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 TIME OF EXAM: 3:42 PM FINDINGS: The heart size is normal. Nodular density in the left midlung appears stable to prior chest x-ray from 09/06/17. No free air is identified. There is gas throughout nondistended small and large bowel loops. No bowel wall thickening is seen. No pneumatosis is detected. No pathologic calcifications are seen. IMPRESSION: No acute abnormality is detected. Date of Exam: 11/05/17 CT ABD/PELVIS WO(KIDNEY STONE) PROCEDURE: CT urinary tract, rule out kidney stone. TECHNIQUE: Multiple contiguous axial images were obtained through the abdomen and pelvis without the use of intravenous contrast. DATE: November 05, 2017. COMPARISON: None. INDICATION: 52-year-old male, lower back pain. Evaluation for renal stones. FINDINGS: There are limitations for evaluation of the abdominal organs, neoplastic processes, abscess, and limited evaluation of the vasculature relating to the lack of intravenous contrast. The visualized portions of the lung bases are clear. The heart is not enlarged. There is no pericardial effusion. The liver is normal in size and contour. There is a tiny gallstone. The gallbladder is not distended. There is no pericholecystic fluid. There is no wall thickening of the gallbladder or adjacent inflammatory stranding. There is no intrahepatic or extrahepatic bile duct dilation. The main pancreatic duct is normal in caliber. Unremarkable noncontrast CT appearance of the pancreatic parenchyma. There are small splenic calcifications that likely relate to prior granulomatous disease. The spleen measures just under upper limits of normal in size at 14.4 cm in craniocaudal dimension. The adrenal glands are unremarkable. Unremarkable appearance of the renal parenchyma. The urinary collecting systems are not distended. There is no identified renal or ureteral stone. The urinary bladder is unremarkable in appearance. The intestinal tract is not distended. The appendix is well seen on axial image 110. There is no evidence of acute appendicitis. There is a small fat-containing umbilical hernia. There are atherosclerotic calcifications. There is no identified abnormally enlarged lymph node within the abdomen or pelvis which specifically meets CT size criteria for adenopathy. There is no free intraperitoneal air, drainable fluid collection, or free pelvic fluid. There is no identified acute bony abnormality. There are degenerative changes of the spine. CT is limited for assessment of disc pathology as well as nonbony causes of foraminal and spinal stenosis. Endplate degenerative changes are most notable adjacent to the L4-L5 disc space. There are also mild bilateral facet degenerative changes at this level. IMPRESSION: CT ABDOMEN AND PELVIS. 1. No renal or ureteral stone. 2. No acute abnormality within the abdomen or pelvis. 3. Disc and facet degenerative changes of the lumbar spine, most notable at L4-L5. There are limitations of CT for assessment of disc pathology and assessment of nonbony causes of foraminal and spinal stenosis. 4. Incidental findings, as above. FOOT, RIGHT, 2 VIEW INDICATION: Question cellulitis EXAMINATION: Right foot 11/05/2017 FINDINGS: Two views of foot demonstrate marked deformity and destructive change at the base of the fifth metatarsal with adjacent osseous fragments noted. There is diffuse soft tissue abnormality about the entire visualized foot. Likely destructive change throughout the tarsal bones especially laterally also noted. No definite acute fractures are seen. A rocker-bottom appearance of the foot is also noted with likely neuropathic or Charcot joint. IMPRESSION: 1. Marked soft tissue abnormality which is consistent with the history of cellulitis. 2. Destructive change throughout the midfoot and the base of the fifth metatarsal and possibly portions of the fourth metatarsal not mentioned above highly suspicious for osteomyelitis as well superimposed Charcot joint. Please see the previous MRI from earlier today. Assessment/Plan Assessment/Plan (1) Osteomyelitis Status: Acute Assessment & Plan: 11/06 -on broad spectrum abx -large amount of purulent drainage when original dressing removed in ED -consult to wound care, who has been seeing patient -also consult to ortho surgery, as intervention is likely needed due to nature of wound 11/07/17 -pt seen by ortho - Dr. Vargas will see patient on Thursday11/09/17 -Awaiting plans from Ortho, remains febrile in spite of broad spectrum antibiotics Qualifiers: Qualified Codes: M86.9 - Osteomyelitis, unspecified (2) Type II diabetes mellitus with complication Status: Chronic Assessment & Plan: 11/06 -diabetic diet -sliding scale B -hgb A1C in AM 6/16/18 - BS 102-133; A1c pending Qualifiers: Qualified Codes: E11.8 - Type 2 diabetes mellitus with unspecified complications (3) Obesity (BMI 30.0-34.9) Status: Chronic (4) Diabetic neuropathy Status: Chronic Assessment & Plan: 11/06 -resume home meds Qualifiers: Qualified Codes: E11.42 - Type 2 diabetes mellitus with diabetic polyneuropathy Clinical Quality Measures DVT/VTE Risk/Contraindication: Risk Factor Score Per Nursin RFS Level Per Nursing on Admit: 4+=Very High ANGELO CAMPOVERDE MD Nov 09, 2017 2:46 pm
[2017-11-09 16:00] VITALS: BP 100/61
[2017-11-09 20:00] VITALS: BP 123/75
[2017-11-09] MEDS: fentaNYL INJECTION 100 MCG/2 ML AMP IV PRN (23:11)
[2017-11-10] VITALS: BP 129/76
[2017-11-10 03:48] VITALS: BP 130/74
[2017-11-10] MEDS: NS IV 1000 ML 1,000 ML IV SCH ×3 (05:46→17:05)
[2017-11-10] MEDS: VANCOMYCIN 2000 MG/NS 500 ML IVPB IV SCH ×4 (05:47→20:15)
[2017-11-10] MEDS: ACETAMINOPHEN 500 MG TAB (TYLENOL) PO PRN ×2 (05:47→16:29)
[2017-11-10] MEDS: PIPERACILLIN/TAZO 3.375 GM/D5W 100 ML IV SCH ×6 (05:47→23:40)
[2017-11-10] MEDS: inSUlin ASPART (NovoLOG) 1 UNIT/0.01 ML (CHARGE PER UNIT) SC SCH ×4 (06:57→23:40)
[2017-11-10 07:23] LABS: BASOPHILS % (AUTO) 0 % (0-10); EOSINOPHILS # (AUTO) 0.2 10^3/uL (0.0-0.3); EOSINOPHILS % (AUTO) 3 % (0-10); HEMATOCRIT 37 % (40-54); HEMOGLOBIN 11.8 G/DL (13.3-17.7); LYMPHOCYTES # (AUTO) 1.1 X 10^3 (1.0-4.0); LYMPHOCYTES % (AUTO) 19 % (12-44); MEAN CORPUSCULAR HEMOGLOBIN 27 PG (25-34); MEAN CORPUSCULAR HGB CONC 32 G/DL (32-36); MEAN CORPUSCULAR VOLUME 82 FL (80-99); MEAN PLATELET VOLUME 9.4 FL (7.4-10.4); MONOCYTES # (AUTO) 0.7 X 10^3 (0.0-1.0); MONOCYTES % (AUTO) 12 % (0-12); NEUTROPHILS # (AUTO) 3.9 X 10^3 (1.8-7.8); NEUTROPHILS % (AUTO) 66 % (42-75); PLATELET COUNT 299 10^3/uL (130-400); RED BLOOD COUNT 4.43 10^6/uL (4.35-5.85); RED CELL DISTRIBUTION WIDTH 17.2 % (10.0-14.5); WHITE BLOOD COUNT 5.9 10^3/uL (4.3-11.0)
[2017-11-10 07:50] LABS: BUN/CREATININE RATIO 23; CALCIUM 8.9 MG/DL (8.5-10.1); CARBON DIOXIDE 21 MMOL/L (21-32); CHLORIDE 106 MMOL/L (98-107); CREATININE SERUM 0.83 MG/DL (0.60-1.30); GFR ESTIMATED > 60; GLUCOSE 105 MG/DL (70-105); MAGNESIUM 2.1 MG/DL (1.8-2.4); POTASSIUM 4.6 MMOL/L (3.6-5.0); SODIUM 137 MMOL/L (135-145)
[2017-11-10 08:00] VITALS: BP 127/72
[2017-11-10] MEDS ORDERED: GENTAMICIN 40 MG/ML 2 ML INJ SDV ONE (09:11)
[2017-11-10] MEDS ORDERED: fentaNYL INJECTION 100 MCG/2 ML AMP ONE ×4 (09:32→12:22)
[2017-11-10] MEDS ORDERED: MIDAZOLAM 2 MG/2 ML (VERSED) VIAL ONE (09:42)
[2017-11-10] MEDS: LACTATED RINGERS 1,000 ML IV PRN ×3 (09:55→13:20)
--- NOTE | 2017-11-10 10:10 | Progress Note-Pre Operative ---
Pre-Operative Progress Note H&P Reviewed The H&P was reviewed, patient examined and no changes noted. Date Seen by Provider: Nov 10, 2017 Time Seen by Provider: 07:30 Date H&P Reviewed: Nov 10, 2017 Time H&P Reviewed: 07:30 Pre-Operative Diagnosis: Osteomyelitis right foot, Neuropathic right foot ( Charcot foot ), Diabete SHAILA WHITTAKER DO Nov 10, 2017 10:10
[2017-11-10] MEDS ORDERED: ROPIVACAINE 5MG/ML 30ML VIAL ONE ×2 (10:13→12:16)
[2017-11-10] MEDS ORDERED: ONDANSETRON 4 MG/2 ML (SDV) Z0FRAN IVP PRN ×2 (10:30→13:15)
[2017-11-10] MEDS ORDERED: PROMETHAZINE INJ 25 MG/ML (PHENERGAN) AMP IVP PRN (10:30)
[2017-11-10] MEDS ORDERED: BISACODYL 10 MG SUPP (DULCOLAX) PR PRN (10:30)
[2017-11-10] MEDS ORDERED: KETAMINE HCL 100 MG/ML 5 ML VIAL ONE (11:01)
--- NOTE | 2017-11-10 11:55 | Progress Note (SOAP) ---
Subjective Subjective/Events-last exam Remains febrile. Plan for OR for amputation today. Review of Systems Date Seen by Provider: Nov 10, 2017 Time Seen by Provider: 08:47 Objective Exam Last Set of Vital Signs Vital Signs Date Time Temp Pulse Resp B/P (MAP) Pulse Ox O2 Delivery O2 Flow Rate FiO2 11/10/17 08:00 98.8 84 16 127/72 (90) 95 Room Air Capillary Refill : Less Than 3 SecondsLess Than 3 Seconds I&O Intake and Output 11/10/17 00:00 Intake Total 3182 ml Output Total 4975 ml Balance -1793 ml Intake Oral 2582 ml IV Total 600 ml Output Urine Total 4975 ml # Bowel Movements 4 General: Alert, No Acute Distress Lungs: Clear to Auscultation, Normal Air Movement Heart: Regular Rate, No Murmurs Neuro: Normal Speech Psych/Mental Status: Mental Status NL Results/Procedures Lab Laboratory Tests 11/09/17 16:46: Glucometer 105 11/09/17 20:52: Glucometer 165H 11/10/17 06:46: White Blood Count 5.9, Red Blood Count 4.43, Hemoglobin 11.8L, Hematocrit 37L, Mean Corpuscular Volume 82, Mean Corpuscular Hemoglobin 27, Mean Corpuscular Hemoglobin Concent 32, Red Cell Distribution Width 17.2H, Platelet Count 299, Mean Platelet Volume 9.4, Neutrophils (%) (Auto) 66, Lymphocytes (%) (Auto) 19, Monocytes (%) (Auto) 12, Eosinophils (%) (Auto) 3, Basophils (%) (Auto) 0, Neutrophils # (Auto) 3.9, Lymphocytes # (Auto) 1.1, Monocytes # (Auto) 0.7, Eosinophils # (Auto) 0.2, Basophils # (Auto) 0.0, Sodium Level 137, Potassium Level 4.6, Chloride Level 106, Carbon Dioxide Level 21, Anion Gap 10, Blood Urea Nitrogen 19H, Creatinine 0.83, Estimat Glomerular Filtration Rate > 60, BUN /Creatinine Ratio 23, Glucose Level 105, Calcium Level 8.9, Magnesium Level 2.1 , C-Reactive Protein High Sensitivity 11.02H Microbiology 11/05/17 Blood Culture - Preliminary, Resulted No growth 11/05/17 Gram Stain - Final, Complete 11/05/17 Wound Culture - Final, Complete Klebsiella pneumoniae Staph, Coag Neg (COLLAR CUTTER) Radiology Date of Exam: 11/05/17 ACUTE ABD SERIES INDICATION: Low back pain. TIME OF EXAM: 3:42 PM FINDINGS: The heart size is normal. Nodular density in the left midlung appears stable to prior chest x-ray from 09/06/17. No free air is identified. There is gas throughout nondistended small and large bowel loops. No bowel wall thickening is seen. No pneumatosis is detected. No pathologic calcifications are seen. IMPRESSION: No acute abnormality is detected. Date of Exam: 11/05/17 CT ABD/PELVIS WO(KIDNEY STONE) PROCEDURE: CT urinary tract, rule out kidney stone. TECHNIQUE: Multiple contiguous axial images were obtained through the abdomen and pelvis without the use of intravenous contrast. DATE: November 05, 2017. COMPARISON: None. INDICATION: 52-year-old male, lower back pain. Evaluation for renal stones. FINDINGS: There are limitations for evaluation of the abdominal organs, neoplastic processes, abscess, and limited evaluation of the vasculature relating to the lack of intravenous contrast. The visualized portions of the lung bases are clear. The heart is not enlarged. There is no pericardial effusion. The liver is normal in size and contour. There is a tiny gallstone. The gallbladder is not distended. There is no pericholecystic fluid. There is no wall thickening of the gallbladder or adjacent inflammatory stranding. There is no intrahepatic or extrahepatic bile duct dilation. The main pancreatic duct is normal in caliber. Unremarkable noncontrast CT appearance of the pancreatic parenchyma. There are small splenic calcifications that likely relate to prior granulomatous disease. The spleen measures just under upper limits of normal in size at 14.4 cm in craniocaudal dimension. The adrenal glands are unremarkable. Unremarkable appearance of the renal parenchyma. The urinary collecting systems are not distended. There is no identified renal or ureteral stone. The urinary bladder is unremarkable in appearance. The intestinal tract is not distended. The appendix is well seen on axial image 110. There is no evidence of acute appendicitis. There is a small fat-containing umbilical hernia. There are atherosclerotic calcifications. There is no identified abnormally enlarged lymph node within the abdomen or pelvis which specifically meets CT size criteria for adenopathy. There is no free intraperitoneal air, drainable fluid collection, or free pelvic fluid. There is no identified acute bony abnormality. There are degenerative changes of the spine. CT is limited for assessment of disc pathology as well as nonbony causes of foraminal and spinal stenosis. Endplate degenerative changes are most notable adjacent to the L4-L5 disc space. There are also mild bilateral facet degenerative changes at this level. IMPRESSION: CT ABDOMEN AND PELVIS. 1. No renal or ureteral stone. 2. No acute abnormality within the abdomen or pelvis. 3. Disc and facet degenerative changes of the lumbar spine, most notable at L4-L5. There are limitations of CT for assessment of disc pathology and assessment of nonbony causes of foraminal and spinal stenosis. 4. Incidental findings, as above. FOOT, RIGHT, 2 VIEW INDICATION: Question cellulitis EXAMINATION: Right foot 11/05/2017 FINDINGS: Two views of foot demonstrate marked deformity and destructive change at the base of the fifth metatarsal with adjacent osseous fragments noted. There is diffuse soft tissue abnormality about the entire visualized foot. Likely destructive change throughout the tarsal bones especially laterally also noted. No definite acute fractures are seen. A rocker-bottom appearance of the foot is also noted with likely neuropathic or Charcot joint. IMPRESSION: 1. Marked soft tissue abnormality which is consistent with the history of cellulitis. 2. Destructive change throughout the midfoot and the base of the fifth metatarsal and possibly portions of the fourth metatarsal not mentioned above highly suspicious for osteomyelitis as well superimposed Charcot joint. Please see the previous MRI from earlier today. Assessment/Plan Assessment/Plan (1) Osteomyelitis Status: Acute Assessment & Plan: 11/06 -on broad spectrum abx -large amount of purulent drainage when original dressing removed in ED -consult to wound care, who has been seeing patient -also consult to ortho surgery, as intervention is likely needed due to nature of wound 11/07/17 -pt seen by ortho - Dr. Vargas will see patient on Thursday11/09/17 -Awaiting plans from Ortho, remains febrile in spite of broad spectrum antibiotics 11/10- plan for OR today Qualifiers: Qualified Codes: M86.9 - Osteomyelitis, unspecified (2) Type II diabetes mellitus with complication Status: Chronic Assessment & Plan: 11/06 -diabetic diet -sliding scale B -hgb A1C in AM 11/07/17 - BS 102-133; A1c pending Qualifiers: Qualified Codes: E11.8 - Type 2 diabetes mellitus with unspecified complications (3) Obesity (BMI 30.0-34.9) Status: Chronic (4) Diabetic neuropathy Status: Chronic Assessment & Plan: 11/06 -resume home meds Qualifiers: Qualified Codes: E11.42 - Type 2 diabetes mellitus with diabetic polyneuropathy Clinical Quality Measures DVT/VTE Risk/Contraindication: Risk Factor Score Per Nursin RFS Level Per Nursing on Admit: 4+=Very High ANGELO CAMPOVERDE MD Nov 10, 2017 11:55 am
[2017-11-10] MEDS ORDERED: NEO/POLY/BAC (NEOSPORIN) OINT 15 GM TUBE ONE (12:30)
--- NOTE | 2017-11-10 12:49 | Progress Note-Post Operative ---
Post-Operative Progess Note Surgeon (s)/Gripper Installer (s) Surgeon Josue Costa DO Gripper Installer: Emilio Romero APRN, STANDPIPE TENDER-C Pre-Operative Diagnosis Osteomyelitis right foot, Neuropathic right foot ( Charcot foot ), Diabete Post-Operative Diagnosis same Procedure & Operative Findings Date of Procedure 11/10/17 Procedure Performed/Findings Right below the knee amputation Anesthesia Type general with femoral and popliteal blocik Estimated Blood Loss Estimated blood loss (mL): 200 Specimens/Packing Specimens Removed lower right leg EMILIO ROMERO APRN Nov 10, 2017 12:49 pm
[2017-11-10] MEDS ORDERED: MEPERIDINE (DEMEROL) INJ 50 MG/ML IVP PRN (13:15)
[2017-11-10] MEDS ORDERED: fentaNYL INJECTION 100 MCG/2 ML AMP IVP PRN (13:15)
[2017-11-10] MEDS ORDERED: HYDROmorphone 1 MG/ML (DILAUDID) 1 ML SYRINGE ONE (13:35)
[2017-11-10] MEDS: HYDROmorphone 1 MG/ML (DILAUDID) 1 ML SYRINGE IV PRN ×2 (13:40→13:50)
[2017-11-10 16:00] VITALS: BP 145/75
[2017-11-10 20:31] VITALS: BP 127/76
[2017-11-11 00:02] VITALS: BP 110/70
[2017-11-11] MEDS: NS IV 1000 ML 1,000 ML IV SCH ×4 (03:10→20:36)
[2017-11-11 04:18] VITALS: BP 120/70
[2017-11-11 05:27] LABS: BASOPHILS % (AUTO) 0 % (0-10); EOSINOPHILS # (AUTO) 0.1 10^3/uL (0.0-0.3); EOSINOPHILS % (AUTO) 2 % (0-10); HEMATOCRIT 33 % (40-54); HEMOGLOBIN 10.9 G/DL (13.3-17.7); LYMPHOCYTES # (AUTO) 1.1 X 10^3 (1.0-4.0); LYMPHOCYTES % (AUTO) 22 % (12-44); MEAN CORPUSCULAR HEMOGLOBIN 28 PG (25-34); MEAN CORPUSCULAR HGB CONC 33 G/DL (32-36); MEAN CORPUSCULAR VOLUME 84 FL (80-99); MEAN PLATELET VOLUME 9.4 FL (7.4-10.4); MONOCYTES # (AUTO) 0.6 X 10^3 (0.0-1.0); MONOCYTES % (AUTO) 12 % (0-12); NEUTROPHILS # (AUTO) 3.1 X 10^3 (1.8-7.8); NEUTROPHILS % (AUTO) 63 % (42-75); PLATELET COUNT 255 10^3/uL (130-400); RED BLOOD COUNT 3.96 10^6/uL (4.35-5.85); RED CELL DISTRIBUTION WIDTH 16.8 % (10.0-14.5); WHITE BLOOD COUNT 4.9 10^3/uL (4.3-11.0)
[2017-11-11 05:48] LABS: BUN/CREATININE RATIO 16; CALCIUM 8.6 MG/DL (8.5-10.1); CARBON DIOXIDE 21 MMOL/L (21-32); CHLORIDE 105 MMOL/L (98-107); CREATININE SERUM 0.79 MG/DL (0.60-1.30); GFR ESTIMATED > 60; GLUCOSE 93 MG/DL (70-105); MAGNESIUM 2.2 MG/DL (1.8-2.4); POTASSIUM 4.4 MMOL/L (3.6-5.0); SODIUM 137 MMOL/L (135-145)
[2017-11-11] MEDS: inSUlin ASPART (NovoLOG) 1 UNIT/0.01 ML (CHARGE PER UNIT) SC SCH ×4 (06:08→21:30)
[2017-11-11] MEDS: PIPERACILLIN/TAZO 3.375 GM/D5W 100 ML IV SCH ×6 (06:12→21:31)
[2017-11-11] MEDS: VANCOMYCIN 2000 MG/NS 500 ML IVPB IV SCH ×2 (06:12)
[2017-11-11] MEDS: fentaNYL INJECTION 100 MCG/2 ML AMP IV PRN ×4 (06:13→23:59)
[2017-11-11 08:00] VITALS: BP 106/74
[2017-11-11] MEDS: HYDROcodone/APAP 10 MG/325 MG (LORTAB) TAB PO PRN ×4 (10:02→20:28)
[2017-11-11] MEDS ORDERED: LACTATED RINGERS 1,000 ML IV PRN (10:38)
[2017-11-11] MEDS ORDERED: BUPIVACAINE 0.5% 30 ML (SENSORCAINE) VIAL ONE (11:16)
[2017-11-11] MEDS ORDERED: ONDANSETRON 4 MG/2 ML (SDV) Z0FRAN ONE (11:29)
[2017-11-11] MEDS ORDERED: PROPOFOL INJECTION 50 ML IV ONE ×3 (11:29→12:40)
[2017-11-11] MEDS ORDERED: MIDAZOLAM 10 MG/2 ML (VERSED) VIAL ONE (11:30)
[2017-11-11] MEDS ORDERED: fentaNYL INJECTION 100 MCG/2 ML AMP ONE (11:30)
[2017-11-11] MEDS ORDERED: VANCOMYCIN 1000 MG/VIAL ONE (12:10)
[2017-11-11] MEDS ORDERED: GENTAMICIN 40 MG/ML 2 ML INJ SDV ONE ×2 (12:10→12:12)
--- NOTE | 2017-11-11 12:48 | Progress Note-Post Operative ---
Post-Operative Progess Note Surgeon (s)/Clinical Nursing Director (s) Surgeon YAYO WORRELL DPM Clinical Nursing Director: NONE Pre-Operative Diagnosis Osteomyelitis right foot, Neuropathic right foot ( Charcot foot ), Diabete Post-Operative Diagnosis 5TH RAY RESECTION LLE with PLACEMENT OF BONE VOID FILLER Procedure & Operative Findings Date of Procedure 11/11/17 Procedure Performed/Findings OSTEOMYELITIS Anesthesia Type MAC Estimated Blood Loss Estimated blood loss (mL): Minimal Specimens/Packing Specimens Removed Left 5th Ray YAYO WORRELL DPM Nov 11, 2017 12:48
[2017-11-11] MEDS ORDERED: morphine INJ 10 MG/ML 1ML (SYR OR VIAL) IVP PRN (13:00)
[2017-11-11] MEDS ORDERED: MEPERIDINE (DEMEROL) INJ 50 MG/ML IVP PRN (13:00)
[2017-11-11] MEDS ORDERED: HYDROmorphone 1 MG/ML (DILAUDID) 1 ML SYRINGE IV PRN (13:00)
[2017-11-11] MEDS ORDERED: ONDANSETRON 4 MG/2 ML (SDV) Z0FRAN IVP PRN (13:00)
[2017-11-11] MEDS ORDERED: PROMETHAZINE INJ 25 MG/ML (PHENERGAN) AMP IVP PRN (13:00)
[2017-11-11] MEDS: ENOXAPARIN 40 MG/0.4 ML (LOVENOX) SYR SC SCH (13:41)
[2017-11-11 13:45] VITALS: BP 119/69
--- NOTE | 2017-11-11 14:15 | Progress Note (SOAP) ---
Subjective Subjective/Events-last exam To OR yesterday with right BKA, this morning headed back to OR for right toe. Afebrile last 24 hours. Review of Systems Date Seen by Provider: Nov 11, 2017 Time Seen by Provider: 11:05 Objective Exam Last Set of Vital Signs Vital Signs Date Time Temp Pulse Resp B/P (MAP) Pulse Ox O2 Delivery O2 Flow Rate FiO2 11/11/17 10:23 Nasal Cannula 4.00 11/11/17 08:00 97.2 104 22 106/74 (85) 93 Capillary Refill : Less Than 3 SecondsLess Than 3 Seconds I&O Intake and Output 11/11/17 00:00 Intake Total 3500 ml Output Total 2500 ml Balance 1000 ml Intake Oral 1500 ml IV Total 2000 ml Output Urine Total 2300 ml Estimated Blood Loss 200 ml General: Alert, No Acute Distress Neuro: Normal Speech Results/Procedures Lab Laboratory Tests 11/10/17 15:55: Glucometer 134H 11/10/17 20:18: Glucometer 131H 11/11/17 05:09: White Blood Count 4.9, Red Blood Count 3.96L, Hemoglobin 10.9L, Hematocrit 33L, Mean Corpuscular Volume 84, Mean Corpuscular Hemoglobin 28, Mean Corpuscular Hemoglobin Concent 33, Red Cell Distribution Width 16.8H, Platelet Count 255, Mean Platelet Volume 9.4, Neutrophils (%) (Auto) 63, Lymphocytes (%) (Auto) 22, Monocytes (%) (Auto) 12, Eosinophils (%) (Auto) 2, Basophils (%) (Auto) 0, Neutrophils # (Auto) 3.1, Lymphocytes # (Auto) 1.1, Monocytes # (Auto) 0.6, Eosinophils # (Auto) 0.1, Basophils # (Auto) 0.0, Sodium Level 137, Potassium Level 4.4, Chloride Level 105, Carbon Dioxide Level 21, Anion Gap 11, Blood Urea Nitrogen 13, Creatinine 0.79, Estimat Glomerular Filtration Rate > 60, BUN/ Creatinine Ratio 16, Glucose Level 93, Calcium Level 8.6, Magnesium Level 2.2, C -Reactive Protein High Sensitivity 8.85H 11/11/17 05:59: Glucometer 92 Microbiology 11/05/17 Blood Culture - Final, Complete No growth 11/05/17 Gram Stain - Final, Complete 11/05/17 Wound Culture - Final, Complete Klebsiella pneumoniae Staph, Coag Neg (RETAIL LOSS PREVENTION OFFICER) Radiology Date of Exam: 11/05/17 ACUTE ABD SERIES INDICATION: Low back pain. TIME OF EXAM: 3:42 PM FINDINGS: The heart size is normal. Nodular density in the left midlung appears stable to prior chest x-ray from 09/06/17. No free air is identified. There is gas throughout nondistended small and large bowel loops. No bowel wall thickening is seen. No pneumatosis is detected. No pathologic calcifications are seen. IMPRESSION: No acute abnormality is detected. Date of Exam: 11/05/17 CT ABD/PELVIS WO(KIDNEY STONE) PROCEDURE: CT urinary tract, rule out kidney stone. TECHNIQUE: Multiple contiguous axial images were obtained through the abdomen and pelvis without the use of intravenous contrast. DATE: November 05, 2017. COMPARISON: None. INDICATION: 52-year-old male, lower back pain. Evaluation for renal stones. FINDINGS: There are limitations for evaluation of the abdominal organs, neoplastic processes, abscess, and limited evaluation of the vasculature relating to the lack of intravenous contrast. The visualized portions of the lung bases are clear. The heart is not enlarged. There is no pericardial effusion. The liver is normal in size and contour. There is a tiny gallstone. The gallbladder is not distended. There is no pericholecystic fluid. There is no wall thickening of the gallbladder or adjacent inflammatory stranding. There is no intrahepatic or extrahepatic bile duct dilation. The main pancreatic duct is normal in caliber. Unremarkable noncontrast CT appearance of the pancreatic parenchyma. There are small splenic calcifications that likely relate to prior granulomatous disease. The spleen measures just under upper limits of normal in size at 14.4 cm in craniocaudal dimension. The adrenal glands are unremarkable. Unremarkable appearance of the renal parenchyma. The urinary collecting systems are not distended. There is no identified renal or ureteral stone. The urinary bladder is unremarkable in appearance. The intestinal tract is not distended. The appendix is well seen on axial image 110. There is no evidence of acute appendicitis. There is a small fat-containing umbilical hernia. There are atherosclerotic calcifications. There is no identified abnormally enlarged lymph node within the abdomen or pelvis which specifically meets CT size criteria for adenopathy. There is no free intraperitoneal air, drainable fluid collection, or free pelvic fluid. There is no identified acute bony abnormality. There are degenerative changes of the spine. CT is limited for assessment of disc pathology as well as nonbony causes of foraminal and spinal stenosis. Endplate degenerative changes are most notable adjacent to the L4-L5 disc space. There are also mild bilateral facet degenerative changes at this level. IMPRESSION: CT ABDOMEN AND PELVIS. 1. No renal or ureteral stone. 2. No acute abnormality within the abdomen or pelvis. 3. Disc and facet degenerative changes of the lumbar spine, most notable at L4-L5. There are limitations of CT for assessment of disc pathology and assessment of nonbony causes of foraminal and spinal stenosis. 4. Incidental findings, as above. FOOT, RIGHT, 2 VIEW INDICATION: Question cellulitis EXAMINATION: Right foot 11/05/2017 FINDINGS: Two views of foot demonstrate marked deformity and destructive change at the base of the fifth metatarsal with adjacent osseous fragments noted. There is diffuse soft tissue abnormality about the entire visualized foot. Likely destructive change throughout the tarsal bones especially laterally also noted. No definite acute fractures are seen. A rocker-bottom appearance of the foot is also noted with likely neuropathic or Charcot joint. IMPRESSION: 1. Marked soft tissue abnormality which is consistent with the history of cellulitis. 2. Destructive change throughout the midfoot and the base of the fifth metatarsal and possibly portions of the fourth metatarsal not mentioned above highly suspicious for osteomyelitis as well superimposed Charcot joint. Please see the previous MRI from earlier today. Assessment/Plan Assessment/Plan (1) Osteomyelitis Status: Acute Assessment & Plan: 11/06 -on broad spectrum abx -large amount of purulent drainage when original dressing removed in ED -consult to wound care, who has been seeing patient -also consult to ortho surgery, as intervention is likely needed due to nature of wound 11/07/17 -pt seen by ortho - Dr. Vargas will see patient on Thursday11/09/17 -Awaiting plans from Ortho, remains febrile in spite of broad spectrum antibiotics 11/10- plan for OR today 11/11- POD#1 s/p right BKA, to OR today for left toe. Continue zosyn, will d/c vanc. Qualifiers: Qualified Codes: M86.9 - Osteomyelitis, unspecified (2) Type II diabetes mellitus with complication Status: Chronic Assessment & Plan: 11/06 -diabetic diet -sliding scale B -hgb A1C in AM 11/07/17 - BS 102-133; A1c pending 11/11- A1c 5.7 Qualifiers: Qualified Codes: E11.8 - Type 2 diabetes mellitus with unspecified complications (3) Obesity (BMI 30.0-34.9) Status: Chronic (4) Diabetic neuropathy Status: Chronic Assessment & Plan: 11/06 -resume home meds Qualifiers: Qualified Codes: E11.42 - Type 2 diabetes mellitus with diabetic polyneuropathy Clinical Quality Measures DVT/VTE Risk/Contraindication: Risk Factor Score Per Nursin RFS Level Per Nursing on Admit: 4+=Very High ANGELO CAMPOVERDE MD Nov 11, 2017 2:15 pm
[2017-11-11 15:46] VITALS: BP 113/75
--- NOTE | 2017-11-11 18:46 | OPERATIVE REPORT ---
DATE OF SERVICE: 11/10/2017 PREOPERATIVE DIAGNOSES: 1. Osteomyelitis, right foot. 2. Neuropathic right foot (Charcot foot). POSTOPERATIVE DIAGNOSES: 1. Osteomyelitis, right foot. 2. Neuropathic right foot (Charcot foot). PROCEDURE: Below the knee amputation right leg. SURGEON: Dr. Josue Whittaker. REFINERY SUPERINTENDENT: VICENTE Cross. SURGICAL DIRECTOR METABOLISM DUTIES: Emilio Ellis, kitchen assistant was utilized throughout the entire procedure for the patient positioning, retraction of soft tissues, wound closure both deep and superficial dressing application and the patient transfer. ANESTHESIA: General with femoral and popliteal nerve block. INDICATIONS AND FINDINGS: The patient is a 52-year-old male seen with a chief complaint of right foot pain and swelling. The patient initially injured his right foot in March of 2017. The patient has a history of diabetes mellitus. He has a significant amount of neuropathy in both lower extremities. The patient had sustained a Charcot foot and has been wearing the boot. He noticed a progressive deformity of his right foot and ankle with a varus deformity in his ankle walking on the lateral aspect of his foot. The patient developed an ulceration on the plantar lateral aspect of the right foot. This has been treated for months with the wound care clinic. The patient had a significant increase in the swelling and pain in the right foot. He had a significant amount of drainage. He was admitted through the emergency room. Cultures revealed Klebsiella pneumoniae from the drainage in the right foot. An MRI evaluation and plain film x-rays were reviewed. The patient had significant destruction of his lateral tarsal bones as well as the base of the fourth and fifth metatarsal. His MRI demonstrated osteomyelitis within the mid foot and in the metatarsals as well. The patient had essentially an insensate right foot. The patient was taken to surgery where a below the knee amputation on the right was performed. PROCEDURE IN DETAIL: The patient was taken to the operating room and placed supine upon the operating table and a general inhalation anesthetic was administered. A well-padded pneumatic tourniquet was placed about the upper aspect of the right thigh. A Betadine prep and drape in usual sterile fashion performed throughout the right lower extremity. A stockinette was placed about the right foot and sealed the operative site. The proposed incision sites were then marked on the skin and an area of 15 mm from the joint line, a curvilinear incision was made over the anterior aspect of the right leg after elevating and exsanguinating the leg and filling the tourniquet to 300 mmHg pressure. The incision was carried back quite slightly proximal in a fish mouth type fashion with the long flap twice the diameter incision site created on the posterior aspect of the leg. The incision was deepened to the periosteum over the anterior surface of the tibia and laterally. The musculature was divided over the anterolateral aspect of the leg and vessels identified were both cauterized and tied with 0 Vicryl suture. An oscillating saw was then used to transect the tibia. A 1 cm proximal to this, the fibula was transected as well. The amputation knife was used to divide the soft tissues posterior to the tibia and the fibula in a tapered fashion distally towards the distal end of the flap. The large vessels posterior to the tibia were identified. I delineated bluntly and sharply with scissors and 0 and #1 Vicryl sutures were used to tie the vessels as well as the nerve, which was pulled distally and divided and allowed to retract proximal to the tip of the stump. The anterior surface of the stump was bevelled with the oscillating saw as well as a rasp. The tourniquet was released. Hemostasis was obtained with electrocautery. Wound was irrigated extensively with normal saline solution. The musculature of the posterior flap was then drawn anteriorly over the anterior surface of the tibial stump as well as the fibula and multiple #1 Vicryl sutures were used to secure the myofascial flap to the periosteum and fascia and the anterior aspect of the amputation site. This was in an interrupted fashion. Subcutaneous tissues were then closed with interrupted 0 Vicryl suture. The skin flap was then closed with multiple interrupted vertical mattress sutures with very loosely placed running suture placed as well. An Adaptic Neosporin bulky dressing was placed above the amputation stump with Elastoplast tape applied to the stump for compression and for attachment to the area of his leg above the knee. The patient then underwent regional nerve blocks by anesthesia. The patient was awakened and was transported to postop recovery with anesthesia personnel present in satisfactory condition. Job ID: [id number] DocumentID: [id number] Dictated Date: 11/11/2017 09:35:30 Die Maker Stamping Date: 11/11/2017 18:45:56 Dictated By: JOSUE WHITTAKER DO
[2017-11-11 20:00] VITALS: BP 122/64
[2017-11-11] MEDS: SENNA W/DOCUSATE (SENOKOT S) TABLET PO SCH (21:30)
[2017-11-12] VITALS: BP 112/71
[2017-11-12] MEDS: HYDROcodone/APAP 10 MG/325 MG (LORTAB) TAB PO PRN ×4 (00:24→14:49)
[2017-11-12] MEDS: fentaNYL INJECTION 100 MCG/2 ML AMP IV PRN ×2 (02:47→05:28)
--- NOTE | 2017-11-12 03:17 | OPERATIVE REPORT ---
DATE OF SERVICE: 11/11/2017 SURGEON: Trenton Worrell DPM SEO EXPERT: None. PREOPERATIVE DIAGNOSIS: Osteomyelitis, left fifth metatarsal. POSTOPERATIVE DIAGNOSIS: Osteomyelitis, left fifth metatarsal. PROCEDURE PERFORMED: Left fifth ray amputation with placement of left 5th ray resection with placement of bone void filler. ANESTHESIA: Monitored anesthetic care. HEMOSTASIS: Locally controlled. ESTIMATED BLOOD LOSS: 25 mL. MATERIALS USED: 3-0 nylon and a Stimulan antibiotic bone void filler. INTRAOPERATIVE INJECTABLES: 20 mL of 0.5% Marcaine plain. COMPLICATIONS: None. INDICATIONS FOR THE PROCEDURE: The patient is a 52-year-old male with history of osteomyelitis of his left fifth metatarsal. He has exhausted all conservative measures at this time is requiring surgical intervention. He signed consent prior to being taken back to the OR. DESCRIPTION OF PROCEDURE: Under mild sedation, the patient was brought into the OR and placed on the operating table in supine position. Following administration of IV sedation, the left lower extremity was scrubbed, prepped and draped in aseptic manner and proper time was performed. Left lower extremity was identified as surgical site. Next, an approximately elliptical incisions were made extending over the fifth toe and around the fifth ray back to the level of the proximal one third of the fifth metatarsal. The incision was deepened down to the level of bone and the fifth toe was then disarticulated and passed from the surgical field. The soft tissues were then released off the dorsal and plantar aspects of the fifth metatarsal and the fifth metatarsal was then resected using a sagittal saw at the level of the proximal one third of the fifth metatarsal. This was then passed from the surgical field. The wound was then flushed with copious amounts of sterile saline under pulse lavage and then it was flushed with pulse lavage. Next, the Stimulan antibiotic beads were then made for a bone void filler on the back table consisting of the Stimulan cement and 1 gram of vancomycin and 80 mg of gentamicin. These were then packed into beads as they dried. They were then placed into the foot to fill the void of the wound. The skin was then reapproximated and closed using 3-0 nylon. 20 mL 0.5% Marcaine plain were injected in the foot and the foot was dressed with a dry sterile dressing consisting of 4 x 4's, cast padding and the Michael wrap. The patient was transferred from OR to recovery with vital signs stable and neurovascular status intact to the left lower extremity. Job ID: [id number] DocumentID: [id number] Dictated Date: 11/11/2017 15:57:31 Sheepskin Pickler Date: 11/12/2017 03:16:48 Dictated By: TRENTON WORRELL DPM
[2017-11-12 04:00] VITALS: BP 119/73
[2017-11-12] MEDS: PIPERACILLIN/TAZO 3.375 GM/D5W 100 ML IV SCH ×2 (05:29)
[2017-11-12] MEDS: inSUlin ASPART (NovoLOG) 1 UNIT/0.01 ML (CHARGE PER UNIT) SC SCH ×4 (06:18→21:17)
--- NOTE | 2017-11-12 07:10 | Progress Note (SOAP) ---
Subjective Date Seen by Provider: Nov 12, 2017 Time Seen by Provider: 07:06 Subjective/Events-last exam Patient awake and alert in room at this time. POD #2 s/p right BKA. Currently complians of moderate to severe burning pain to right stump. No other complaints. Objective Exam Vital Signs Date Time Temp Pulse Resp B/P (MAP) Pulse Ox O2 Delivery O2 Flow Rate FiO2 11/12/17 04:00 98.3 68 20 119/73 (88) 97 Room Air 11/12/17 01:00 63 11/12/17 00:00 97.8 67 20 112/71 (85) 97 Room Air 11/11/17 21:00 Room Air 11/11/17 20:00 98.6 71 16 122/64 (83) 97 Room Air 11/11/17 19:00 72 11/11/17 15:46 97.3 69 18 113/75 (88) 98 Room Air 11/11/17 13:46 58 11/11/17 13:45 97.0 57 14 119/69 (86) 97 Room Air 11/11/17 10:23 Nasal Cannula 4.00 11/11/17 09:00 Room Air 11/11/17 08:00 97.2 104 22 106/74 (85) 93 Room Air I & O 11/12/17 07:00 Intake Total 2642 ml Output Total 2400 ml Balance 242 ml Capillary Refill : Less Than 3 SecondsLess Than 3 Seconds General Appearance: No Apparent Distress Extremity: Normal Capillary Refill, No Pedal Edema Neurologic/Psychiatric: Alert, Oriented x3, No Motor/Sensory Deficits, Normal Mood/Affect Skin: Normal Color, Warm/Dry (right BKA site dressing is CDI without abnormalities. ) Results Lab Laboratory Tests 11/11/17 14:04: Glucometer 103 11/11/17 15:48: Glucometer 93 11/11/17 20:18: Glucometer 195H 11/12/17 06:11: Glucometer 105 Microbiology 11/05/17 Blood Culture - Final, Complete No growth 11/05/17 Gram Stain - Final, Complete 11/05/17 Wound Culture - Final, Complete Klebsiella pneumoniae Staph, Coag Neg (NUT SHELLER) Assessment/Plan Assessment/Plan Assess & Plan/Chief Complaint A: s/p right BKA P: work to control pain, likely with need some neurontin or lyrica for neuropathic pain. dressing change on stump tomorrow. Clinical Quality Measures DVT/VTE Risk/Contraindication: Risk Factor Score Per Nursin RFS Level Per Nursing on Admit: 4+=Very High BLAKE ROMERO APRN Nov 12, 2017 7:10 am
[2017-11-12 08:00] VITALS: BP 123/66
[2017-11-12 08:01] LABS: HEMOGLOBIN 10.5 G/DL (13.3-17.7); MEAN PLATELET VOLUME 9.8 FL (7.4-10.4); RED BLOOD COUNT 3.86 10^6/uL (4.35-5.85); RED CELL DISTRIBUTION WIDTH 17.2 % (10.0-14.5); WHITE BLOOD COUNT 5.6 10^3/uL (4.3-11.0)
[2017-11-12] MEDS: SENNA W/DOCUSATE (SENOKOT S) TABLET PO SCH ×2 (08:21→20:02)
[2017-11-12] MEDS: GABAPENTIN 300 MG (NEURONTIN) CAP PO SCH ×2 (08:21→20:02)
[2017-11-12] MEDS: ASPIRIN E.C. 325 MG (ECOTRIN) TABLET PO SCH (08:21)
[2017-11-12] MEDS: NS IV 1000 ML 1,000 ML IV SCH (08:23)
--- NOTE | 2017-11-12 09:36 | Progress Note (SOAP) ---
Subjective Subjective/Events-last exam Afebrile. Having pain and difficulty sleeping. Review of Systems Date Seen by Provider: Nov 12, 2017 Time Seen by Provider: 08:40 Objective Exam Last Set of Vital Signs Vital Signs Date Time Temp Pulse Resp B/P (MAP) Pulse Ox O2 Delivery O2 Flow Rate FiO2 11/12/17 08:00 97.9 72 18 123/66 (85) 98 Room Air 11/11/17 10:23 4.00 Capillary Refill : Less Than 3 SecondsLess Than 3 Seconds I&O Intake and Output 11/12/17 00:00 Intake Total 3042 ml Output Total 3500 ml Balance -458 ml Intake Oral 522 ml IV Total 2520 ml Output Urine Total 3500 ml General: Other (drowsy) Lungs: Clear to Auscultation, Normal Air Movement Heart: Regular Rate, No Murmurs Neuro: Normal Speech Results/Procedures Lab Laboratory Tests 11/11/17 14:04: Glucometer 103 11/11/17 15:48: Glucometer 93 11/11/17 20:18: Glucometer 195H 11/12/17 06:11: Glucometer 105 11/12/17 06:32: White Blood Count 5.6, Red Blood Count 3.86L, Hemoglobin 10.5L, Hematocrit 32L, Mean Corpuscular Volume 84, Mean Corpuscular Hemoglobin 27, Mean Corpuscular Hemoglobin Concent 32, Red Cell Distribution Width 17.2H, Platelet Count 281, Mean Platelet Volume 9.8 Microbiology 11/05/17 Blood Culture - Final, Complete No growth 11/05/17 Gram Stain - Final, Complete 11/05/17 Wound Culture - Final, Complete Klebsiella pneumoniae Staph, Coag Neg (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 TIME OF EXAM: 3:42 PM FINDINGS: The heart size is normal. Nodular density in the left midlung appears stable to prior chest x-ray from 09/06/17. No free air is identified. There is gas throughout nondistended small and large bowel loops. No bowel wall thickening is seen. No pneumatosis is detected. No pathologic calcifications are seen. IMPRESSION: No acute abnormality is detected. Date of Exam: 11/05/17 CT ABD/PELVIS WO(KIDNEY STONE) PROCEDURE: CT urinary tract, rule out kidney stone. TECHNIQUE: Multiple contiguous axial images were obtained through the abdomen and pelvis without the use of intravenous contrast. DATE: November 05, 2017. COMPARISON: None. INDICATION: 52-year-old male, lower back pain. Evaluation for renal stones. FINDINGS: There are limitations for evaluation of the abdominal organs, neoplastic processes, abscess, and limited evaluation of the vasculature relating to the lack of intravenous contrast. The visualized portions of the lung bases are clear. The heart is not enlarged. There is no pericardial effusion. The liver is normal in size and contour. There is a tiny gallstone. The gallbladder is not distended. There is no pericholecystic fluid. There is no wall thickening of the gallbladder or adjacent inflammatory stranding. There is no intrahepatic or extrahepatic bile duct dilation. The main pancreatic duct is normal in caliber. Unremarkable noncontrast CT appearance of the pancreatic parenchyma. There are small splenic calcifications that likely relate to prior granulomatous disease. The spleen measures just under upper limits of normal in size at 14.4 cm in craniocaudal dimension. The adrenal glands are unremarkable. Unremarkable appearance of the renal parenchyma. The urinary collecting systems are not distended. There is no identified renal or ureteral stone. The urinary bladder is unremarkable in appearance. The intestinal tract is not distended. The appendix is well seen on axial image 110. There is no evidence of acute appendicitis. There is a small fat-containing umbilical hernia. There are atherosclerotic calcifications. There is no identified abnormally enlarged lymph node within the abdomen or pelvis which specifically meets CT size criteria for adenopathy. There is no free intraperitoneal air, drainable fluid collection, or free pelvic fluid. There is no identified acute bony abnormality. There are degenerative changes of the spine. CT is limited for assessment of disc pathology as well as nonbony causes of foraminal and spinal stenosis. Endplate degenerative changes are most notable adjacent to the L4-L5 disc space. There are also mild bilateral facet degenerative changes at this level. IMPRESSION: CT ABDOMEN AND PELVIS. 1. No renal or ureteral stone. 2. No acute abnormality within the abdomen or pelvis. 3. Disc and facet degenerative changes of the lumbar spine, most notable at L4-L5. There are limitations of CT for assessment of disc pathology and assessment of nonbony causes of foraminal and spinal stenosis. 4. Incidental findings, as above. FOOT, RIGHT, 2 VIEW INDICATION: Question cellulitis EXAMINATION: Right foot 11/05/2017 FINDINGS: Two views of foot demonstrate marked deformity and destructive change at the base of the fifth metatarsal with adjacent osseous fragments noted. There is diffuse soft tissue abnormality about the entire visualized foot. Likely destructive change throughout the tarsal bones especially laterally also noted. No definite acute fractures are seen. A rocker-bottom appearance of the foot is also noted with likely neuropathic or Charcot joint. IMPRESSION: 1. Marked soft tissue abnormality which is consistent with the history of cellulitis. 2. Destructive change throughout the midfoot and the base of the fifth metatarsal and possibly portions of the fourth metatarsal not mentioned above highly suspicious for osteomyelitis as well superimposed Charcot joint. Please see the previous MRI from earlier today. Assessment/Plan Assessment/Plan (1) Osteomyelitis Status: Acute Assessment & Plan: 11/06 -on broad spectrum abx -large amount of purulent drainage when original dressing removed in ED -consult to wound care, who has been seeing patient -also consult to ortho surgery, as intervention is likely needed due to nature of wound 11/07/17 -pt seen by ortho - Dr. Vargas will see patient on Thursday11/09/17 -Awaiting plans from Ortho, remains febrile in spite of broad spectrum antibiotics 11/10- plan for OR today 11/11- POD#1 s/p right BKA, to OR today for left toe. Continue zosyn, will d/c vanc. 11/12- POD#2 s/p right BKA, POD#1 s/p amputation left fifth toe. Remains afebrile , switch to oral ab (amox/clav) for 7 day course. Rehab consult. Qualifiers: Qualified Codes: M86.9 - Osteomyelitis, unspecified (2) Type II diabetes mellitus with complication Status: Chronic Assessment & Plan: 11/06 -diabetic diet -sliding scale B -hgb A1C in AM 11/07/17 - BS 102-133; A1c pending 11/11- A1c 5.7 Qualifiers: Qualified Codes: E11.8 - Type 2 diabetes mellitus with unspecified complications (3) Obesity (BMI 30.0-34.9) Status: Chronic (4) Diabetic neuropathy Status: Chronic Assessment & Plan: 11/06 -resume home meds Qualifiers: Qualified Codes: E11.42 - Type 2 diabetes mellitus with diabetic polyneuropathy (5) At risk for deep venous thrombosis Status: Acute Assessment & Plan: Enoxaparin Clinical Quality Measures DVT/VTE Risk/Contraindication: Risk Factor Score Per Nursin RFS Level Per Nursing on Admit: 4+=Very High ANGELO CAMPOVERDE MD Nov 12, 2017 09:36
--- NOTE | 2017-11-12 10:55 | Anesthesia-General Post-Op ---
MAC Patient Condition Mental Status/LOC: Same as Preop Cardiovascular: Satisfactory Nausea/Vomiting: Absent Respiratory: Satisfactory Pain: Controlled Complications: Absent Post Op Complications Complications None Follow Up Care/Instructions Patient Instructions None needed. Anesthesiology Discharge Order Discharge Order Patient is doing well, no complaints, stable vital signs, no apparent adverse anesthesia problems. No complications reported per nursing. PARVIZ WAGNER CRNA Nov 12, 2017 10:55
--- NOTE | 2017-11-12 11:40 | Physical Therapy Evaluation ---
PT Evaluation-General Medical Diagnosis Admission Date Nov 05, 2017 at 16:00 Medical Diagnosis: sepsis/cellulitis right foot/s/p BKA right Onset Date: Nov 05, 2017 Therapy Diagnosis Therapy Diagnosis: generalized weakness and impaired mobility Height/Weight Height (Feet): 6 Height (Inches): 7.00 Weight (Pounds): 276 Weight (Ounces): 5.0 Precautions Precautions/Isolations: Standard Precautions Weight Bear Status Right Lower Extremity: Right Non Weight Bearing Left Lower Extremity: Left Non Weight Bearing Referral Physician: Earl Reason for Referral: Evaluation/Treatment Medical History Pertinent Medical History: DM, Neuropathy Additional Medical History nonhealing DM wound right foot and left foot. Current History s/p right BKA 11/10/17 and left 5th "ray" resection Reviewed History: Yes Social History Home: Single Level Current Living Status: Spouse Prior/Core FIM Prior Level of Function Functional [place] Measure 0=Not Assessed/NA 4=Minimal Assistance 1=Total Assistance 5=Supervision or Setup 2=Maximal Assistance 6=Modified [place] 3=Moderate Assistance 7=Complete [place] Bed Mobility: 7 Transfers (B,C,W/C) (FIM): 7 Gait: 7 Locomotion: 7 works 2 jobs PT Evaluation-Current Subjective Patient agrees to PT. Pain Numeric Pain Scale: 10-Worst Possible Pain Location: Right Location Body Site: Calf (stump) Pain Description: Stabbing, Acute, Burning, Sharp Objective Patient Orientation: Normal For Age Problem Solving: Good Attachments: Oxygen, IV ROM/Strength ROM Lower Extremities bilateral LE WNL (limited due to pain) Strength Lower Extremities right LE 3/5 grossly/left LE 3/5 grossly (no formal testing due to surgery sites ) Integumentary/Posture Integumentary refer to nursing notes Bowel Incontinence: No Bladder Incontinence: No Posture WFL Neuromuscular (Tone, Coordination, Reflexes) coordination grossly intact/noted neuropathy left LE Sensory Vision: Functional Hearing: Functional Sensation Right Lower Extremit: Impaired Sensation Left Lower Extremity: Impaired Transfers Functional [place] Measure 0=Not Assessed/NA 4=Minimal Assistance 1=Total Assistance 5=Supervision or Setup 2=Maximal Assistance 6=Modified [place] 3=Moderate Assistance 7=Complete [place] Transfers (B, C, W/C) (FIM): 5 Scootin Rollin Supine to/from Sit: 5 will utilize slide board and w/c for mobility and transfers Gait Mode of Locomotion: Wheelchair Anticipated Mode of Locomotion: Wheelchair Balance Sitting Static: Normal Sitting Dynamic: Normal Assessment/Needs 52 y.o. male, will benefit from skilled PT to address functional strength and mobility to improve current LOF. Patient is currently limited due to pain right BKA. Education with patient on techniques to decrease pain sensation of stump to assist in improving functional mobility. Rehab Potential: Fair PT Cannon Pinion Adjuster Goals Cannon Pinion Adjuster Goals PT Nursing Home Goals Time Frame: Dec 04, 2017 Transfers (B,C,W/C) (FIM): 5 (slide board ) Wheelchair (FIM): 5 Wheelchair distance (FIM): 3=150 ft Wheelchair Level of Assist: 5 PT Plan Problem List Problem List: Activity Tolerance, Functional Strength, Balance, Transfer Treatment/Plan Treatment Plan: Continue Plan of Care Treatment Plan: Bed Mobility, Education, Functional Activity Cesar, Functional Strength, Safety, Therapeutic Exercise, Transfers Treatment Duration: Dec 04, 2017 Frequency: 11 times per week Estimated Hrs Per Day: 1 hour per day Patient and/or Family Agrees t: Yes Safety Risks/Education Patient Education: Disease Process, Safety Issues Teaching Recipient: Patient, Family Teaching Methods: Demonstration, Discussion Response to Teaching: Verbalize Understanding, Return Demonstration Discharge Recommendations Therapy D/C Recommendations: Acute Rehab, Home w/ Family Support, Physical Therapy Home Care Equpiment Recommendations-D/C: Wheelchair Cushion, Manual Wheelchair, Other, Please Explain (slideboard for transfers) Time/GCodes Time In: 1050 Time Out: 1105 Total Billed Treatment Time: 15 Total Billed Treatment 1 visit EVModC 15 min G Codes Necessary: BROOKE Couch PT Nov 12, 2017 11:40
[2017-11-12 12:00] VITALS: BP 135/80
--- NOTE | 2017-11-12 12:01 | Podiatry Progress Note ---
Standard Progress Note Progress Notes/Assess & Plan Date Seen by Provider: Nov 12, 2017 Time Seen by Provider: 11:59 Progress/Assessment & Plan Pt seen at LLE is doing well minimal pain. He is AAOx 3. Left foot dressing C/D/I, no drainage, calf supple NT Final Diagnosis POD # 1 S/P 5th ray resection LLE -Okay for D/C to SNF facility per podiatry standpoint -Nurse to change dressing with dry sterile dressing and floyd wrap daily -WB to LLE in surgical shoe for transfer only. YAYO WORRELL DPM Nov 12, 2017 12:01
[2017-11-12] MEDS: ENOXAPARIN 40 MG/0.4 ML (LOVENOX) SYR SC SCH (12:50)
--- NOTE | 2017-11-12 13:28 | Occupational Therapy Eval ---
OT Evaluation-General/PLF Medical Diagnosis Admission Date Nov 05, 2017 at 16:00 Medical Diagnosis: sepsis/cellulitis right foot/s/p BKA right Onset Date: Nov 05, 2017 Therapy Diagnosis Therapy Diagnosis: Weakness, Decreased ADL skills Height/Weight Height (Feet): 6 Height (Inches): 7.00 Weight (Pounds): 276 Weight (Ounces): 5.0 Precautions Precautions/Isolations: Standard Precautions Safety Interventions: None Weight Bear Status Weight Bearing Restriction: Non Weight Bearing Location Restriction: L LE Referral Physician: Earl Referral Reason: Activity Tolerance, Self Care, Evaluation/Treatment, Strengthening/ROM Medical History Pertinent Medical History: DM, Neuropathy Additional Medical History 11-10-17 Right BKA 11-11-17 5th resection Left LE Osteomyelitis, Neuropathy, obesity Current History Pt. is NWB bilateral LE. Prior to this surgery, pt. was independent with all daily tasks, and working. Reviewed History: Yes Social History Home: Single Level Current Living Status: Significant Other Entry Into Home: Level Entry ADL-Prior Level of Function ADL PLOF Comments Pt. was independent DME/Equipment: Shower DME/Equipment Comments Pt. has a new roll in shower with grab bars. No seat or other adaptive equipment. 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 reports a "burning" sensation in right residual limb. Pt. has had pain medication. Appearance Pt. in bed. Seems to be in distress with movement. Nursing states that he has been given pain medication. Mental Status/Objective Patient Orientation: Person, Place Attachments: Pascal Catheter, IV Current Hand Dominance: Right Upper Extremity ROM WFL Upper Extremity Strength WFL ADL-Treatment Functional [place] Measure 0=Not Assessed/NA 4=Minimal Assistance 1=Total Assistance 5=Supervision or Setup 2=Maximal Assistance 6=Modified [place] 3=Moderate Assistance 7=Complete IndependenceIRFPAI Quality Coding Scale 6 Independent with activity with or without an assistive device 5 Patient requires set up or clean up by helper. Patient completes activity by themselves 4 Supervision or touching assist (CGA). [place] provide cues , steadying assist 3 The helper provides less than half the effort to complete the activity 2 The helper provides more than half the effort to complete the activity 1 Dependent. The helper does all the effort to complete an activity 7 Patient refused to complete or attempt activity 9 The patient did not perform the activity before the current illness or injury 88 Not attempted due to Medical conditions or safety concerns Bathing (FIM): 3 (Pt. spongebathes while seated on side of bed. Significant other in room and begins to assist pt. with bathing. Pt. able to wash arms and front herberth area.) Transfers (B, C, W/C) (FIM): 5 (SBA with increased time for supine-sit and sit- supine.) Other Treatments OT begins treatment and PT assists with co-treat due to pt's hesitation and pain level. Pt. is able to transfer supine-sit with SBA, but reports significant "burning" sensation in right LE. At this time, it is determined that pt. would not tolerate using slide board to wheelchair. Slide board and appropriate wheelchair provided in room and pt. is encouraged that tomorrow he will transfer via slideboard to wheelchair. Pt. agreeable. OT facilitated ADL treatment and hand placement while PT facilitated transfer training and education for safety. Pt. verbalizes understanding. All needs met back in bed. Education OT Patient Education: Correct positioning, Modified ADL techniques, Progress toward Goal/Update tx plan, Purpose of tx/functional activities, Reviewed precautions, Rehab process, Transfer techniques Teaching Recipient: Patient Teaching Methods: Demonstration, Discussion Response to Teaching: Verbalize Understanding, Return Demonstration OT Short Term Goals Short Term Goals Time Frame: Nov 19, 2017 Eating(FIM): 5 Grooming(FIM): 5 Bathing(FIM): 4 Upper Body Dressing(FIM): 5 Lower Body Dressing(FIM): 4 Toileting(FIM): 4 Transfers (B,C,W/C) (FIM): 4 Toilet/Commode Transfer(FIM): 4 Additional Short Term Goals: 1-Demonstrate ADL Tasks, 2-Verbalize Understanding , 3-ImproveStrength/Cesar 1=Demonstrate adherence to instructed precautions during ADL tasks. 2=Patient will verbalize/demonstrate understanding of assistive devices/ modifications for ADL. 3=Patient will improve strength/tolerance for activity to enable patient to perform ADL's. OT Care Home Goals Channel Cementer Outsole Machine Goals Time Frame: Dec 03, 2017 Eating (FIM): 6 Grooming(FIM): 6 Bathing(FIM): 5 Upper Body Dressing(FIM): 5 Lower Body Dressing(FIM): 5 Toileting(FIM): 6 Transfers (B,C,W/C) (FIM): 6 Toilet/Commode Transfer(FIM): 6 Shower Transfer(FIM): 5 Additional Goals: 1-Demonstrate ADL Tasks, 2-Verbalize Understanding, 3- ImproveStrength/Cesar 1=Demonstrate adherence to instructed precautions during ADL tasks. 2=Patient will verbalize/demonstrate understanding of assistive devices/ modifications for ADL. 3=Patient will improve strength/tolerance for activity to enable patient to perform ADL's. OT Education/Plan Problem List/Assessment Assessment: Decreased Activ Tolerance, Dependent Transfers, Impaired Bed Mobility, Impaired I ADL's, Impaired Self-Care Skills Discharge Recommendations Plan/Recommendations: Continue POC Therapy D/C Recommendations: Acute Rehab Equpiment Recommendations-D/C: Bath Chair Comment Wheelchair and slideboard. Pt. will also need a shower chair. Other equipment needs possibly to be determined. Target Placement Pt. would benefit from rehab placement to increase overall strength and independence. Pt's significant other has to go back to work in December, (works in a school.) Treatment Plan/Plan of Care Treatment,Training & Education: Yes Patient would benefit from OT for education, treatment and training to promote independence in ADL's, mobility, safety and/or upper extremity function for ADL' s. Plan of Care: ADL Retraining, Functional Mobility, UE Funct Exercise/Act Treatment Duration: Dec 03, 2017 Frequency: 5 times per week Estimated Hrs Per Day: .5 hour per day Agreement: Yes Rehab Potential: Good Time/GCodes Start Time: 10:40 Stop Time: 11:18 Total Time Billed (hr/min): 23 (23 minutes (38minutes with partial co-treat)) Billed Treatment Time [id number] 1, EV [id number] Co-tx with PT (no charge) [id number] ADL x 13minutes KAI JOHNSON OT Nov 12, 2017 13:28
--- NOTE | 2017-11-12 13:30 | Anesthesia-General Post-Op ---
General Patient Condition Mental Status/LOC: Same as Preop Cardiovascular: Satisfactory Nausea/Vomiting: Absent Respiratory: Satisfactory Pain: Controlled Complications: Absent Post Op Complications Complications None Follow Up Care/Instructions Patient Instructions None needed. Anesthesia/Patient Condition Patient Condition post date note for 11/11/17: Patient is doing well, no complaints, stable vital signs, no apparent adverse anesthesia problems. No complications reported per nursing. ELZA OH CRNA Nov 12, 2017 13:30
[2017-11-12] MEDS: IBUPROFEN 800 MG (MOTRIN) TAB PO PRN (16:11)
[2017-11-12 16:37] VITALS: BP 122/63
[2017-11-12] MEDS: AUGMENTIN 875 MG TAB (AMOXICILLIN/CLAVULANATE) PO SCH (17:36)
[2017-11-12] MEDS: ACETAMINOPHEN 500 MG TAB (TYLENOL) PO PRN (17:37)
[2017-11-12 20:30] VITALS: BP 119/67
[2017-11-13] VITALS: BP 104/65
[2017-11-13 04:02] VITALS: BP 122/64
[2017-11-13] MEDS: inSUlin ASPART (NovoLOG) 1 UNIT/0.01 ML (CHARGE PER UNIT) SC SCH (06:30)
[2017-11-13] MEDS: AUGMENTIN 875 MG TAB (AMOXICILLIN/CLAVULANATE) PO SCH (06:30)
[2017-11-13] MEDS ORDERED: ASPI325T32 PO (06:49)
[2017-11-13] MEDS ORDERED: GABA-488 PO (06:49)
[2017-11-13] MEDS ORDERED: AMOX1TAB12 PO (06:49)
[2017-11-13] MEDS ORDERED: HYDR-3820 PO (06:49)
[2017-11-13] MEDS ORDERED: SENN-20 PO (06:49)
--- NOTE | 2017-11-13 06:57 | Progress Note (SOAP) ---
Subjective Date Seen by Provider: Nov 13, 2017 Time Seen by Provider: 06:54 Subjective/Events-last exam Currently no complaints, doing much better with neurontin, pain currently controlled. Objective Exam Vital Signs Date Time Temp Pulse Resp B/P (MAP) Pulse Ox O2 Delivery O2 Flow Rate FiO2 11/13/17 01:00 70 11/13/17 00:00 97.8 67 18 104/65 (78) 97 Room Air 11/12/17 20:30 97.7 72 20 119/67 (84) 99 Room Air 11/12/17 19:01 80 11/12/17 18:19 99.4 11/12/17 17:37 100.0 11/12/17 16:45 100.2 11/12/17 16:37 100.0 79 20 122/63 (82) 97 Room Air 11/12/17 16:11 100.0 11/12/17 13:00 92 11/12/17 12:00 98.8 81 20 135/80 (98) 97 Room Air 11/12/17 10:39 Nasal Cannula 2.50 11/12/17 08:00 97.9 72 18 123/66 (85) 98 Room Air 11/12/17 07:00 65 I & O 11/13/17 07:00 Intake Total 4490 ml Output Total 4025 ml Balance 465 ml Capillary Refill : Less Than 3 SecondsLess Than 3 Seconds General Appearance: No Apparent Distress Extremity: No Calf Tenderness Neurologic/Psychiatric: Alert, Oriented x3, No Motor/Sensory Deficits, Normal Mood/Affect, poundmaster II-XII Norm as Tested Skin: Normal Color, Warm/Dry (dressing to right leg CDI) Results Lab Laboratory Tests 11/12/17 11:21: Glucometer 127H 11/12/17 16:02: Glucometer 114H 11/12/17 20:32: Glucometer 147H 11/13/17 06:29: Glucometer 99 Microbiology 11/05/17 Blood Culture - Final, Complete No growth 11/05/17 Gram Stain - Final, Complete 11/05/17 Wound Culture - Final, Complete Klebsiella pneumoniae Staph, Coag Neg (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 Plan on a dressing change to stump next Thursday. Orthopedics signing off at this point. Will need follow up with Dr. Costa in 2 weeks or when discharged from rehab unit. Patient cleared for DC to skilled or rehab Clinical Quality Measures DVT/VTE Risk/Contraindication: Risk Factor Score Per Nursin RFS Level Per Nursing on Admit: 4+=Very High BLAKE ROMERO APRN Nov 13, 2017 6:57 am
[2017-11-13 08:00] VITALS: BP 127/63
[2017-11-13] MEDS: ASPIRIN E.C. 325 MG (ECOTRIN) TABLET PO SCH (08:36)
[2017-11-13] MEDS: GABAPENTIN 300 MG (NEURONTIN) CAP PO SCH (08:36)
[2017-11-13] MEDS: SENNA W/DOCUSATE (SENOKOT S) TABLET PO SCH (08:36)
[2017-11-13] MEDS: HYDROcodone/APAP 10 MG/325 MG (LORTAB) TAB PO PRN (08:37)
[2017-11-13] MEDS ORDERED: ATOR40TA70 PO (09:55)
--- NOTE | 2017-11-13 10:34 | Discharge Summary ---
Diagnosis/Chief Complaint Date of Admission Nov 05, 2017 at 4:00 pm Date of Discharge Nov 13, 2017 at 10:16 am Admission Diagnosis Admission Diagnosis Osteomyelitis Type II Diabetes with complication Diabetic Neuropathy Obesity, BMI 31 Discharge Diagnosis (1) Osteomyelitis Status: Acute Assessment & Plan: 11/06 -on broad spectrum abx -large amount of purulent drainage when original dressing removed in ED -consult to wound care, who has been seeing patient -also consult to ortho surgery, as intervention is likely needed due to nature of wound 11/09/17 -Awaiting plans from Ortho, remains febrile in spite of broad spectrum antibiotics 11/10- plan for OR today 11/11- POD#1 s/p right BKA, to OR today for left toe. Continue zosyn, will d/c vanc. 11/12- POD#2 s/p right BKA, POD#1 s/p ray amputation left fifth metatarsal. Remains afebrile, switch to oral ab (amox/clav) for 7 day course. Transferred to rehab on 11/13. (2) Type II diabetes mellitus with complication Status: Chronic Assessment & Plan: 11/06 -diabetic diet -sliding scale B -hgb A1C in AM 11/11- A1c 5.7 11/13- added atorvastatin to med regimen on d/c to rehab (3) Obesity (BMI 30.0-34.9) (4) Diabetic neuropathy Assessment & Plan: 11/06 -resume home meds Chief Complaint/HPI Chief Complaint/HPI 52 year old male with known diabetic foot wound presents with complaint of fever , chills, abdominal pain. Foot is being treated weekly by wound care, but is swollen and red; when dressing taken down in ED pt had large amount of purulent drainage from wound that does not appear to be healing well. MRI ordered for suspected osteomyelitis, and pt admitted for further wound care, IV abx, and suspected osteomyelitis. Consult to surgery for possible surgical intervention of non-healing wound. Discharge Summary-Simple/Stand Consultations Wound Care, Orthopedic Surgery Discharge Physical Examination Allergies: Coded Allergies: No Known Drug Allergies (Unverified , 10/04/14) Vitals & I&Os Vital Sign - Last 12Hours Date Time Temp Pulse Resp B/P (MAP) Pulse Ox O2 Delivery O2 Flow Rate FiO2 11/13/17 10:13 11/13/17 08:00 97.3 90 24 94 Room Air 11/12/17 10:39 2.50 Intake and Output 11/13/17 00:00 Intake Total 3490 ml Output Total 4025 ml Balance -535 ml General Appearance: Alert, No Acute Distress Respiratory: Clear to Auscultation, Normal Air Movement Cardiovascular: Regular Rate, No Murmurs Psych/Mental Status: Mental Status NL Hospital Course See final discharge diagnosis. Labs Laboratory Tests Test 11/11/17 14:04 11/11/17 15:48 11/11/17 20:18 11/12/17 06:11 Range/Units Glucometer 103 93 195 H 105 70-110 MG/DL Test 11/12/17 06:32 11/12/17 11:21 11/12/17 16:02 11/12/17 20:32 Range/Units White Blood Count 5.6 4.3-11.0 10^3/uL Red Blood Count 3.86 L 4.35-5.85 10^6/uL Hemoglobin 10.5 L 13.3-17.7 G/DL Hematocrit 32 L 40-54 % Mean Corpuscular Volume 84 80-99 FL Mean Corpuscular Hemoglobin 27 25-34 PG Mean Corpuscular Hemoglobin Concent 32 32-36 G/DL Red Cell Distribution Width 17.2 H 10.0-14.5 % Platelet Count 281 130-400 10^3/uL Mean Platelet Volume 9.8 7.4-10.4 FL Glucometer 127 H 114 H 147 H 70-110 MG/DL Test 11/13/17 06:29 Range/Units Glucometer 99 70-110 MG/DL Radiology Reviewed Date of Exam: 11/05/17 ACUTE ABD SERIES INDICATION: Low back pain. TIME OF EXAM: 3:42 PM FINDINGS: The heart size is normal. Nodular density in the left midlung appears stable to prior chest x-ray from 09/06/17. No free air is identified. There is gas throughout nondistended small and large bowel loops. No bowel wall thickening is seen. No pneumatosis is detected. No pathologic calcifications are seen. IMPRESSION: No acute abnormality is detected. Date of Exam: 11/05/17 CT ABD/PELVIS WO(KIDNEY STONE) PROCEDURE: CT urinary tract, rule out kidney stone. TECHNIQUE: Multiple contiguous axial images were obtained through the abdomen and pelvis without the use of intravenous contrast. DATE: November 05, 2017. COMPARISON: None. INDICATION: 52-year-old male, lower back pain. Evaluation for renal stones. FINDINGS: There are limitations for evaluation of the abdominal organs, neoplastic processes, abscess, and limited evaluation of the vasculature relating to the lack of intravenous contrast. The visualized portions of the lung bases are clear. The heart is not enlarged. There is no pericardial effusion. The liver is normal in size and contour. There is a tiny gallstone. The gallbladder is not distended. There is no pericholecystic fluid. There is no wall thickening of the gallbladder or adjacent inflammatory stranding. There is no intrahepatic or extrahepatic bile duct dilation. The main pancreatic duct is normal in caliber. Unremarkable noncontrast CT appearance of the pancreatic parenchyma. There are small splenic calcifications that likely relate to prior granulomatous disease. The spleen measures just under upper limits of normal in size at 14.4 cm in craniocaudal dimension. The adrenal glands are unremarkable. Unremarkable appearance of the renal parenchyma. The urinary collecting systems are not distended. There is no identified renal or ureteral stone. The urinary bladder is unremarkable in appearance. The intestinal tract is not distended. The appendix is well seen on axial image 110. There is no evidence of acute appendicitis. There is a small fat-containing umbilical hernia. There are atherosclerotic calcifications. There is no identified abnormally enlarged lymph node within the abdomen or pelvis which specifically meets CT size criteria for adenopathy. There is no free intraperitoneal air, drainable fluid collection, or free pelvic fluid. There is no identified acute bony abnormality. There are degenerative changes of the spine. CT is limited for assessment of disc pathology as well as nonbony causes of foraminal and spinal stenosis. Endplate degenerative changes are most notable adjacent to the L4-L5 disc space. There are also mild bilateral facet degenerative changes at this level. IMPRESSION: CT ABDOMEN AND PELVIS. 1. No renal or ureteral stone. 2. No acute abnormality within the abdomen or pelvis. 3. Disc and facet degenerative changes of the lumbar spine, most notable at L4-L5. There are limitations of CT for assessment of disc pathology and assessment of nonbony causes of foraminal and spinal stenosis. 4. Incidental findings, as above. FOOT, RIGHT, 2 VIEW INDICATION: Question cellulitis EXAMINATION: Right foot 11/05/2017 FINDINGS: Two views of foot demonstrate marked deformity and destructive change at the base of the fifth metatarsal with adjacent osseous fragments noted. There is diffuse soft tissue abnormality about the entire visualized foot. Likely destructive change throughout the tarsal bones especially laterally also noted. No definite acute fractures are seen. A rocker-bottom appearance of the foot is also noted with likely neuropathic or Charcot joint. IMPRESSION: 1. Marked soft tissue abnormality which is consistent with the history of cellulitis. 2. Destructive change throughout the midfoot and the base of the fifth metatarsal and possibly portions of the fourth metatarsal not mentioned above highly suspicious for osteomyelitis as well superimposed Charcot joint. Please see the previous MRI from earlier today. Discharge Instructions to patient/family Please see electronic discharge instructions given to patient. Discharge Medications Reviewed and agree with Discharge Medication list on patient's Discharge Instruction sheet Clinical Quality Measures DVT/VTE Risk/Contraindication: Risk Factor Score Per Nursin RFS Level Per Nursing on Admit: 4+=Very High Copy Copies To 1: CARMELA Mckeon BETHANY N MD Nov 13, 2017 10:34 am
== END 2017-11-13 10:16 | DRG 617 ==
LOC: EDUNIT# 13:25 → ER 13:27 → 4TH 16:00
PROVIDERS: ADMIT Family Medicine; ATTEND Family Medicine
PROC: 0Y6Y0Z0 Detachment at Left 5th Toe, Complete, Open Approach (ICD-10-PCS; 2017-11-11)
PROC: 0Y6H0Z1 Detachment at Right Lower Leg, High, Open Approach (ICD-10-PCS; principal; 2017-11-11 11:35)
DX: E11.69 Type 2 diabetes mellitus with other specified complication (principal); M86.171 Other acute osteomyelitis, right ankle and foot; E11.42 Type 2 diabetes mellitus with diabetic polyneuropathy; Z68.31 Body mass index [BMI] 31.0-31.9, adult; E11.618 Type 2 diabetes mellitus with other diabetic arthropathy; E66.9 Obesity, unspecified
CPT/HCPCS: 36415; 73620; 73720; 74022; 74176; 80048; 80053; 80202; 81000; 82150; 82962; 83036; 83605; 83690; 83735; 85007; 85025; 85027; 86141; 87040; 87070; 87077; 87186; 87205; 93005; 93041; 94664; 94760; 96361; 96374; 96375

== ENCOUNTER 2017-11-13 10:31 | Inpatient (IN) | payer BC, OTHER ==
[~2017-11-13] VITALS: Ht 200.7 cm; Wt 125.3 kg
[~2017-11-13 10:31] MED LIST changes: +AMOX1TAB12 PO; +ASCO500T6 PO; +ASPI325T32 PO; +ATOR40TA70 PO; +CALC-654 PO; +DOXY100C42 PO; +FLUC200T5 PO; +GABA-488 PO; +HYDR-3820 PO; +MAGN400T39 PO; +METF500T5 PO; +MULT-985 PO; +MULT1TAB69 PO; +POTA99TA21 PO; +SENN-20 PO
[2017-11-13] MEDS ORDERED: BISACODYL 10 MG SUPP (DULCOLAX) PR PRN (10:45)
[2017-11-13] MEDS ORDERED: ACETAMINOPHEN 500 MG TAB (TYLENOL) PO PRN (10:45)
--- OUTSIDE RECORDS SUMMARY | 2017-11-13 10:53 | XMS REPORT ---
Author Author NISHA MENDOSA [facility] Address [address] [place] [address] Care Team Providers Care Eeo Officer Name Role Phone NISHA MENDOSA Unavailable PROBLEMS Type Condition ICD9-CM Code [id number] Code Onset Dates Condition Status SNOMED Code Problem Diabetes E11.9 Active 518981297 Problem Prediabetes R73.03 Active 793185349 Problem DTAP TEST V06.1 Active ALLERGIES No Known Allergies ENCOUNTERS Encounter Location Date Diagnosis [place] [id number] [place] [address]40 Oct, [place] [id number] [place] [address] 08305- 6799 Jun, Diabetes E11.9 [place] [id number] [place] [address]01- 2897 May, Type 2 diabetes mellitus with hyperglycemia, without long- term current use of insulin E11.65 [facility] [address] [place] [id number] May, Foot swelling M79.89 and Type 2 diabetes mellitus with hyperglycemia, without long-term current use of insulin E11.65 [place] [address] [place] [address]1540- 1655 Feb, Diabetes E11.9 [place] [id number] [place] [address] 25204- 9628 September, Diabetes E11.9 and Screening cholesterol level Z13.220 [place] [id number] [place] [address] 83975- 5370 15 Sep, 2016 Diabetes E11.9 and Screening cholesterol level Z13.220 [place] [id number] [place] [address] 19502- 4496 Aug, [address]9 [facility] [address] [address] Jun, [facility] [address] [id number] Apr, Dental examination Z01.20 [facility] [address] [address] Dec, [address].9 [facility] [address] [facility] [id number] [address] Dec, Diabetes E[address].9 [facility] [id number] [place] [address] 15267- 7666 Dec, [facility] [address], [place] [address] Oct, Onychomycosis B35.1 and Toenail torn away S99.829A [facility] [address] [id number] Oct, Visit for dental examination Z01.20 [facility] [address], [place] [address] Oct, [facility] [address] September, Diabetes E11.9 [facility] [address], [place] [address] September, [facility] [address] September, Diabetes E11.9 [facility] [address], [place] [address] Jul, [facility] [address] Jun, [facility] [address] [place] [address] [place] [address] 08 Jun, 2015 [facility] [address] [id number] [place] [address] May, [facility] [address] [id number] [place] [address] May, [facility] [address] [id number] [place] [address] 5124 May, Diabetes E11.9 [facility] [address] [id number] [place] [address] 2860 Apr, Diabetes E11.9 [facility] [address] [id number] [place] [address] Aug, [facility] [address] [id number] [place] [address] 2991 Aug, [facility] [address] [id number] [place] [address] 8763 September, [facility] [address] [id number] [place] [address] 9342 September, [facility] [address] [id number] [place] [address] 8737 May, [facility] [address] [id number] [place] [address] 1755 May, [facility] [address] [id number] [place] [address]- 4220 Dec, [facility] [address] [id number] [place] [address]- 7112 Dec, [facility] [address] [id number] [place] [address]- 1172 Mar, [facility] [address] [id number] [place] [address]- 7866 Mar, [facility] [address] [id number] [place] [address] Mar, [facility] [id number] [address] Mar, [facility] [address] [address] Mar, [facility] [id number] [address] Mar, [facility] [address] [facility] [id number] [address] Mar, [facility] [id number] [address] Mar, [facility] [address] [address] Feb, [facility] [address], [place] [address] Feb, [facility] [id number], [place] [address] Jul, IMMUNIZATIONS No Known Immunizations SOCIAL HISTORY Never Assessed REASON FOR VISIT swollen foot x1 day Gabe GUPTA PLAN OF CARE Activity Details Follow Up [address] Barrientos Reason: VITAL SIGNS Height 77 in 2017-05-28 Weight 276 lbs 2017-05-28 Temperature 98.7 degrees Fahrenheit 2017-05-28 Heart Rate 84 bpm 2017-05-28 Respiratory Rate 18 2017-05-28 BMI 32.73 kg/m2 2017-05-28 Blood pressure systolic 120 mmHg 2017-05-28 Blood pressure diastolic 64 mmHg 2017-05-28 MEDICATIONS Medication Instructions Dosage Frequency Start Date End Date Duration Status Multi Vitamin Active Blood Glucose Test 1 subcutaneously Once a day as directed 24h September, Active Diabetic Shoes as directed Apr, Active Metformin HCl 500 mg Orally Twice a day 1 tablet with meals 12h Apr, Active RESULTS No Results PROCEDURES No Known procedures INSTRUCTIONS MEDICATIONS ADMINISTERED No Known Medications MEDICAL (GENERAL) HISTORY Type Description Date Medical History diabetes Type II Surgical History right pinky finger Surgical History right ankle repair Surgical History Left arm Surgical History left wrist Surgical History nasal repair surgery Surgical History tonsiillectomy Hospitalization History surgeries
--- OUTSIDE RECORDS SUMMARY | 2017-11-13 10:53 | XMS REPORT ---
Author Author NISHA MENDOSA [facility] Address [address] [place] [address] Care Team Providers Care Rn Surgery Name Role Phone NISHA MENDOSA Unavailable PROBLEMS Type Condition ICD9-CM Code [id number] Code Onset Dates Condition Status SNOMED Code Problem Diabetes E11.9 Active 992121184 Problem Prediabetes R73.03 Active 618969451 Problem DTAP TEST V06.1 Active ALLERGIES No Information ENCOUNTERS Encounter Location Date Diagnosis [place] [id number] [place] [address]408- [address]122 Oct, [place] [id number] [place] [address] 04140- 1569 Jun, Diabetes E11.9 [place] [id number] [place] [address] 12502- 7899 May, Type 2 diabetes mellitus with hyperglycemia, without long- term current use of insulin E11.65 [facility] [address] [place] [id number] May, Foot swelling M79.89 and Type 2 diabetes mellitus with hyperglycemia, without long-term current use of insulin E11.65 [place] [address] [place] [address] 02739- 7245 Feb, Diabetes E11.9 [place] [id number] [place] [address] 01042- 5148 September, Diabetes E11.9 and Screening cholesterol level Z13.220 [place] [id number] [place] [address] 52932- 8675 15 Sep, 2016 Diabetes E11.9 and Screening cholesterol level Z13.220 [place] [id number] [place] [address] 07779- 0436 Aug, Diabetes E11.9 [facility] [address], [place] [address] Jun, [facility] [address] [address] Apr, Dental examination Z01.20 [facility] [address], [place] [address] 8[address] Dec, Diabetes E11.9 [facility] [address] [place] [address] 08958- 1106 Dec, Diabetes E11.9 [facility] [id number] [place] [address] 98037- 0976 Dec, [facility] [address], [place] [address] Oct, Onychomycosis B35.1 and Toenail torn away S99.829A [facility] [address] [id number] Oct, Visit for dental examination Z01.20 [facility] [address], [place] [address] 7676 Oct, [facility] [address] [address] September, Diabetes E11.9 [facility] [address], [place] [address]- 0326 September, [facility] [address], [place] [address]- [address] September, Diabetes E11.9 [facility] [address], [place] [address]- 2256 Jul, [facility] [address], [place] [address]- 7498 Jun, [facility] [address] [place] [address] 62018- 3698 08 Jun, 2015 [facility] [address] [id number] [place] [address]- 6634 May, [facility] [address] [id number] [place] [address]- 4327 May, [facility] [address] [facility] [id number] [place] [address]- 0956 May, Diabetes E11.9 [facility] [address] [id number] [place] [address]- 7624 Apr, Diabetes E11.9 [facility] [address] [id number] [place] [address]- 9798 Aug, [facility] [address] [facility] [id number] [place] [address]- 6922 Aug, [facility] [id number] [place] [address] 5186 September, [facility] [address] [id number] [place] [address]- 6478 September, [facility] [address] [id number] [place] [address]- 9657 May, [facility] [id number] [place] [address]- 8588 May, [facility] [address] [id number] [place] [address]- 5383 Dec, [facility] [address] [id number] [place] [address]- 7684 Dec, [facility] [address] [id number] [place] [address]- 8245 Mar, [facility] [address] [id number] [place] [address]- 8816 Mar, [facility] [address] [id number] [place] [address]- 0929 Mar, [facility] [id number], [place] [address]- 2546 Mar, [facility] [address], [place] [address]- 8976 Mar, [facility] [address], [place] [address]- 2106 Mar, [facility] [address], [place] [address]- 2546 Mar, [facility] [id number], [place] [address]- 1111 Mar, [facility] [address], [place] [address]- 4556 Feb, [facility] [address], [place] [address]- 8586 Feb, [facility] [id number], [place] [address]- 3486 Jul, IMMUNIZATIONS No Known Immunizations SOCIAL HISTORY Never Assessed REASON FOR VISIT Lab (walk-in) PLAN OF CARE VITAL SIGNS MEDICATIONS Unknown Medications RESULTS No Results PROCEDURES Procedure Date Ordered Result Body Site GLYCATED HEMOGLOBIN TEST May 29, 2017 ASSAY OF BLOOD/URIC ACID May 29, 2017 VENIPUNCT, ROUTINE* May 29, 2017 INSTRUCTIONS MEDICATIONS ADMINISTERED No Known Medications MEDICAL (GENERAL) HISTORY Type Description Date Medical History diabetes Type II Surgical History right pinky finger Surgical History right ankle repair Surgical History Left arm Surgical History left wrist Surgical History nasal repair surgery Surgical History tonsiillectomy Hospitalization History surgeries
--- NOTE | 2017-11-13 11:07 | Physical Therapy Evaluation ---
PT Evaluation-General Medical Diagnosis Admission Date Nov 13, 2017 at 10:31 Medical Diagnosis: sepsis/cellulitis right foot/s/p BKA right Onset Date: Nov 05, 2017 Therapy Diagnosis Therapy Diagnosis: impaired mobility, strength, endurance, ROM Height/Weight Height (Feet): 6 Height (Inches): 7.00 Weight (Pounds): 276 Weight (Ounces): 5.0 Weight Bear Status Right Lower Extremity: Right Non Weight Bearing Left Lower Extremity: Left Weight Bearing/Tolerated LLE WEIGHT BEAR ONLY WITH SURGICAL SHOE ON AND ONLY FOR TRANSFERS Referral Physician: Kamran Reason for Referral: Evaluation/Treatment Medical History Pertinent Medical History: DM, Neuropathy Additional Medical History nonhealing DM wound right foot and left foot. Current History s/p right BKA 11/10/17 and left 5th "ray" resection Reviewed History: Yes Social History Home: Single Level Current Living Status: Significant Other Entry Into Home: Level Entry Prior/Core FIM Prior Level of Function Functional [place] Measure 0=Not Assessed/NA 4=Minimal Assistance 1=Total Assistance 5=Supervision or Setup 2=Maximal Assistance 6=Modified [place] 3=Moderate Assistance 7=Complete [place] Bed Mobility: 7 Transfers (B,C,W/C) (FIM): 7 Gait: 7 PT Evaluation-Current Subjective Patient in bed pre tx, agrees to PT, has pain of 10/10 in right residual limb and left foot. Pt/Family Goals to be independent at home Objective Patient Orientation: Normal For Age ROM/Strength ROM Lower Extremities WNL on left, right knee flexion 45 degrees, extension +10 degrees Strenght Lower Extremities 4+/5 gross left lower extremity, ankle not tested, NT in right lower extremity Neuromuscular (Tone, Coordination, Reflexes) NT Sensory Vision: Functional Hearing: Functional Sensation Right Lower Extremit: Impaired Sensation Left Lower Extremity: Impaired Sensation Lower Extremities Patient has phantom limb pain and sensation on the right side. Transfers Functional [place] Measure 0=Not Assessed/NA 4=Minimal Assistance 1=Total Assistance 5=Supervision or Setup 2=Maximal Assistance 6=Modified [place] 3=Moderate Assistance 7=Complete IndependenceIRFPAI Quality Coding Scale 6 Independent with activity with or without an assistive device 5 Patient requires set up or clean up by helper. Patient completes activity by themselves 4 Supervision or touching assist (CGA). [place] provide cues , steadying assist 3 The helper provides less than half the effort to complete the activity 2 The helper provides more than half the effort to complete the activity 1 Dependent. The helper does all the effort to complete an activity 7 Patient refused to complete or attempt activity 9 The patient did not perform the activity before the current illness or injury 88 Not attempted due to Medical conditions or safety concerns Transfers (B, C, W/C) (FIM): 5 Scootin Rollin Roll Left to Right (QC): 4 Supine to/from Sit: 5 bed t/f WC(FIM only if WC use): 4 Sit to Lying (QC): 4 Lying to Sitting/Side of Bed(Q: 4 Chair/Syj-ai-Xehqy Xfer(QC): 4 Car Transfer (QC): 4 Patient performs bed mobility, supine to sit and sliding board transfers with SBA. Car transfer with SBA. Patient cannot stand because he is NWB on the left foot. His weight bearing status is unclear at this time even with the note that Dr. Vargas wrote. It will be clarified but until that time he will be treated as NWB on the left leg. Gait Does the Patient Walk?: No and Walking Goal NOT indicated Wheelchair Training Does the Pt Use a Wheelchair?: Yes Wheelchair (FIM): 5 Distance: 300'x2 Wheelchair Level of Assist: 5 Wheel 50 ft with 2 turns (QC): 4 Wheel 150 ft (QC): 4 Type of Wheelchair: Manual Patient can propel a manual wheelchair 300' with SBA. He uses both arms to propel. Stairs If not tested on admit;explain Patient is NWB on left leg and the right has had a BKA. Balance Sitting Static: Normal Sitting Dynamic: Normal Treatment supine exercises x15, right lower extremity (QS, GS, SLR, hip abd, SAQ), left lower extremity (QS, GS, SAQ, HS, hip abd, AP) Patient was also placed on the bedside commode over the toilet with SBA using a sliding board, he was able to get his pants down with sitting and shifting weight back and forth while getting pants down without assist. He was instructed to use nurse call when he was done. Assessment/Needs Patient has impaired mobility, strength, endurance, ROM post right BKA and left foot surgery. Rehab Potential: Fair PT Short Term Goals Short Term Goals Time Frame: Nov 20, 2017 Transfers (B,C,W/C) (FIM): 6 Wheelchair (FIM): 6 Wheelchair Distance: 300' PT Correction Goals Paper Steamer Goals PT Correction Goals Time Frame: Dec 04, 2017 Transfers (B,C,W/C) (FIM): 6 Sit to Lying (QC): 6 Lying-Sitting on Side/Bed(QC): 6 Sit to Stand (QC): 6 Rollin Roll Left to Right (QC): 6 Chair/Agc-yp-Lzelf Xfer(QC): 6 Car Transfer (QC): 6 Wheelchair (FIM): 6 Distance: 400' Wheelchair Level of Assist: 6 Wheel 50 feet with 2 turns (QC: 6 PT Plan Problem List Problem List: Activity Tolerance, Functional Strength, Safety, Balance, Transfer, Bed Mobility, ROM Treatment/Plan Treatment Plan: Continue Plan of Care Treatment Plan: Bed Mobility, Education, Functional Activity Cesar, Functional Strength, Group Therapy, Safety, Therapeutic Exercise, Transfers Treatment Duration: Dec 04, 2017 Frequency: At least 5 of 7 days/Wk (IRF) Estimated Hrs Per Day: 1.5 hours per day Patient and/or Family Agrees t: Yes Safety Risks/Education Patient Education: Transfer Techniques, Reviewed Precautions, Correct Positioning, W/C Management, Disease Process, Safety Issues Teaching Recipient: Patient Teaching Methods: Demonstration, Discussion Response to Teaching: Reinforcement Needed Discharge Recommendations Plan Patient will perform bed mobility and transfer training, balance and endurance training, functional strengthening, wheelchair mobility training, and education , to improve functional mobility and independence at home. Therapy D/C Recommendations: Home w/ Family Support Time/GCodes Time In: 1007 Time Out: 1107 Total Billed Treatment Time: 60 Total Billed Treatment 1 visit [facility] 30' FA 15' [facility] 15' LEX SANTOS PT Nov 13, 2017 11:07
[2017-11-13] MEDS: inSUlin ASPART (NovoLOG) 1 UNIT/0.01 ML (CHARGE PER UNIT) SC SCH ×3 (11:56→21:00)
--- NOTE | 2017-11-13 13:27 | PM&R Post Admission Assessment ---
Post Admission Physician Asses Date seen by provider: Nov 13, 2017 Time seen by provider: 13:30 Admisison Dx: (1) Amputation of right lower extremity below knee Status: Acute The preadmission screen agrees with the post admission assessment that the patient is a good candidate for inpatient rehabilitation. The patient will have a comprehensive program of inpatient rehabilitation with a goal of maximizing level of functional independence prior to discharge home with SO and C. The patient will have PT/OT ninety minutes per day, each discipline, five days a week for 2 weeks for gait, strengthening, conditioning, balance, ADLs, any patient/family/caregiver training as necessary. Speech therapy to do cognitive assessment and treat as indicated. Rehabilitation nursing to assist with bowel, bladder, skin, wound care, medication administration, pain management. Crap Shooter to assist with discharge planning, community reentry. Lovenox subcut for DVT prophylaxis. He appears to be well motivated to participate in three hours of therapy a day. He should be able to tolerate three hours of therapy a day from a medical and surgical standpoint. He should benefit from the three hours of therapy a day. He has a reasonable discharge plan, reasonable discharge rehabilitation goals and a supportive family. He has various comorbidities that need to be closely monitored with medications and treatments adjusted on a daily basis as needed. These include: DM Postop anemia Postop constipation Diabetic Peripheral neuropathy IGC 05.4 Etiologic DX Rt BKA Barriers to discharge for this patient who had been independent prior to this are for him to be modified independent to supervision for ADLs and mobility skills prior to discharge home with SO and C, so as to lessen the burden of the caregivers. Risks for this patient include: 1. Fall 2. Fracture 3. DVT 4. Pulmonary embolism 5. Wound infection 6. Skin breakdown 7. Contractures 8. Poorly controlled pain 9. Urinary retention 10. UTI 11. Respiratory infection 12. Aspiration 13. Poorly controlled DM Estimated Length of Stay: 14 days Prognosis: Rehab prognosis appears good for goal of discharge home with SO and HHC modified independent to supervision for ADLs and mobility skills at the w/c level of function. General: Alert, Oriented X3, Cooperative, No Acute Distress HEENT: Atraumatic, PERRLA, EOMI, Mucous Memb Moist/[place] Neck: Supple, No JVD Lungs: Clear to Auscultation Heart: Regular Rate Abdomen: Normal Bowel Sounds, Soft, No Tenderness, Other (RT BKA floyd wrapped Left foot in kerlex and dressing) Neuro: Other (Good strength BU LIMBS Fair +good- At hips) ANKUR WALLACE MD Nov 13, 2017 13:27
--- NOTE | 2017-11-13 13:47 | Physical Therapy Daily Note ---
PT Daily Note-Current Subjective Patient in bed pre tx, agrees to PT, has pain of 8-9/10 in right residual limb and left foot. Appearance Patient BTB post tx with nurse call, phone, tray, all needs met. Mental Status Patient Orientation: Normal For Age Transfers Functional [place] Measure 0=Not Assessed/NA 4=Minimal Assistance 1=Total Assistance 5=Supervision or Setup 2=Maximal Assistance 6=Modified [place] 3=Moderate Assistance 7=Complete IndependenceIRFPAI Quality Coding Scale 6 Independent with activity with or without an assistive device 5 Patient requires set up or clean up by helper. Patient completes activity by themselves 4 Supervision or touching assist (CGA). [place] provide cues , steadying assist 3 The helper provides less than half the effort to complete the activity 2 The helper provides more than half the effort to complete the activity 1 Dependent. The helper does all the effort to complete an activity 7 Patient refused to complete or attempt activity 9 The patient did not perform the activity before the current illness or injury 88 Not attempted due to Medical conditions or safety concerns Transfers (B, C, W/C) (FIM): 5 Scootin Rollin Supine to/from Sit: 5 Bed to/from Chair: 5 Patient does a sliding board transfer with SBA. Weight Bearing Right Lower Extremity: Right Non Weight Bearing Left Lower Extremity: Left Weight Bearing/Tolerated LLE WEIGHT BEAR ONLY WITH SURGICAL SHOE ON AND ONLY FOR TRANSFERS Wheelchair Training Does the Pt Use a Wheelchair?: Yes Wheelchair (FIM): 5 Distance: 150'x2 Type of Wheelchair: Manual Exercises NuStep Minutes: 15 NuStep Workload: 1 (No resistance in order to comply with his weight bearing status. Just ROM for left leg and arms.) Treatments wheelchair mobility, ROM, transfers Assessment Current Status: Fair Progress PT Short Term Goals Short Term Goals Time Frame: Nov 20, 2017 Transfers (B,C,W/C) (FIM): 6 Wheelchair (FIM): 6 Wheelchair Distance: 300' PT Research Computing Specialist Goals Research Computing Specialist Goals PT Research Computing Specialist Goals Time Frame: Dec 04, 2017 Transfers (B,C,W/C) (FIM): 6 Sit to Lying (QC): 6 Lying-Sitting on Side/Bed(QC): 6 Sit to Stand (QC): 6 Rollin Roll Left to Right (QC): 6 Chair/Clb-og-Teckb Xfer(QC): 6 Car Transfer (QC): 6 Wheelchair (FIM): 6 Distance: 400' Wheelchair Level of Assist: 6 Wheel 50 feet with 2 turns (QC: 6 PT Plan Problem List Problem List: Activity Tolerance, Functional Strength, Safety, Balance, Gait, Transfer Treatment/Plan Treatment Plan: Continue Plan of Care Treatment Plan: Bed Mobility, Education, Functional Activity Cesar, Functional Strength, Group Therapy, Safety, Therapeutic Exercise, Transfers Treatment Duration: Dec 04, 2017 Frequency: At least 5 of 7 days/Wk (IRF) Estimated Hrs Per Day: 1.5 hours per day Patient and/or Family Agrees t: Yes Safety Risks/Education Patient Education: Transfer Techniques, Correct Positioning, W/C Management, Safety Issues Teaching Recipient: Patient Teaching Methods: Demonstration, Discussion Response to Teaching: Reinforcement Needed Time/GCodes Time In: 1305 Time Out: 1335 Total Billed Treatment Time: 30 Total Billed Treatment 1 visit [facility] 15' EX 15' LEX SANTOS PT Nov 13, 2017 13:47
[2017-11-13] MEDS: ENOXAPARIN 40 MG/0.4 ML (LOVENOX) SYR SC SCH (14:01)
--- NOTE | 2017-11-13 14:01 | Occupational Therapy Eval ---
OT Evaluation-General/PLF Medical Diagnosis Admission Date Nov 13, 2017 at 10:31 Medical Diagnosis: sepsis/cellulitis right foot/s/p BKA right Onset Date: Nov 05, 2017 Therapy Diagnosis Therapy Diagnosis: decr self care, decr funct mobility, decr act ruperto, weakness Height/Weight Height (Feet): 6 Height (Inches): 7.00 Weight (Pounds): 276 Weight (Ounces): 5.0 Precautions Precautions/Isolations: Standard Precautions Weight Bear Status Weight Bearing Restriction: Non Weight Bearing Location Restriction: L LE Can rest foot on floor for minimal weight bearing but not stand for pivot transfers or ADLs Referral Physician: Kamran Medical History Pertinent Medical History: DM, Neuropathy Additional Medical History Obesity, osteomyelitis Current History Had R BKA 11-10-17, 5th toe resection L foot 11-11-17 Reviewed History: Yes Social History Home: Single Level Current Living Status: Significant Other Entry Into Home: Level Entry ADL-Prior Level of Function ADL PLOF Comments Pt reported that he was previously able to manage basic self care needs. 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 Accessible shower, with grab bars OT Current Status Subjective Pt seen in room, up in bathroom, agreeable to OT. Pain rated "on fire" for R LE , but it dropped back to zero when he rested leg in bed. Appearance Alert, cooperative Mental Status/Objective Patient Orientation: Person, Place, Time, Situation Attachments: Saline Lock Current Glasses/Contacts: No Hearing Aids: No Dentures/Partials: No Hand Dominance: Right Upper Extremity ROM Grossly WFL bilat. Pt reported occasional L shoulder pain with movement Upper Extremity Strength Grossly 4+/5 bilat Edema: No UE edema noted ADL-Treatment ADL-Current Pt was able to manage clothing and hygiene after toileting and transferred back to w/c, using sliding board. Recommended to him that he consistently call for help with transfers so that he doesn't fall on R surgical site. Pt transferred back into bed with SBA, sliding board, with help to manage arm rest. Functional [place] Measure 0=Not Assessed/NA 4=Minimal Assistance 1=Total Assistance 5=Supervision or Setup 2=Maximal Assistance 6=Modified [place] 3=Moderate Assistance 7=Complete IndependenceIRFPAI Quality Coding Scale 6 Independent with activity with or without an assistive device 5 Patient requires set up or clean up by helper. Patient completes activity by themselves 4 Supervision or touching assist (CGA). [place] provide cues , steadying assist 3 The helper provides less than half the effort to complete the activity 2 The helper provides more than half the effort to complete the activity 1 Dependent. The helper does all the effort to complete an activity 7 Patient refused to complete or attempt activity 9 The patient did not perform the activity before the current illness or injury 88 Not attempted due to Medical conditions or safety concerns Eating (FIM): 7 (No problems opening packages, feeding himself) Eating (QC): 6 Toileting (FIM): 5 (SBA, managing clothing and hygiene, on BSC over toilet) Toileting Hygiene (QC): 4 Transfers (B, C, W/C) (FIM): 5 (SBA, w/c to bed, using sliding board. Help with arm rest and board placement) Toilet/Commode Transfer (FIM): 5 (SBA, sliding board transfer to BSC over toilet, grab bars, w/c) Toilet Transfer (QC): 4 Education OT Patient Education: Modified ADL techniques, Purpose of tx/functional activities, Rehab process, Safety issues, Transfer techniques Teaching Recipient: Patient Teaching Methods: Discussion Response to Teaching: Verbalize Understanding, Reinforcement Needed OT Short Term Goals Short Term Goals Time Frame: Nov 20, 2017 Grooming(FIM): 6 Toileting(FIM): 6 Toilet/Commode Transfer(FIM): 6 Additional Short Term Goals: 1-Demonstrate ADL Tasks, 2-Verbalize Understanding , 3-ImproveStrength/Cesar 1=Demonstrate adherence to instructed precautions during ADL tasks. 2=Patient will verbalize/demonstrate understanding of assistive devices/ modifications for ADL. 3=Patient will improve strength/tolerance for activity to enable patient to perform ADL's. OT Prison Goals Giver Goals Time Frame: Dec 04, 2017 Eating (FIM): 7 Eating (QC): 6 Groomin Oral Hygiene (QC): 6 Bathing(FIM): 6 Shower/Bathe Self (QC): 6 Upper Body Dressing(FIM): 6 Upper Body Dressing (QC): 6 Lower Body Dressing(FIM): 6 Lower Body Dressing (QC): 6 On/Off Footwear (QC): 6 Toileting(FIM): 6 Toileting Hygiene (QC): 6 Toilet/Commode Transfer(FIM): 6 Toilet/Commode Transfer (QC): 6 Shower Transfer(FIM): 6 Additional Goals: 1-Demonstrate ADL Tasks, 2-Verbalize Understanding, 3- ImproveStrength/Cesar 1=Demonstrate adherence to instructed precautions during ADL tasks. 2=Patient will verbalize/demonstrate understanding of assistive devices/ modifications for ADL. 3=Patient will improve strength/tolerance for activity to enable patient to perform ADL's. OT Education/Plan Problem List/Assessment Assessment: Decreased Activ Tolerance, Decreased UE Strength, Dependent Transfers, Impaired Funct Balance, Impaired Self-Care Skills Pt would benefit from skilled OT to increase his independence in basic self care to allow him to safely return home Discharge Recommendations Plan/Recommendations: Continue POC Treatment Plan/Plan of Care Treatment,Training & Education: Yes Patient would benefit from OT for education, treatment and training to promote independence in ADL's, mobility, safety and/or upper extremity function for ADL' s. Plan of Care: ADL Retraining, Functional Mobility, Group Exercise/Act as Ind ( education, exercise, functional activity, activity tolerance, socialization) Treatment Duration: Dec 04, 2017 Frequency: At least 5 of 7 days/Wk (IRF) Estimated Hrs Per Day: 1.5 hours per day Agreement: Yes Rehab Potential: Good Time/GCodes Start Time: 11:10 Stop Time: 11:50 Total Time Billed (hr/min): 40 Billed Treatment Time visit, 15 minutes evaluation moderate intensity, 25 minutes ADL REED ODOM OT Nov 13, 2017 14:01
--- NOTE | 2017-11-13 14:05 | HISTORY AND PHYSICAL ---
DATE OF SERVICE: 11/13/2017 CHIEF COMPLAINT: Difficulty with mobility. He had an amputation. 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 The patient had been followed in the wound care clinic as well as by Dr. Price podiatry. The patient went on to have a below the knee amputation of the right leg at [facility] on 11/10/2017 for osteomyelitis of the right foot as well as neuropathic right foot with Charcot foot. The patient has a strap on right leg, right residual limb, he is on pain meds. The patient has also had debridement of the fifth left metatarsal head on 10/26/2017 with culture showing Corynebacterium striatum and acinetobacter. The patient completed a course of Zyvox and Bactrim and is currently on Augmentin. The patient is a diabetic on metformin. He is on Lovenox subq for DVT prophylaxis. He is being followed by Dr. Costa orthopedics as well as Dr. Vargas podiatry and [facility] physicians. He is utilizing hydrocodone/APAP for pain control. He is to bear weight on his left heel only to assist with stand pivot transfers. He is nonambulatory at this point. He requires assistance for wheelchair propulsion. He has limited endurance, fatigues easily. He is complaining of some phantom limb pain on the right. He reports intact sensation to touch in the left toe. He has Michael wrap. He has a Kerlix and dressing over the left foot. He requires assistance for his ADLs, transfers and bed mobility at this time.He is nonambulatory. He is Min assist for stand pivot transfers.He is Independent for eating and min assist for toileting hygiene and trnsfers PAST MEDICAL HISTORY: Type 2 diabetes mellitus, obesity, diabetic peripheral neuropathy, postop anemia, hemoglobin 10.5 on 11/11/2017. PAST SURGICAL HISTORY: As per above. ALLERGIES: No known medication allergies. FAMILY HISTORY: Noncontributory. SOCIAL HISTORY: He is single and lives in [place], [place] in his own house. He is . He has a significant other who lives with him. 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 REVIEW OF SYSTEMS: A 10-point review of systems significant for phantom limb pain, peripheral neuropathy, constipation. MEDICATIONS: ASA 325 mg p.o. daily, vitamin C 500 mg p.o. daily, calcium carbonate with vitamin D 600 mg p.o. daily, mag ox 400 mg p.o. daily, multivitamins with minerals one tablet p.o. daily, Gabapentin 300 mg p.o. b.i.d., Senokot-S 1 tablet b.i.d., Lipitor 40 mg p.o. each day at bedtime, MiraLax 17 grams p.o. b.i.d., Augmentin 875 mg p.o. b.i.d., metformin 500 mg p.o. b.i.d., Lovenox subq 40 mg daily, Tylenol 1000 mg p.o. q.6 hours p.r.n. mild pain or fever, Dulcolax 10 mg per rectum daily p.r.n. constipation, ibuprofen 800 mg p.o. q.6 hours p.r.n. fever or pain, tramadol 50 mg p.o. q.6 hours p.r.n. moderate pain. PHYSICAL EXAMINATION: GENERAL: Significant for a male appearing his stated age, lying in bed, in no acute distress, appearing his stated age. VITAL SIGNS: Within normal limits. He is afebrile. HEENT: Vision, speech, hearing grossly intact. No oral lesion is noted. NECK: Supple without mass. HEART: Regular rhythm. CHEST: Clear. ABDOMEN: Soft, nontender, bowel sounds present. EXTREMITIES: The patient has Kerlix and dressing over the left foot and ankle. He has Michael wrap over the residual right BKA. MUSCULOSKELETAL: He has functional active range of motion and strength both upper limbs. NEUROLOGIC: Sensation impaired to touch in left lower limb. Cognition appears grossly intact. Strength, he has 4+/5 strength both upper limbs.Strength Left lower limb 4+/5. Rt hip flexor 3+/5. Rt Knee flexion 45 degrees/Extension 10 degrees. He is able to extend and flex his right residual BKA.He reports both phantom pain and senstation in the rt residual limb. IMPRESSION: 1. Ambulatory dysfunction secondary to complications of diabetes type 2 with diabetic foot ulcer and osteomyelitis with resulting right BKA. 2. Status post debridement of the fifth left metatarsal head on 10/26/2017 on antibiotics, may touch WT bear with surgical shoe on for transfers. 3. Type 2 diabetes mellitus with complications. 4. Postop constipation. 5. Postop anemia. 6. Obesity. 7. Diabetic peripheral neuropathy. 8. Postop DVT prophylaxis, on Lovenox subq. PLAN: The patient will have a comprehensive program of inpatient amputee rehabilitation with goal of maximizing level of functional independence prior to discharge home with significant other and home health care. Transfer to rehab was approved by his commercial insurance [employer]. The patient will have PT, OT 90 minutes per day each discipline, 5 days a week for 14 days with goal to maximizing level of functional independence for ADLs and mobility skills at the wheelchair level of function due to nonweightbearing status right lower limb and left lower limb to be only used for touch for transfers with Surgical shoe. Speech therapy to do cognitive assessment and treat as indicated. Rehabilitation nursing assist with bowel, bladder, skin, wound care, medication administration, pain management treatment of postop constipation. health services administrator assist with discharge planning, community reentry. Follow up with Dr. Vieyra and Dr. Costa and [facility] physician as per their schedule. Continue current medications. Continue with Lovenox subcutaneously for DVT prophylaxis. ESTIMATED LENGTH OF STAY: Two weeks. PROGNOSIS: Rehab prognosis appears good for the above goals in mind. DIET: Carb consistent. CODE STATUS: Full code. Job ID: [id number] DocumentID: [id number] Dictated Date: 11/13/2017 13:18:42 Vice President And Portfolio Manager Date: 11/13/2017 14:04:30 Dictated By: ANKUR WALLACE MD [facility]
[2017-11-13] MEDS: HYDROcodone/APAP 10 MG/325 MG (LORTAB) TAB PO PRN ×2 (14:47→20:32)
--- NOTE | 2017-11-13 14:57 | Occupational Ther Daily Note ---
OT Current Status-Daily Note Subjective Pt alert, lying in bed. Pt agrees to therapy. Pt c/o headache and pain with R LE. Reported to nrsg. Mental Status/Objective Patient Orientation: Person, Place, Time, Situation Functional [place] Measure 0=Not Assessed/NA 4=Minimal Assistance 1=Total Assistance 5=Supervision or Setup 2=Maximal Assistance 6=Modified [place] 3=Moderate Assistance 7=Complete [place] Attachments: IV ADL-Treatment Functional [place] Measure 0=Not Assessed/NA 4=Minimal Assistance 1=Total Assistance 5=Supervision or Setup 2=Maximal Assistance 6=Modified [place] 3=Moderate Assistance 7=Complete IndependenceIRFPAI Quality Coding Scale 6 Independent with activity with or without an assistive device 5 Patient requires set up or clean up by helper. Patient completes activity by themselves 4 Supervision or touching assist (CGA). [place] provide cues , steadying assist 3 The helper provides less than half the effort to complete the activity 2 The helper provides more than half the effort to complete the activity 1 Dependent. The helper does all the effort to complete an activity 7 Patient refused to complete or attempt activity 9 The patient did not perform the activity before the current illness or injury 88 Not attempted due to Medical conditions or safety concerns Grooming (FIM): 6 (Sitting at sink, pt able to complete own grooming.) Oral Hygiene (QC): 6 Bathing (FIM): 5 (Supervision for safety. Using grabbar, hand held shower and shower bench pt able to complete bathing, rinsing and drying. Leans side to side to cleanse buttocks. R stump and L foot covered.) Bathing Location: L Arm, R Arm, L Upper Leg, R Upper Leg, L Lower Leg ( including foot) (able to reach to foot though due to wrapping unable to wash), Chest, Abdomen, Buttocks, Perineal Area Shower/Bathe Self (QC): 4 Upper Body (FIM): 5 (After set up, pt able to complete upper body dressing.) Upper Body Dressing (QC): 5 Lower Body Dressing (FIM): 5 (After set up, pt able to complete. Leans side to side in sitting to hike pants over hips. Supervision for safety.) Lower Body Dressing (QC): 4 Shower Transfer(FIM): 5 (SBA for safety with sliding board transfer. Assist to position w/c. Pt positions sliding board.) OT Short Term Goals Short Term Goals Time Frame: Nov 20, 2017 Grooming(FIM): 6 Toileting(FIM): 6 Toilet/Commode Transfer(FIM): 6 Additional Short Term Goals: 1-Demonstrate ADL Tasks, 2-Verbalize Understanding , 3-ImproveStrength/Cesar 1=Demonstrate adherence to instructed precautions during ADL tasks. 2=Patient will verbalize/demonstrate understanding of assistive devices/ modifications for ADL. 3=Patient will improve strength/tolerance for activity to enable patient to perform ADL's. OT Can Filling And Closing Machine Tender Goals Shelter Goals Time Frame: Dec 04, 2017 Eating (FIM): 7 Eating (QC): 6 Groomin Oral Hygiene (QC): 6 Bathing(FIM): 6 Shower/Bathe Self (QC): 6 Upper Body Dressing(FIM): 6 Upper Body Dressing (QC): 6 Lower Body Dressing(FIM): 6 Lower Body Dressing (QC): 6 On/Off Footwear (QC): 6 Toileting(FIM): 6 Toileting Hygiene (QC): 6 Toilet/Commode Transfer(FIM): 6 Toilet/Commode Transfer (QC): 6 Shower Transfer(FIM): 6 Additional Goals: 1-Demonstrate ADL Tasks, 2-Verbalize Understanding, 3- ImproveStrength/Cesar 1=Demonstrate adherence to instructed precautions during ADL tasks. 2=Patient will verbalize/demonstrate understanding of assistive devices/ modifications for ADL. 3=Patient will improve strength/tolerance for activity to enable patient to perform ADL's. OT Education/Plan Problem List/Assessment Pt would benefit from skilled OT to increase his independence in basic self care to allow him to safely return home Discharge Recommendations Plan/Recommendations: Continue POC Treatment Plan/Plan of Care Patient would benefit from OT for education, treatment and training to promote independence in ADL's, mobility, safety and/or upper extremity function for ADL' s. Plan of Care: ADL Retraining, Functional Mobility, Group Exercise/Act as Ind ( education, exercise, functional activity, activity tolerance, socialization) Treatment Duration: Dec 04, 2017 Frequency: At least 5 of 7 days/Wk (IRF) Estimated Hrs Per Day: 1.5 hours per day Agreement: Yes Rehab Potential: Good Time/GCodes Start Time: 13:45 Stop Time: 14:35 Total Time Billed (hr/min): 50 Billed Treatment Time 1 visit-ADL 3 (50 min) SOO SCHRADER Nov 13, 2017 14:57
--- NOTE | 2017-11-13 15:03 | ST Cognitive Linguistic Eval ---
Speech Evaluation-General Medical Diagnosis sepsis/cellulitis right foot/s/p BKA right Onset Date: Nov 05, 2017 Therapy Diagnosis Therapy Diagnosis: Cognitive Linguistic Skills WNL Precautions Precautions/Isolations: Standard Precautions Referral Referring Physician: Dr. Rashawn Andrew Reason for Referral: Evaluation/Treatment Cognitive Evaluation Medical History Pertinent Medical History: DM, Neuropathy Reviewed History: Yes Social History Current Living Status: Significant Other Speech PLF-Current Status Prior Level of Function The patient denied prior difficulties with speech, language, or cognition. Subjective The patient was laying in bed upon entrance. The patient greeted the clinician and was agreeable to participation in the cognitive evaluation. Language Eval: Auditory Comprehends Simple Yes/No Ques: Functional Indent/Objects Multiple Toney: Functional Ident/Pics in Multiple Toney: Functional Follows 1-Step Commands: Functional Follows Complex Directions: Functional Follows General Conversations: Functional Language Eval: Verbal Language Completes Spontaneous Greeting: Functional Produces Auto, Serial Info: Functional Imitates Simple Words/Phrases: Functional Word Finding: Functional Requests Basic Needs: Functional States Basic Personal Info: Functional Expresses Complex Ideas: Functional Cognitive Patient Orientation The patient was independently oriented to self, location, month, day of week, date, and year. Objective Cognitive Domain Attention: WNL Memory: WNL Problem Solving: Functional Objective Impression The patient demonstrated cognitive linguistic skills within normal limits. Communication/Social Cognition Comprehension: 7 Expression: 7 Social Interaction: 7 Problem Solvin Memory: 7 Speech Patient Assess Expression of Ideas/Wants: Expression (4) Understanding Verbal Content: Understands (4) Brief Interview-Mental Status: Yes Repetition of Three Words: Three (3) Temporal Orientation: Year: Correct (3) Temporal Orientation: Month: Accurate within 5 days(2) Temporal Orientation: Day: Correct (1) Recall : Wear to say "Sock": Yes,after cueing (1) Recall : Color: No, could not recall (0) Recall : Bed: Yes,after cueing (1) Speech-Plan Treatment Plan Speech Therapy Treatment Plan: Discontinue ST Evaluation only. Frequency: Modified Program (IRF) (No ST warranted.) Estimated Hrs Per Day: Other (No ST warranted.) Rehab Potential: Good Safety Risks/Education Teaching Recipient: Patient Teaching Methods: Discussion Response to Teaching: Verbalize Understanding Education Topics Provided: Results, Recommendations, Plan of Care Time Speech Therapy Time In: 14:40 Speech Therapy Time Out: 14:55 Total Billed Time: 15 Billed Treatment Time 1, TRINA CARLISLE Nov 13, 2017 15:03
[2017-11-13] MEDS: metFORMIN 500 MG (GLUCOPHAGE) TAB PO SCH (16:38)
[2017-11-13] MEDS: AUGMENTIN 875 MG TAB (AMOXICILLIN/CLAVULANATE) PO SCH (16:38)
[2017-11-13 17:15] VITALS: BP 115/72
[2017-11-13] MEDS: POLYETHYLENE GLYCOL 17 GM (MIRALAX) PACK PO SCH (20:30)
[2017-11-13] MEDS: ATORVASTATIN 40 MG (LIPITOR) TABLET PO SCH (20:30)
[2017-11-13] MEDS: SENNA W/DOCUSATE (SENOKOT S) TABLET PO SCH (20:31)
[2017-11-13] MEDS: GABAPENTIN 300 MG (NEURONTIN) CAP PO SCH (20:32)
[2017-11-13] MEDS: IBUPROFEN 800 MG (MOTRIN) TAB PO PRN (23:44)
[2017-11-14] MEDS: HYDROcodone/APAP 10 MG/325 MG (LORTAB) TAB PO PRN ×2 (02:47→20:31)
[2017-11-14 06:00] VITALS: BP 126/79
[2017-11-14] MEDS: inSUlin ASPART (NovoLOG) 1 UNIT/0.01 ML (CHARGE PER UNIT) SC SCH ×4 (06:22→20:36)
[2017-11-14] MEDS: metFORMIN 500 MG (GLUCOPHAGE) TAB PO SCH ×2 (06:23→17:10)
[2017-11-14] MEDS: AUGMENTIN 875 MG TAB (AMOXICILLIN/CLAVULANATE) PO SCH ×2 (06:23→17:10)
[2017-11-14] MEDS: ASCORBIC ACID (VIT C) 500 MG TABLET PO SCH (06:23)
[2017-11-14] MEDS: MAGNESIUM OXIDE (MAG-OX)400 MG TAB PO SCH (06:23)
[2017-11-14] MEDS: MULTIVIT W/MINERALS TAB (THERAGRAN M) PO SCH (06:23)
[2017-11-14] MEDS: CALCIUM CARB + VIT D 600 MG (CALCARB + D) TAB PO SCH (06:24)
--- NOTE | 2017-11-14 07:42 | PM & R (SOAP) Progress Note ---
Subjective This was a face to face visit with the patient. Date Seen by Provider: Nov 14, 2017 Time Seen by Provider: 07:20 Subjective/Events-last exam Patient was seen in his room this AM Adjusting well to unit Patient c/o constipation.Discussed with RN last evening.So far just gas with Miralax- Patient willing to try Suppository if needed.Patient min assist for transfers NWB RLE and with surgical shoe on left just for transfers Review of Systems Gastrointestinal: Constipation Musculoskeletal: leg pain, foot pain Objective Physician Exam Last Set of Vital Signs Vital Signs Date Time Temp Pulse Resp B/P (MAP) Pulse Ox O2 Delivery O2 Flow Rate FiO2 11/14/17 06:00 97.1 71 20 126/79 (95) 94 Room Air Capillary Refill : I&O Intake and Output 11/14/17 00:00 Intake Total 690 ml Output Total 600 ml Balance 90 ml Intake Oral 690 ml Output Urine Total 600 ml Daily Weight Change No General: Alert, Oriented X3, Cooperative, No Acute Distress HEENT: Atraumatic, PERRLA, EOMI, Mucous Memb Moist/[place] Neck: Supple, No JVD Lungs: Clear to Auscultation Heart: Regular Rate Abdomen: Normal Bowel Sounds, Soft, No Tenderness, Other (RT BKA floyd wrapped Left foot in kerlex and dressing) Neuro: Other (Good strength BU LIMBS Fair +good- At hips) Results Lab Data Laboratory Tests 11/13/17 16:04: Glucometer 102 11/13/17 21:32: Glucometer 129H 11/14/17 06:20: Glucometer 109 Assessment/Plan Assessment and Plan 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
[2017-11-14] MEDS: POLYETHYLENE GLYCOL 17 GM (MIRALAX) PACK PO SCH ×2 (08:08→20:31)
[2017-11-14] MEDS: ASPIRIN E.C. 325 MG (ECOTRIN) TABLET PO SCH (08:08)
[2017-11-14] MEDS: GABAPENTIN 300 MG (NEURONTIN) CAP PO SCH ×2 (08:08→20:31)
[2017-11-14] MEDS: SENNA W/DOCUSATE (SENOKOT S) TABLET PO SCH ×2 (08:08→20:31)
--- NOTE | 2017-11-14 11:45 | Physical Therapy Daily Note ---
PT Daily Note-Current Subjective Pt. in bed, declines PT x 2 attempts. Pt. states he will get up later with nursing and feels comfortable to do so. Pt. commits to doing exercises that were reviewed with him by this GENERAL SURGEON. Pain Numeric Pain Scale: 0-No Pain Transfers Functional [place] Measure 0=Not Assessed/NA 4=Minimal Assistance 1=Total Assistance 5=Supervision or Setup 2=Maximal Assistance 6=Modified [place] 3=Moderate Assistance 7=Complete IndependenceIRFPAI Quality Coding Scale 6 Independent with activity with or without an assistive device 5 Patient requires set up or clean up by helper. Patient completes activity by themselves 4 Supervision or touching assist (CGA). [place] provide cues , steadying assist 3 The helper provides less than half the effort to complete the activity 2 The helper provides more than half the effort to complete the activity 1 Dependent. The helper does all the effort to complete an activity 7 Patient refused to complete or attempt activity 9 The patient did not perform the activity before the current illness or injury 88 Not attempted due to Medical conditions or safety concerns Weight Bearing Right Lower Extremity: Right Non Weight Bearing Left Lower Extremity: Left Weight Bearing/Tolerated LLE WEIGHT BEAR ONLY WITH SURGICAL SHOE ON AND ONLY FOR TRANSFERS Assessment Current Status: Refused Treatment pt. declines Rx and states he knows his exercises and will do them indep. Pt. educated about the importance of activity and circulation etc. Pt. 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 [employer]man [employer] Department Goals PT [employer] Goals Time Frame: Dec 04, 2017 Transfers (B,C,W/C) (FIM): 6 Sit to Lying (QC): 6 Lying-Sitting on Side/Bed(QC): 6 Sit to Stand (QC): 6 Rollin Roll Left to Right (QC): 6 Chair/Rzp-bu-Bdvjy Xfer(QC): 6 Car Transfer (QC): 6 Wheelchair (FIM): 6 Distance: 400' Wheelchair Level of Assist: 6 Wheel 50 feet with 2 turns (QC: 6 PT Plan Treatment/Plan Treatment Plan: Continue Plan of Care Treatment Plan: Bed Mobility, Education, Functional Activity Cesar, Functional Strength, Group Therapy, Safety, Therapeutic Exercise, Transfers Treatment Duration: Dec 04, 2017 Frequency: At least 5 of 7 days/Wk (IRF) Estimated Hrs Per Day: 1.5 hours per day Patient and/or Family Agrees t: Yes Time/GCodes Time In: 855 Time Out: 900 Total Billed Treatment Time: 0 Total Billed Treatment 1,no Rx, no chg G Codes Necessary: PHILIP Brower GENERAL SURGEON Nov 14, 2017 11:45
[2017-11-14] MEDS: ENOXAPARIN 40 MG/0.4 ML (LOVENOX) SYR SC SCH (13:18)
[2017-11-14 18:16] VITALS: BP 119/74
[2017-11-14] MEDS: ATORVASTATIN 40 MG (LIPITOR) TABLET PO SCH (20:31)
[2017-11-15] MEDS: inSUlin ASPART (NovoLOG) 1 UNIT/0.01 ML (CHARGE PER UNIT) SC SCH ×4 (05:21→21:00)
[2017-11-15 05:51] VITALS: BP 115/73
[2017-11-15 06:33] LABS: BASOPHILS % (AUTO) 1 % (0-10); EOSINOPHILS # (AUTO) 0.3 10^3/uL (0.0-0.3); EOSINOPHILS % (AUTO) 4 % (0-10); HEMATOCRIT 37 % (40-54); HEMOGLOBIN 12.3 G/DL (13.3-17.7); LYMPHOCYTES # (AUTO) 1.9 X 10^3 (1.0-4.0); LYMPHOCYTES % (AUTO) 29 % (12-44); MEAN CORPUSCULAR HEMOGLOBIN 27 PG (25-34); MEAN CORPUSCULAR HGB CONC 33 G/DL (32-36); MEAN CORPUSCULAR VOLUME 83 FL (80-99); MEAN PLATELET VOLUME 9.7 FL (7.4-10.4); MONOCYTES # (AUTO) 0.4 X 10^3 (0.0-1.0); MONOCYTES % (AUTO) 7 % (0-12); NEUTROPHILS % (AUTO) 61 % (42-75); PLATELET COUNT 354 10^3/uL (130-400); RED BLOOD COUNT 4.49 10^6/uL (4.35-5.85); RED CELL DISTRIBUTION WIDTH 16.9 % (10.0-14.5); WHITE BLOOD COUNT 6.6 10^3/uL (4.3-11.0)
[2017-11-15] MEDS: CALCIUM CARB + VIT D 600 MG (CALCARB + D) TAB PO SCH (06:33)
[2017-11-15] MEDS: MAGNESIUM OXIDE (MAG-OX)400 MG TAB PO SCH (06:33)
[2017-11-15] MEDS: metFORMIN 500 MG (GLUCOPHAGE) TAB PO SCH ×2 (06:34→16:27)
[2017-11-15] MEDS: AUGMENTIN 875 MG TAB (AMOXICILLIN/CLAVULANATE) PO SCH ×2 (06:34→16:27)
[2017-11-15] MEDS: MULTIVIT W/MINERALS TAB (THERAGRAN M) PO SCH (06:34)
[2017-11-15] MEDS: ASCORBIC ACID (VIT C) 500 MG TABLET PO SCH (06:34)
[2017-11-15] MEDS: POLYETHYLENE GLYCOL 17 GM (MIRALAX) PACK PO SCH ×2 (08:00→21:01)
[2017-11-15] MEDS: GABAPENTIN 300 MG (NEURONTIN) CAP PO SCH ×2 (08:00→21:00)
[2017-11-15] MEDS: ASPIRIN E.C. 325 MG (ECOTRIN) TABLET PO SCH (08:00)
[2017-11-15] MEDS: SENNA W/DOCUSATE (SENOKOT S) TABLET PO SCH ×2 (08:00→21:00)
[2017-11-15] MEDS: ENOXAPARIN 40 MG/0.4 ML (LOVENOX) SYR SC SCH (13:18)
[2017-11-15 17:34] VITALS: BP 116/74
[2017-11-15] MEDS: ATORVASTATIN 40 MG (LIPITOR) TABLET PO SCH (21:00)
[2017-11-15] MEDS: HYDROcodone/APAP 10 MG/325 MG (LORTAB) TAB PO PRN (21:01)
[2017-11-16 06:00] VITALS: BP 109/64
[2017-11-16] MEDS: inSUlin ASPART (NovoLOG) 1 UNIT/0.01 ML (CHARGE PER UNIT) SC SCH ×4 (06:00→20:56)
[2017-11-16] MEDS: AUGMENTIN 875 MG TAB (AMOXICILLIN/CLAVULANATE) PO SCH ×2 (06:12→17:02)
[2017-11-16] MEDS: CALCIUM CARB + VIT D 600 MG (CALCARB + D) TAB PO SCH (06:12)
[2017-11-16] MEDS: MULTIVIT W/MINERALS TAB (THERAGRAN M) PO SCH (06:12)
[2017-11-16] MEDS: ASCORBIC ACID (VIT C) 500 MG TABLET PO SCH (06:12)
[2017-11-16] MEDS: MAGNESIUM OXIDE (MAG-OX)400 MG TAB PO SCH (06:12)
[2017-11-16] MEDS: metFORMIN 500 MG (GLUCOPHAGE) TAB PO SCH ×2 (06:12→17:02)
[2017-11-16] MEDS: GABAPENTIN 300 MG (NEURONTIN) CAP PO SCH ×2 (09:22→21:04)
[2017-11-16] MEDS: ASPIRIN E.C. 325 MG (ECOTRIN) TABLET PO SCH (09:22)
--- NOTE | 2017-11-16 10:03 | Physical Therapy Daily Note ---
PT Daily Note-Current Subjective Patient in wheelchair pre tx, agrees to PT, has pain of 7/10 in his stump. Patient has a pain in his chest left side and states that he feels something underneath the skin. Appearance Patient in wheelchair at bedside post tx with nurse call, phone, tray, all needs met. Mental Status Patient Orientation: Person, Place, Situation Transfers Functional [place] Measure 0=Not Assessed/NA 4=Minimal Assistance 1=Total Assistance 5=Supervision or Setup 2=Maximal Assistance 6=Modified [place] 3=Moderate Assistance 7=Complete IndependenceIRFPAI Quality Coding Scale 6 Independent with activity with or without an assistive device 5 Patient requires set up or clean up by helper. Patient completes activity by themselves 4 Supervision or touching assist (CGA). [place] provide cues , steadying assist 3 The helper provides less than half the effort to complete the activity 2 The helper provides more than half the effort to complete the activity 1 Dependent. The helper does all the effort to complete an activity 7 Patient refused to complete or attempt activity 9 The patient did not perform the activity before the current illness or injury 88 Not attempted due to Medical conditions or safety concerns Transfers (B, C, W/C) (FIM): 5 Scootin Rollin Supine to/from Sit: 5 Sit to/from Stand: 5 Bed to/from Chair: 5 sliding board transfer SBA Weight Bearing Right Lower Extremity: Right Non Weight Bearing Left Lower Extremity: Left Weight Bearing/Tolerated LLE WEIGHT BEAR ONLY WITH SURGICAL SHOE ON AND ONLY FOR TRANSFERS Wheelchair Training Does the Pt Use a Wheelchair?: Yes Wheelchair (FIM): 6 Distance: 150'x2 Type of Wheelchair: Manual Exercises Supine Ex: Ankle pumps, Quad Set, Glut sets, Heel Slides (only left leg), Straight leg raise, Hip abd/add Supine Reps: 20 sidelying hip abd, flex, ext with right leg x20, prone hip stretch for 5 min, seated alternating LAQ x5 min with 2# ankle weight on left NuStep Minutes: 15 NuStep Workload: 1 (No resistance to comply with weight bearing status on the left side) Treatments bed mobility and transfers, functional strengthening and ROM Assessment Current Status: Fair Progress improving general mobility PT Short Term Goals Short Term Goals Time Frame: Nov 20, 2017 Wheelchair (FIM): 6 Wheelchair Distance: 150'x2 PT Helminthology Teacher Goals Helminthology Teacher Goals PT Long-Term Goals Time Frame: Dec 04, 2017 Transfers (B,C,W/C) (FIM): 6 Sit to Lying (QC): 6 Lying-Sitting on Side/Bed(QC): 6 Sit to Stand (QC): 6 Rollin Roll Left to Right (QC): 6 Chair/Ssi-iz-Uxqrs Xfer(QC): 6 Car Transfer (QC): 6 Wheelchair (FIM): 6 Distance: 400' Wheelchair Level of Assist: 6 Wheel 50 feet with 2 turns (QC: 6 PT Plan Problem List Problem List: Activity Tolerance, Functional Strength, Safety, Balance, Transfer, Bed Mobility, ROM Treatment/Plan Treatment Plan: Continue Plan of Care Treatment Plan: Bed Mobility, Education, Functional Activity Cesar, Functional Strength, Group Therapy, Safety, Therapeutic Exercise, Transfers Treatment Duration: Dec 04, 2017 Frequency: At least 5 of 7 days/Wk (IRF) Estimated Hrs Per Day: 1.5 hours per day Patient and/or Family Agrees t: Yes Safety Risks/Education Patient Education: Transfer Techniques, Correct Positioning, W/C Management, Safety Issues Teaching Recipient: Patient Teaching Methods: Handout, Discussion Response to Teaching: Reinforcement Needed Time/GCodes Time In: 0900 Time Out: 1000 Total Billed Treatment Time: 60 Total Billed Treatment 1 visit FA 15' EX 45' LEX SANTOS PT Nov 16, 2017 10:03
--- NOTE | 2017-11-16 10:42 | Diagnostic Imaging Report ---
INDICATION: Possible needle in chest wall. COMPARISON: 09/06/2017. TECHNIQUE: Two views of the chest were obtained. FINDINGS: The heart size is normal. The pulmonary vessels appear unremarkable. There is no pneumothorax, mediastinal widening, or pleural fluid. The lungs are clear with the exception of a stable nodular density in the left mid chest. There are mild degenerative changes in the spine. There is a nipple marker in place over the left chest. No radiopaque foreign bodies are demonstrated. IMPRESSION: No evidence of an acute cardiopulmonary abnormality. No radiopaque foreign bodies are demonstrated in the area of the left nipple. Dictated by: Dictated on workstation # [id number]
[2017-11-16] MEDS: POLYETHYLENE GLYCOL 17 GM (MIRALAX) PACK PO SCH ×2 (10:53→20:57)
[2017-11-16] MEDS: SENNA W/DOCUSATE (SENOKOT S) TABLET PO SCH ×2 (10:53→20:57)
--- NOTE | 2017-11-16 11:55 | Occupational Ther Daily Note ---
OT Current Status-Daily Note Subjective Pt alert, sitting up in chair. Pt agrees to therapy. Pt c/o pain around chest nipple area, physician has been notified and x-ray been ordered. Mental Status/Objective Patient Orientation: Person, Place, Time, Situation Functional [place] Measure 0=Not Assessed/NA 4=Minimal Assistance 1=Total Assistance 5=Supervision or Setup 2=Maximal Assistance 6=Modified [place] 3=Moderate Assistance 7=Complete [place] ADL-Treatment Functional [place] Measure 0=Not Assessed/NA 4=Minimal Assistance 1=Total Assistance 5=Supervision or Setup 2=Maximal Assistance 6=Modified [place] 3=Moderate Assistance 7=Complete IndependenceIRFPAI Quality Coding Scale 6 Independent with activity with or without an assistive device 5 Patient requires set up or clean up by helper. Patient completes activity by themselves 4 Supervision or touching assist (CGA). [place] provide cues , steadying assist 3 The helper provides less than half the effort to complete the activity 2 The helper provides more than half the effort to complete the activity 1 Dependent. The helper does all the effort to complete an activity 7 Patient refused to complete or attempt activity 9 The patient did not perform the activity before the current illness or injury 88 Not attempted due to Medical conditions or safety concerns Grooming (FIM): 6 (Pt able to complete sitting at sink.) Oral Hygiene (QC): 6 Bathing (FIM): 6 (Using shower bench, hand held shower and grabbar pt able to complete by self. R LE BKA and wrapped, L LE wrapped to keep dry.) Bathing Location: L Arm, R Arm, L Upper Leg, R Upper Leg, Chest, Abdomen, Buttocks, Perineal Area Shower/Bathe Self (QC): 6 Upper Body (FIM): 6 (Retrieves clothing w/c level and able to don/doff by self. ) Upper Body Dressing (QC): 6 Lower Body Dressing (FIM): 6 (Retrieves clothing at w/c level. Completes dressing by self.) Lower Body Dressing (QC): 6 Shower Transfer(FIM): 6 (Maneuvers w/c to correct position and places sliding board to transfer by self.) Other Treatment Pt completed arm bike 15 min at 25 butler resistance to increase strength and activity tolerance for daily functional tasks. 3# wt's for UE strengthening HEP for lying supine or sitting. Pt given handout to keep in room for all exercises. 3 sets 10 reps of each exercise, tolerated well. After therapy, pt lying in bed with call light/phone in reach. Nrsg present in room. All needs met in room. OT Short Term Goals Short Term Goals Time Frame: Nov 20, 2017 Grooming(FIM): 6 Toileting(FIM): 6 Toilet/Commode Transfer(FIM): 6 Additional Short Term Goals: 1-Demonstrate ADL Tasks, 2-Verbalize Understanding , 3-ImproveStrength/Cesar 1=Demonstrate adherence to instructed precautions during ADL tasks. 2=Patient will verbalize/demonstrate understanding of assistive devices/ modifications for ADL. 3=Patient will improve strength/tolerance for activity to enable patient to perform ADL's. OT Linoleum Floor Layer Goals Linoleum Floor Layer Goals Time Frame: Dec 04, 2017 Eating (FIM): 7 Eating (QC): 6 Groomin Oral Hygiene (QC): 6 Bathing(FIM): 6 Shower/Bathe Self (QC): 6 Upper Body Dressing(FIM): 6 Upper Body Dressing (QC): 6 Lower Body Dressing(FIM): 6 Lower Body Dressing (QC): 6 On/Off Footwear (QC): 6 Toileting(FIM): 6 Toileting Hygiene (QC): 6 Toilet/Commode Transfer(FIM): 6 Toilet/Commode Transfer (QC): 6 Shower Transfer(FIM): 6 Additional Goals: 1-Demonstrate ADL Tasks, 2-Verbalize Understanding, 3- ImproveStrength/Cesar 1=Demonstrate adherence to instructed precautions during ADL tasks. 2=Patient will verbalize/demonstrate understanding of assistive devices/ modifications for ADL. 3=Patient will improve strength/tolerance for activity to enable patient to perform ADL's. OT Education/Plan Problem List/Assessment Pt would benefit from skilled OT to increase his independence in basic self care to allow him to safely return home Discharge Recommendations Plan/Recommendations: Continue POC Treatment Plan/Plan of Care Patient would benefit from OT for education, treatment and training to promote independence in ADL's, mobility, safety and/or upper extremity function for ADL' s. Plan of Care: ADL Retraining, Functional Mobility, Group Exercise/Act as Ind ( education, exercise, functional activity, activity tolerance, socialization) Treatment Duration: Dec 04, 2017 Frequency: At least 5 of 7 days/Wk (IRF) Estimated Hrs Per Day: 1.5 hours per day Agreement: Yes Rehab Potential: Good Time/GCodes Start Time: 10:10 Stop Time: 11:40 Total Time Billed (hr/min): 90 Billed Treatment Time 1 visit-ADL 4 (60 min) EX 2 (30 min) SOO SCHRADER Nov 16, 2017 11:55
[2017-11-16] MEDS: ENOXAPARIN 40 MG/0.4 ML (LOVENOX) SYR SC SCH (12:55)
--- NOTE | 2017-11-16 14:27 | Therapy Group Daily Note ---
Therapy Daily Group Note Patient Education Topic Other List Below (orientation to rehab practices and expectations, importance of activity and exercise) Other/Notes Pt. attended group PT OT session this date. Pt.used w/c to transport to and from and required min assist to slide board for TRFs. Pt. participated well introducing himself and initiating conversation. Pts. all participated in U&L extremity exercises sharing ones they had learned and demonstrating them to others for group exercise. Orientation to rehab education was completed as well as explanation of 3 hr expectation and schedule etc. Pt. to room after exercise and education. Start Time: 13:00 Stop Time: 14:05 Total Billed Treatment Time: 65 Total Billed Treatment 1,GRP PHILIP SAENZ PATIENT RESOURCE COORDINATOR Nov 16, 2017 14:27
[2017-11-16 18:28] VITALS: BP 127/87
--- NOTE | 2017-11-16 21:02 | PM & R (SOAP) Progress Note ---
Subjective This was a face to face visit with the patient. Date Seen by Provider: Nov 16, 2017 Time Seen by Provider: 20:00 Subjective/Events-last exam Patient was seen in his rrom this evening Discussed case with RN Patient had BM with adjustment in meds Patient SBA for transfers. Objective Physician Exam Last Set of Vital Signs Vital Signs Date Time Temp Pulse Resp B/P (MAP) Pulse Ox O2 Delivery O2 Flow Rate FiO2 11/16/17 18:28 97.2 88 18 127/87 (100) 97 Room Air Capillary Refill : I&O Intake and Output 11/16/17 00:00 Intake Total 4120 ml Output Total 7775 ml Balance -3655 ml Intake Oral 4120 ml Output Urine Total 7775 ml # Bowel Movements 1 General: Alert, Oriented X3, Cooperative, No Acute Distress HEENT: Atraumatic, PERRLA, EOMI, Mucous Memb Moist/Morales-Sanchez Neck: Supple, No JVD Lungs: Clear to Auscultation Heart: Regular Rate Abdomen: Normal Bowel Sounds, Soft, No Tenderness, Other (RT BKA floyd wrapped Left foot in kerlex and dressing) Neuro: Other (Good strength BU LIMBS Fair +good- At hips) Results Lab Data Laboratory Tests 11/13/17 21:32: Glucometer 129H 11/14/17 06:20: Glucometer 109 11/14/17 11:06: Glucometer 102 11/14/17 16:03: Glucometer 110 11/14/17 20:28: Glucometer 214H 11/15/17 05:19: Glucometer 99 11/15/17 05:40: White Blood Count 6.6, Red Blood Count 4.49, Hemoglobin 12.3L, Hematocrit 37L, Mean Corpuscular Volume 83, Mean Corpuscular Hemoglobin 27, Mean Corpuscular Hemoglobin Concent 33, Red Cell Distribution Width 16.9H, Platelet Count 354, Mean Platelet Volume 9.7, Neutrophils (%) (Auto) 61, Lymphocytes (%) (Auto) 29, Monocytes (%) (Auto) 7, Eosinophils (%) (Auto) 4, Basophils (%) (Auto) 1, Neutrophils # (Auto) 4.0, Lymphocytes # (Auto) 1.9, Monocytes # (Auto) 0.4, Eosinophils # (Auto) 0.3, Basophils # (Auto) 0.0 11/15/17 11:02: Glucometer 111H 11/15/17 16:24: Glucometer 115H 11/15/17 20:59: Glucometer 130H 11/16/17 05:54: Glucometer 139H 11/16/17 11:36: Glucometer 90 11/16/17 17:15: Glucometer 105 11/16/17 20:43: Glucometer 174H Assessment/Plan Assessment and Plan 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
[2017-11-16] MEDS: ATORVASTATIN 40 MG (LIPITOR) TABLET PO SCH (21:04)
[2017-11-17] MEDS: HYDROcodone/APAP 10 MG/325 MG (LORTAB) TAB PO PRN (02:19)
[2017-11-17 06:00] VITALS: BP 116/76
[2017-11-17] MEDS: CALCIUM CARB + VIT D 600 MG (CALCARB + D) TAB PO SCH (06:23)
[2017-11-17] MEDS: AUGMENTIN 875 MG TAB (AMOXICILLIN/CLAVULANATE) PO SCH ×2 (06:23→17:09)
[2017-11-17] MEDS: MULTIVIT W/MINERALS TAB (THERAGRAN M) PO SCH (06:23)
[2017-11-17] MEDS: inSUlin ASPART (NovoLOG) 1 UNIT/0.01 ML (CHARGE PER UNIT) SC SCH ×4 (06:23→20:45)
[2017-11-17] MEDS: metFORMIN 500 MG (GLUCOPHAGE) TAB PO SCH ×2 (06:23→17:09)
[2017-11-17] MEDS: MAGNESIUM OXIDE (MAG-OX)400 MG TAB PO SCH (06:24)
[2017-11-17] MEDS: ASCORBIC ACID (VIT C) 500 MG TABLET PO SCH (06:24)
[2017-11-17] MEDS: ASPIRIN E.C. 325 MG (ECOTRIN) TABLET PO SCH (08:34)
[2017-11-17] MEDS: GABAPENTIN 300 MG (NEURONTIN) CAP PO SCH ×2 (08:34→20:18)
[2017-11-17] MEDS: POLYETHYLENE GLYCOL 17 GM (MIRALAX) PACK PO SCH ×2 (08:35→20:18)
[2017-11-17] MEDS: SENNA W/DOCUSATE (SENOKOT S) TABLET PO SCH ×2 (08:35→20:18)
--- NOTE | 2017-11-17 09:59 | Physical Therapy Daily Note ---
PT Daily Note-Current Subjective Patient in wheelchair in therapy gym pre tx, agrees to PT, has pain of 4/10 in right leg. Appearance Patient in wheelchair in room post tx. Patient has been made independent in his room, nursing notified. Mental Status Patient Orientation: Normal For Age Transfers Functional [place] Measure 0=Not Assessed/NA 4=Minimal Assistance 1=Total Assistance 5=Supervision or Setup 2=Maximal Assistance 6=Modified [place] 3=Moderate Assistance 7=Complete IndependenceIRFPAI Quality Coding Scale 6 Independent with activity with or without an assistive device 5 Patient requires set up or clean up by helper. Patient completes activity by themselves 4 Supervision or touching assist (CGA). [place] provide cues , steadying assist 3 The helper provides less than half the effort to complete the activity 2 The helper provides more than half the effort to complete the activity 1 Dependent. The helper does all the effort to complete an activity 7 Patient refused to complete or attempt activity 9 The patient did not perform the activity before the current illness or injury 88 Not attempted due to Medical conditions or safety concerns Transfers (B, C, W/C) (FIM): 6 Scootin Rollin Supine to/from Sit: 6 Bed to/from Chair: 6 Patient performs a bed to chair transfer with mod I, with or without a sliding board. Weight Bearing Right Lower Extremity: Right Non Weight Bearing Left Lower Extremity: Left Weight Bearing/Tolerated LLE WEIGHT BEAR ONLY WITH SURGICAL SHOE ON AND ONLY FOR TRANSFERS Wheelchair Training Does the Pt Use a Wheelchair?: Yes Wheelchair (FIM): 6 Distance: 2000' Type of Wheelchair: Manual Patient propelled a manual wheelchair over community surfaces and up and down a ramp, he performed this with mod I using only arms to propel Exercises Supine Ex: Ankle pumps (left side), Quad Set, Glut sets, Heel Slides (left side ), Straight leg raise, Hip abd/add Supine Reps: 20 side lying right leg exercises x20 (hip flex, abd, ext), seated LAQ alternating with 3# ankle weight on left leg for 5 min, prone hip flexor stretch for 5 min Treatments bed mobility and transfers, functional strengthening and ROM, wheelchair mobility Assessment Current Status: Good Progress Patient is mod I with wheelchair mobility and transfers, he has been made independent in his room PT Short Term Goals Short Term Goals Time Frame: Nov 20, 2017 Wheelchair (FIM): 6 Wheelchair Distance: 150'x2 PT Manufacturing Laborer Goals Manufacturing Laborer Goals PT Manufacturing Laborer Goals Time Frame: Dec 04, 2017 Transfers (B,C,W/C) (FIM): 6 Sit to Lying (QC): 6 Lying-Sitting on Side/Bed(QC): 6 Sit to Stand (QC): 6 Rollin Roll Left to Right (QC): 6 Chair/[id number]-Wuqfj Xfer(QC): 6 Car Transfer (QC): 6 Wheelchair (FIM): 6 Distance: 400' Wheelchair Level of Assist: 6 Wheel 50 feet with 2 turns (QC: 6 PT Plan Problem List Problem List: Activity Tolerance, Functional Strength, Safety, Balance, Gait, Transfer, Bed Mobility, ROM Treatment/Plan Treatment Plan: Continue Plan of Care Treatment Plan: Bed Mobility, Education, Functional Activity Cesar, Functional Strength, Group Therapy, Safety, Therapeutic Exercise, Transfers Treatment Duration: Dec 04, 2017 Frequency: At least 5 of 7 days/Wk (IRF) Estimated Hrs Per Day: 1.5 hours per day Patient and/or Family Agrees t: Yes Safety Risks/Education Patient Education: Transfer Techniques, Reviewed Precautions, Correct Positioning, W/C Management, Safety Issues Teaching Recipient: Patient Teaching Methods: Demonstration, Discussion Response to Teaching: Reinforcement Needed Time/GCodes Time In: 0900 Time Out: 1000 Total Billed Treatment Time: 60 Total Billed Treatment 1 visit [facility] 30' EX 30' LEX SANTOS PT Nov 17, 2017 09:59
--- NOTE | 2017-11-17 11:37 | Occupational Ther Daily Note ---
OT Current Status-Daily Note Subjective Pt alert, sitting in w/c. Pt agrees to therapy. C/o pain with R stump, does not want pain meds. Mental Status/Objective Patient Orientation: Person, Place, Time, Situation Functional [place] Measure 0=Not Assessed/NA 4=Minimal Assistance 1=Total Assistance 5=Supervision or Setup 2=Maximal Assistance 6=Modified [place] 3=Moderate Assistance 7=Complete [place] ADL-Treatment Functional [place] Measure 0=Not Assessed/NA 4=Minimal Assistance 1=Total Assistance 5=Supervision or Setup 2=Maximal Assistance 6=Modified [place] 3=Moderate Assistance 7=Complete IndependenceIRFPAI Quality Coding Scale 6 Independent with activity with or without an assistive device 5 Patient requires set up or clean up by helper. Patient completes activity by themselves 4 Supervision or touching assist (CGA). [place] provide cues , steadying assist 3 The helper provides less than half the effort to complete the activity 2 The helper provides more than half the effort to complete the activity 1 Dependent. The helper does all the effort to complete an activity 7 Patient refused to complete or attempt activity 9 The patient did not perform the activity before the current illness or injury 88 Not attempted due to Medical conditions or safety concerns Eating (FIM): 7 (Completes set up and uses regular utensils by self.) Eating (QC): 6 Grooming (FIM): 6 (Sitting in w/c pt able to complete own grooming.) Oral Hygiene (QC): 6 Bathing (FIM): 6 (Using shower bench, grabbar and hand held shower pt able to complete own shower, rinse and drying. Pt covers own R stump and L foot to keep from getting wet in shower.) Bathing Location: L Arm, R Arm, L Upper Leg, R Upper Leg, Chest, Abdomen, Buttocks, Perineal Area Shower/Bathe Self (QC): 6 Upper Body (FIM): 6 (Using w/c to retrieve clothing, pt able to complete own upper body dressing.) Upper Body Dressing (QC): 6 Lower Body Dressing (FIM): 6 (Retrieves clothing at w/c level and completes own lower body dressing by self.) Lower Body Dressing (QC): 6 On/Off Footwear (QC): 6 Transfers (B, C, W/C) (FIM): 6 (Sliding board transfer or squat pivot transfer from surface to surface by self.) Shower Transfer(FIM): 6 (Using w/c, shower bench and grabbar pt able to complete sliding board and squat pivot transfer by self.) Other Treatment Pt completed arm bike 15 min 30 butler resistance to increase strength and activity tolerance for daily functional tasks. Completed 3 sets 10 reps 8 exercises with 6# wt to increase UE strength for w/c mobility and ADLs. Pt then was able to take laundry to washer and complete sitting in w/c. Discussed home environment of kitchen and bathroom. Pt is having construction completed at his home for accessibility with w/c and walker. AE catalog given to pt for resource for daily living equipment that may be useful. After therapy, pt sitting in w/c with call light/phone in reach. All needs met in room. OT Short Term Goals Short Term Goals Time Frame: Nov 20, 2017 Grooming(FIM): 6 Toileting(FIM): 6 Toilet/Commode Transfer(FIM): 6 Additional Short Term Goals: 1-Demonstrate ADL Tasks, 2-Verbalize Understanding , 3-ImproveStrength/Cesar 1=Demonstrate adherence to instructed precautions during ADL tasks. 2=Patient will verbalize/demonstrate understanding of assistive devices/ modifications for ADL. 3=Patient will improve strength/tolerance for activity to enable patient to perform ADL's. OT Senior Living Goals Solicitor Patent Goals Time Frame: Dec 04, 2017 Eating (FIM): 7 Eating (QC): 6 Groomin Oral Hygiene (QC): 6 Bathing(FIM): 6 Shower/Bathe Self (QC): 6 Upper Body Dressing(FIM): 6 Upper Body Dressing (QC): 6 Lower Body Dressing(FIM): 6 Lower Body Dressing (QC): 6 On/Off Footwear (QC): 6 Toileting(FIM): 6 Toileting Hygiene (QC): 6 Toilet/Commode Transfer(FIM): 6 Toilet/Commode Transfer (QC): 6 Shower Transfer(FIM): 6 Additional Goals: 1-Demonstrate ADL Tasks, 2-Verbalize Understanding, 3- ImproveStrength/Cesar 1=Demonstrate adherence to instructed precautions during ADL tasks. 2=Patient will verbalize/demonstrate understanding of assistive devices/ modifications for ADL. 3=Patient will improve strength/tolerance for activity to enable patient to perform ADL's. OT Education/Plan Problem List/Assessment Pt would benefit from skilled OT to increase his independence in basic self care to allow him to safely return home Discharge Recommendations Plan/Recommendations: Continue POC Treatment Plan/Plan of Care Patient would benefit from OT for education, treatment and training to promote independence in ADL's, mobility, safety and/or upper extremity function for ADL' s. Plan of Care: ADL Retraining, Functional Mobility, Group Exercise/Act as Ind ( education, exercise, functional activity, activity tolerance, socialization) Treatment Duration: Dec 04, 2017 Frequency: At least 5 of 7 days/Wk (IRF) Estimated Hrs Per Day: 1.5 hours per day Agreement: Yes Rehab Potential: Good Time/GCodes Start Time: 10:00 Stop Time: 11:30 Total Time Billed (hr/min): 90 Billed Treatment Time 1 visit-EX 3 (45 min) ADL 1 (20 min) FA 2 (25 min) SOO SCHRADER Nov 17, 2017 11:37
[2017-11-17] MEDS: ENOXAPARIN 40 MG/0.4 ML (LOVENOX) SYR SC SCH (12:54)
--- NOTE | 2017-11-17 13:53 | Physical Therapy Daily Note ---
PT Daily Note-Current Subjective Patient in bed pre tx, agrees to PT, has pain of 5/10 in right leg. Appearance Patient BTB post tx with nurse call, phone, tray, all needs met. Mental Status Patient Orientation: Normal For Age Transfers Functional [place] Measure 0=Not Assessed/NA 4=Minimal Assistance 1=Total Assistance 5=Supervision or Setup 2=Maximal Assistance 6=Modified [place] 3=Moderate Assistance 7=Complete IndependenceIRFPAI Quality Coding Scale 6 Independent with activity with or without an assistive device 5 Patient requires set up or clean up by helper. Patient completes activity by themselves 4 Supervision or touching assist (CGA). [place] provide cues , steadying assist 3 The helper provides less than half the effort to complete the activity 2 The helper provides more than half the effort to complete the activity 1 Dependent. The helper does all the effort to complete an activity 7 Patient refused to complete or attempt activity 9 The patient did not perform the activity before the current illness or injury 88 Not attempted due to Medical conditions or safety concerns Transfers (B, C, W/C) (FIM): 6 Scootin Rollin Supine to/from Sit: 6 Bed to/from Chair: 6 Weight Bearing Right Lower Extremity: Right Non Weight Bearing Left Lower Extremity: Left Weight Bearing/Tolerated LLE WEIGHT BEAR ONLY WITH SURGICAL SHOE ON AND ONLY FOR TRANSFERS Wheelchair Training Does the Pt Use a Wheelchair?: Yes Wheelchair (FIM): 6 Distance: 150'x2 Type of Wheelchair: Manual Exercises NuStep Minutes: 15 NuStep Workload: 1 (no resistance to comply with weight bearing status of left leg, just ROM) Treatments bed mobility and transfers, functional strengthening/ROM, wheelchair mobility Assessment Current Status: Fair Progress improving mobility PT Short Term Goals Short Term Goals Time Frame: Nov 20, 2017 Wheelchair (FIM): 6 Wheelchair Distance: 2000' PT Tax Form Preparer Goals Tax Form Preparer Goals PT Tax Form Preparer Goals Time Frame: Dec 04, 2017 Transfers (B,C,W/C) (FIM): 6 Sit to Lying (QC): 6 Lying-Sitting on Side/Bed(QC): 6 Sit to Stand (QC): 6 Rollin Roll Left to Right (QC): 6 Chair/Xtx-sd-Alhqh Xfer(QC): 6 Car Transfer (QC): 6 Wheelchair (FIM): 6 Distance: 400' Wheelchair Level of Assist: 6 Wheel 50 feet with 2 turns (QC: 6 PT Plan Problem List Problem List: Activity Tolerance, Functional Strength, Safety, Balance, Transfer, Bed Mobility, ROM Treatment/Plan Treatment Plan: Continue Plan of Care Treatment Plan: Bed Mobility, Education, Functional Activity Cesar, Functional Strength, Group Therapy, Safety, Therapeutic Exercise, Transfers Treatment Duration: Dec 04, 2017 Frequency: At least 5 of 7 days/Wk (IRF) Estimated Hrs Per Day: 1.5 hours per day Patient and/or Family Agrees t: Yes Safety Risks/Education Patient Education: Transfer Techniques, Reviewed Precautions, Correct Positioning, W/C Management, Safety Issues Teaching Recipient: Patient Teaching Methods: Demonstration, Discussion Response to Teaching: Reinforcement Needed Time/GCodes Time In: 1320 Time Out: 1350 Total Billed Treatment Time: 30 Total Billed Treatment 1 visit EX 15' FA 15' LEX SANTOS PT Nov 17, 2017 13:53
--- NOTE | 2017-11-17 14:34 | PM & R (SOAP) Progress Note ---
Subjective This was a face to face visit with the patient. Date Seen by Provider: Nov 17, 2017 Time Seen by Provider: 08:00 Subjective/Events-last exam Patient was seen in his room and on unit Patient Modified Independent for transfers Independent for w/c propulsion on unit.RX for DME W/C and slideboard and BSC providedwith drop arm Objective Physician Exam Last Set of Vital Signs Vital Signs Date Time Temp Pulse Resp B/P (MAP) Pulse Ox O2 Delivery O2 Flow Rate FiO2 11/17/17 06:00 97.6 59 16 116/76 (89) 95 Room Air Capillary Refill : I&O Intake and Output 11/17/17 00:00 Intake Total 4073 ml Output Total 6000 ml Balance -1927 ml Intake Oral 4073 ml Output Urine Total 6000 ml General: Alert, Oriented X3, Cooperative, No Acute Distress HEENT: Atraumatic, PERRLA, EOMI, Mucous Memb Moist/[place] Neck: Supple, No JVD Lungs: Clear to Auscultation Heart: Regular Rate Abdomen: Normal Bowel Sounds, Soft, No Tenderness, Other (RT BKA floyd wrapped Left foot in kerlex and dressing) Neuro: Other (Good strength BU LIMBS Fair +good- At hips) Results Lab Data Laboratory Tests 11/14/17 16:03: Glucometer 110 11/14/17 20:28: Glucometer 214H 11/15/17 05:19: Glucometer 99 11/15/17 05:40: White Blood Count 6.6, Red Blood Count 4.49, Hemoglobin 12.3L, Hematocrit 37L, Mean Corpuscular Volume 83, Mean Corpuscular Hemoglobin 27, Mean Corpuscular Hemoglobin Concent 33, Red Cell Distribution Width 16.9H, Platelet Count 354, Mean Platelet Volume 9.7, Neutrophils (%) (Auto) 61, Lymphocytes (%) (Auto) 29, Monocytes (%) (Auto) 7, Eosinophils (%) (Auto) 4, Basophils (%) (Auto) 1, Neutrophils # (Auto) 4.0, Lymphocytes # (Auto) 1.9, Monocytes # (Auto) 0.4, Eosinophils # (Auto) 0.3, Basophils # (Auto) 0.0 11/15/17 11:02: Glucometer 111H 11/15/17 16:24: Glucometer 115H 11/15/17 20:59: Glucometer 130H 11/16/17 05:54: Glucometer 139H 11/16/17 11:36: Glucometer 90 11/16/17 17:15: Glucometer 105 11/16/17 20:43: Glucometer 174H 11/17/17 04:57: Glucometer 118H 11/17/17 11:18: Glucometer 91 Assessment/Plan Assessment and Plan 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
[2017-11-17 16:29] VITALS: BP 113/73
--- NOTE | 2017-11-17 16:32 | Individualized Plan of Care ---
Individualized Plan of Care Rehab Nursing IPOC Order Admission Date Nov 13, 2017 at 10:31 Current Orders Orders Pt Evaluate/Treat Request (11/13/17 09:13) Request Ot Evaluate & Treat (11/13/17 09:13) Request For Cognitive Services (11/13/17 09:13) Weight Bearing Status (11/13/17 09:13) Admission-Acute Rehab Unit (11/13/17 10:00) Admission Arrival Bed Request (11/13/17 10:00) Accucheck [facility]s [facility] (11/13/17 10:31) Nursing Communication (Order) (11/13/17 10:31) Weight Bearing Status (11/13/17 10:31) General/Regular (11/13/17 Lunch) Acetaminophen Tablet (Tylenol Tablet) (11/13/17 10:45) Amoxicillin/Clavulanate Tablet (Augmenti (11/13/17 17:00) Aspirin Enteric Coated Tablet (Ecotrin T (11/14/17 09:00) Bisacodyl Suppository (Dulcolax Supposit (11/13/17 10:45) Gabapentin Capsule/Tablet (Neurontin Cap (11/13/17 21:00) Hydrocodone/Apap 10/325 Tablet (Lortab 1 (11/13/17 10:45) Ibuprofen Tablet (Motrin Tablet) (11/13/17 10:45) Insulin Aspart (Novolog) (Novolog (Charg (11/13/17 11:00) Senna S Tablet (Senokot S Tablet) (11/13/17 21:00) Tramadol Tablet (Ultram Tablet) (11/13/17 10:45) Consult Wound Care Physician (11/13/17 10:31) Rt Request For Service (11/13/17 10:31) Head Of History Consult (11/13/17 10:31) Ascorbic Acid Tablet (Vitamin C Tablet) (11/14/17 07:00) Calcium Carbonate W/Vitamin D3 (Calcarb (11/14/17 07:00) Magnesium Oxide Tablet (Mag Ox Tablet) (11/14/17 07:00) Metformin Tablet (Glucophage Tablet) (11/13/17 17:00) Therapeutic Multivitamin Tab (Vitamins, (11/14/17 07:00) Enoxaparin Injection (Lovenox Injection) (11/13/17 13:00) Atorvastatin Tablet (Lipitor) (11/13/17 21:00) Incentive Spirometry (Nursing) Q2H (11/13/17 11:13) Consult Physician (11/13/17 11:13) Nursing Communication (Order) (11/13/17 11:13) Oxygen-Administer 07,19 (11/13/17 11:13) Polyethylene Glycol Powder Pkt (Miralax (11/13/17 21:00) Patient Visit (11/13/17 ) Pt Eval Moderate Complexity (11/13/17 ) Wheelchair Mgmt/Propulsn 15min (11/13/17 ) Functional Activities, Ea 15 (11/13/17 ) Patient Visit (11/13/17 ) Wheelchair Mgmt/Propulsn 15min (11/13/17 ) Exercise Therap, Ea 15 Min (11/13/17 ) Patient Visit (11/13/17 ) Speech Sound Lang Comp (11/13/17 ) Patient Visit (11/14/17 ) Cbc With Automated Diff (11/15/17 05:00) Chest Pa/Lat (2 View) (11/16/17 10:04) Patient Visit (11/16/17 ) Functional Activities, Ea 15 (11/16/17 ) Exercise Therap, Ea 15 Min (11/16/17 ) Patient Visit (11/16/17 ) Therapeutic, Group (11/16/17 ) Patient Visit (11/17/17 ) Wheelchair Mgmt/Propulsn 15min (11/17/17 ) Exercise Therap, Ea 15 Min (11/17/17 ) Functional Activities, Ea 15 (11/17/17 ) Other Nursing Orders: Monitor for urinary retention and constipation PT IPOC Problem List: Activity Tolerance, Functional Strength, Safety, Balance, Transfer, Bed Mobility, ROM Treatment Plan: Continue Plan of Care Bed Mobility, Education, Functional Activity Cesar, Functional Strength, Group Therapy, Safety, Therapeutic Exercise, Transfers Treatment Duration: Dec 04, 2017 Frequency: At least 5 of 7 days/Wk (IRF) Estimated Hrs Per Day: 1.5 hours per day OT IPOC Problems: Decreased Activ Tolerance, Decreased UE Strength, Dependent Transfers , Impaired Funct Balance, Impaired Self-Care Skills OT Treatment, Training and Edu: Yes OT Problems Pt would benefit from skilled OT to increase his independence in basic self care to allow him to safely return home Plan of Care: ADL Retraining, Functional Mobility, Group Exercise/Act as Ind ( education, exercise, functional activity, activity tolerance, socialization) Treatment Duration: Dec 04, 2017 Frequency: At least 5 of 7 days/Wk (IRF) Estimated Hrs Per Day: 1.[address] IPOC Speech Therapy Treatment Plan: Discontinue ST Treatment Duration: Nov 17, 2017 Frequency: Modified Program (IRF) (No ST warranted.) Estimated Hrs Per Day: Other (No ST warranted.) Head Of History/Case Mgmt Head Of History/Case Managemen: Discharge Planning, Patient/Family Counseling Dietitian/Tool Crib Clerk Dietitian/Tool Crib Clerk to monitor nutritional status and make changes and/or recommendations as needed and work with speech pathology on dietary upgrades as the occur. 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
[2017-11-17] MEDS: ATORVASTATIN 40 MG (LIPITOR) TABLET PO SCH (20:18)
[2017-11-18] MEDS: HYDROcodone/APAP 10 MG/325 MG (LORTAB) TAB PO PRN ×3 (01:52→17:06)
[2017-11-18] MEDS: AUGMENTIN 875 MG TAB (AMOXICILLIN/CLAVULANATE) PO SCH ×2 (06:07→16:38)
[2017-11-18] MEDS: MAGNESIUM OXIDE (MAG-OX)400 MG TAB PO SCH (06:08)
[2017-11-18] MEDS: ASCORBIC ACID (VIT C) 500 MG TABLET PO SCH (06:08)
[2017-11-18] MEDS: metFORMIN 500 MG (GLUCOPHAGE) TAB PO SCH ×2 (06:08→16:39)
[2017-11-18] MEDS: CALCIUM CARB + VIT D 600 MG (CALCARB + D) TAB PO SCH (06:08)
[2017-11-18] MEDS: MULTIVIT W/MINERALS TAB (THERAGRAN M) PO SCH (06:08)
[2017-11-18] MEDS: inSUlin ASPART (NovoLOG) 1 UNIT/0.01 ML (CHARGE PER UNIT) SC SCH ×4 (06:18→21:39)
[2017-11-18 06:19] VITALS: BP 120/79
[2017-11-18] MEDS: GABAPENTIN 300 MG (NEURONTIN) CAP PO SCH ×2 (08:35→20:29)
[2017-11-18] MEDS: ASPIRIN E.C. 325 MG (ECOTRIN) TABLET PO SCH (08:35)
--- NOTE | 2017-11-18 08:35 | PM & R (SOAP) Progress Note ---
Subjective This was a face to face visit with the patient. Date Seen by Provider: Nov 18, 2017 Time Seen by Provider: 07:45 Subjective/Events-last exam Patient was seen in his rrom this AM Patient Modified Independent for transfers. Review of Systems Musculoskeletal: leg pain Objective Physician Exam Last Set of Vital Signs Vital Signs Date Time Temp Pulse Resp B/P (MAP) Pulse Ox O2 Delivery O2 Flow Rate FiO2 11/18/17 06:19 97.9 63 18 120/79 (93) 97 Room Air Capillary Refill : I&O Intake and Output 11/18/17 00:00 Intake Total 1460 ml Output Total 2700 ml Balance -1240 ml Intake Oral 1460 ml Output Urine Total 2700 ml General: Alert, Oriented X3, Cooperative, No Acute Distress HEENT: Atraumatic, PERRLA, EOMI, Mucous Memb Moist/[place] Neck: Supple, No JVD Lungs: Clear to Auscultation Heart: Regular Rate Abdomen: Normal Bowel Sounds, Soft, No Tenderness, Other (RT BKA floyd wrapped Left foot in kerlex and dressing) Neuro: Other (Good strength BU LIMBS Fair +good- At hips) Results Lab Data Laboratory Tests 11/15/17 11:02: Glucometer 111H 11/15/17 16:24: Glucometer 115H 11/15/17 20:59: Glucometer 130H 11/16/17 05:54: Glucometer 139H 11/16/17 11:36: Glucometer 90 11/16/17 17:15: Glucometer 105 11/16/17 20:43: Glucometer 174H 11/17/17 04:57: Glucometer 118H 11/17/17 11:18: Glucometer 91 11/17/17 16:27: Glucometer 167H 11/17/17 20:26: Glucometer 148H 11/18/17 06:09: Glucometer 122H Assessment/Plan Assessment and Plan Rt BKA as a consequence of osteomyelitis Daibetic foot ulcer left foot s/p Surgery DPM Type 2 DM Postop constipation improved Postop anemia Obesity Diabetic peripheral neuropathy Plan Continue Pt/OT Team Conference later today-see report for full functional update and POC andeLOS (1) Amputation of right lower extremity below knee Status: Acute Co-Morbidities that are continuing to impact the rehab process: (include details ) ANKUR WALLACE MD Nov 18, 2017 08:35
[2017-11-18] MEDS: POLYETHYLENE GLYCOL 17 GM (MIRALAX) PACK PO SCH ×2 (08:47→20:29)
[2017-11-18] MEDS: SENNA W/DOCUSATE (SENOKOT S) TABLET PO SCH ×2 (08:47→20:29)
--- NOTE | 2017-11-18 10:23 | Physical Therapy Daily Note ---
PT Daily Note-Current Subjective Patient in wheelchair in his room pre tx, agrees to PT, has 5/10 pain in his right leg. Appearance Patient in wheelchair in his room post tx with nurse call, phone, tray, all needs met. Mental Status Patient Orientation: Normal For Age Transfers Functional [place] Measure 0=Not Assessed/NA 4=Minimal Assistance 1=Total Assistance 5=Supervision or Setup 2=Maximal Assistance 6=Modified [place] 3=Moderate Assistance 7=Complete IndependenceIRFPAI Quality Coding Scale 6 Independent with activity with or without an assistive device 5 Patient requires set up or clean up by helper. Patient completes activity by themselves 4 Supervision or touching assist (CGA). [place] provide cues , steadying assist 3 The helper provides less than half the effort to complete the activity 2 The helper provides more than half the effort to complete the activity 1 Dependent. The helper does all the effort to complete an activity 7 Patient refused to complete or attempt activity 9 The patient did not perform the activity before the current illness or injury 88 Not attempted due to Medical conditions or safety concerns Transfers (B, C, W/C) (FIM): 6 Scootin Rollin Roll Left to Right (QC): 6 Supine to/from Sit: 6 Sit to Lying (QC): 6 Chair/Fbe-wi-Sqxlk Xfer(QC): 6 Bed to/from Chair: 6 Car Transfer (QC): 6 Weight Bearing Right Lower Extremity: Right Non Weight Bearing Left Lower Extremity: Left Weight Bearing/Tolerated LLE WEIGHT BEAR ONLY WITH SURGICAL SHOE ON AND ONLY FOR TRANSFERS Wheelchair Training Does the Pt Use a Wheelchair?: Yes Wheelchair (FIM): 6 Distance: 200' Wheelchair Level of Assist: 6 Wheel 50 ft with 2 turns (QC): 6 Wheel 150 ft (QC): 6 Type of Wheelchair: Manual Exercises Supine Ex: Ankle pumps (left leg), Quad Set, Glut sets, Heel Slides (left leg) , Short Arc Quads, Straight leg raise, Hip abd/add Supine Reps: 20 Seated Therapy Exercises: Ankle pumps (left leg), Hip flexion, Hip abd/add ( add with pillow and abd with RTB) Seated Reps: 20 LAQ alternating for 5 min, sidelying right hip abd, flex, ext x20, prone hip stretch for 5 min Treatments bed mobility and transfer training, functional strengthening, ROM, wheelchair mobility Assessment Current Status: Fair Progress patient is mod I with mobility PT Short Term Goals Short Term Goals Time Frame: Nov 20, 2017 Wheelchair (FIM): 6 Wheelchair Distance: 150'x2 PT Guest History Clerk Goals Care Home Goals PT Care Home Goals Time Frame: Dec 04, 2017 Transfers (B,C,W/C) (FIM): 6 Sit to Lying (QC): 6 Lying-Sitting on Side/Bed(QC): 6 Sit to Stand (QC): 6 Rollin Roll Left to Right (QC): 6 Chair/Ybd-vk-Vrxdf Xfer(QC): 6 Car Transfer (QC): 6 Wheelchair (FIM): 6 Distance: 400' Wheelchair Level of Assist: 6 Wheel 50 feet with 2 turns (QC: 6 PT Plan Problem List Problem List: Activity Tolerance, Functional Strength, Safety, Balance, Transfer, ROM Treatment/Plan Treatment Plan: Continue Plan of Care Treatment Plan: Bed Mobility, Education, Functional Activity Cesar, Functional Strength, Group Therapy, Safety, Therapeutic Exercise, Transfers Treatment Duration: Dec 04, 2017 Frequency: At least 5 of 7 days/Wk (IRF) Estimated Hrs Per Day: 1.5 hours per day Patient and/or Family Agrees t: Yes Safety Risks/Education Patient Education: Transfer Techniques, Reviewed Precautions, Correct Positioning, W/C Management, Safety Issues Teaching Recipient: Patient Teaching Methods: Demonstration, Discussion Response to Teaching: Reinforcement Needed Time/GCodes Time In: 0915 Time Out: 1015 Total Billed Treatment Time: 60 Total Billed Treatment 1 visit [facility] 10' EX 50' LEX SANTOS PT Nov 18, 2017 10:23
[2017-11-18] MEDS: ENOXAPARIN 40 MG/0.4 ML (LOVENOX) SYR SC SCH (12:45)
--- NOTE | 2017-11-18 15:02 | Therapy Group Daily Note ---
Therapy Daily Group Note Patient Education Topic Other List Below Exercises LE Seated Exercise, UE Exercise Other/Notes Pt maneuvered w/c to OT/PT group in [facility]. Group consisted of introductions (name, place, what do you do for fun at home), socialization, pt led UE/LE seated exercises, education on fatigue and energy conservation. Pt introduced self appropriately and actively listened to peers. Pt communicated with peers and assisted hard of hearing pt's when needed. Pt was able to lead exercises and tolerated other exercises well. Peer asked questions about what others thought about success and how to live a long life. Pt was able to answer question and discussed with peers. After therapy, pt sitting in w/c in [facility]. All needs met. Start Time: 13:00 Stop Time: 14:05 Total Billed Treatment Time: 65 Total Billed Treatment 1-GRP SOO SCHRADER Nov 18, 2017 15:02
[2017-11-18 18:00] VITALS: BP 128/79
[2017-11-18] MEDS: ATORVASTATIN 40 MG (LIPITOR) TABLET PO SCH (20:29)
[2017-11-19] MEDS: HYDROcodone/APAP 10 MG/325 MG (LORTAB) TAB PO PRN ×2 (04:31→22:39)
[2017-11-19 05:08] VITALS: BP 102/68
[2017-11-19] MEDS: inSUlin ASPART (NovoLOG) 1 UNIT/0.01 ML (CHARGE PER UNIT) SC SCH ×4 (06:21→21:25)
[2017-11-19] MEDS: CALCIUM CARB + VIT D 600 MG (CALCARB + D) TAB PO SCH (06:23)
[2017-11-19] MEDS: ASCORBIC ACID (VIT C) 500 MG TABLET PO SCH (06:23)
[2017-11-19] MEDS: metFORMIN 500 MG (GLUCOPHAGE) TAB PO SCH ×2 (06:23→17:09)
[2017-11-19] MEDS: AUGMENTIN 875 MG TAB (AMOXICILLIN/CLAVULANATE) PO SCH (06:23)
[2017-11-19] MEDS: MAGNESIUM OXIDE (MAG-OX)400 MG TAB PO SCH (06:23)
[2017-11-19] MEDS: MULTIVIT W/MINERALS TAB (THERAGRAN M) PO SCH (06:23)
--- NOTE | 2017-11-19 07:54 | PM & R (SOAP) Progress Note ---
Subjective This was a face to face visit with the patient. Date Seen by Provider: Nov 19, 2017 Time Seen by Provider: 07:30 Subjective/Events-last exam Patient was seen in his room Patient Modified for transfers.Progressing well with therapies pain well controlled Review of Systems Musculoskeletal: leg pain Objective Physician Exam Last Set of Vital Signs Vital Signs Date Time Temp Pulse Resp B/P (MAP) Pulse Ox O2 Delivery O2 Flow Rate FiO2 11/19/17 05:08 97.9 72 18 102/68 (79) 98 Room Air Capillary Refill : I&O Intake and Output 11/19/17 00:00 Intake Total 4490 ml Output Total 7400 ml Balance -2910 ml Intake Oral 4490 ml Output Urine Total 7400 ml # Bowel Movements 1 General: Alert, Oriented X3, Cooperative, No Acute Distress HEENT: Atraumatic, PERRLA, EOMI, Mucous Memb Moist/[place] Neck: Supple, No JVD Lungs: Clear to Auscultation Heart: Regular Rate Abdomen: Normal Bowel Sounds, Soft, No Tenderness, Other (RT BKA floyd wrapped Left foot in kerlex and dressing) Neuro: Other (Good strength BU LIMBS Fair +good- At hips) Results Lab Data Laboratory Tests 11/16/17 11:36: Glucometer 90 11/16/17 17:15: Glucometer 105 11/16/17 20:43: Glucometer 174H 11/17/17 04:57: Glucometer 118H 11/17/17 11:18: Glucometer 91 11/17/17 16:27: Glucometer 167H 11/17/17 20:26: Glucometer 148H 11/18/17 06:09: Glucometer 122H 11/18/17 10:57: Glucometer 93 11/18/17 15:33: Glucometer 140H 11/18/17 20:21: Glucometer 221H 11/18/17 21:32: Glucometer 188H 11/19/17 05:32: Glucometer 118H Assessment/Plan Assessment and Plan 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
[2017-11-19] MEDS: ASPIRIN E.C. 325 MG (ECOTRIN) TABLET PO SCH (08:28)
[2017-11-19] MEDS: GABAPENTIN 300 MG (NEURONTIN) CAP PO SCH ×2 (08:29→21:11)
[2017-11-19] MEDS: POLYETHYLENE GLYCOL 17 GM (MIRALAX) PACK PO SCH ×2 (08:29→21:11)
[2017-11-19] MEDS: SENNA W/DOCUSATE (SENOKOT S) TABLET PO SCH ×2 (08:29→21:11)
--- NOTE | 2017-11-19 09:58 | Physical Therapy Daily Note ---
PT Daily Note-Current Subjective Patient in wheelchair at bedside pre tx, agrees to PT, has pain of 10/10 in right leg. Appearance Patient in wheelchair post tx,he is mod I in his room. Mental Status Patient Orientation: Normal For Age Transfers Functional [place] Measure 0=Not Assessed/NA 4=Minimal Assistance 1=Total Assistance 5=Supervision or Setup 2=Maximal Assistance 6=Modified [place] 3=Moderate Assistance 7=Complete IndependenceIRFPAI Quality Coding Scale 6 Independent with activity with or without an assistive device 5 Patient requires set up or clean up by helper. Patient completes activity by themselves 4 Supervision or touching assist (CGA). [place] provide cues , steadying assist 3 The helper provides less than half the effort to complete the activity 2 The helper provides more than half the effort to complete the activity 1 Dependent. The helper does all the effort to complete an activity 7 Patient refused to complete or attempt activity 9 The patient did not perform the activity before the current illness or injury 88 Not attempted due to Medical conditions or safety concerns Transfers (B, C, W/C) (FIM): 6 Bed to/from Chair: 6 Weight Bearing Right Lower Extremity: Right Non Weight Bearing Left Lower Extremity: Left Weight Bearing/Tolerated LLE WEIGHT BEAR ONLY WITH SURGICAL SHOE ON AND ONLY FOR TRANSFERS Wheelchair Training Does the Pt Use a Wheelchair?: Yes Wheelchair (FIM): 6 Distance: 200'x2 Type of Wheelchair: Manual Exercises Supine Ex: Ankle pumps (left side), Quad Set, Glut sets, Heel Slides, Straight leg raise, Hip abd/add Supine Reps: 20 side lying right hip flex, abd, ext x20, prone hip stretch for 5 min NuStep Minutes: 15 NuStep Workload: 1 (no resistance in order to comply with weight bearing status on left leg, ROM) Treatments transfers, functional strengthening, ROM Assessment Current Status: Fair Progress patient is mod I with wheelchair mobility and transfers PT Short Term Goals Short Term Goals Time Frame: Nov 20, 2017 Wheelchair (FIM): 6 Wheelchair Distance: 200' PT Front End Developer Javascript Html Css Goals Front End Developer Javascript Html Css Goals PT Front End Developer Javascript Html Css Goals Time Frame: Dec 04, 2017 Transfers (B,C,W/C) (FIM): 6 Sit to Lying (QC): 6 Lying-Sitting on Side/Bed(QC): 6 Sit to Stand (QC): 6 Rollin Roll Left to Right (QC): 6 Chair/Jna-oo-Hlwmg Xfer(QC): 6 Car Transfer (QC): 6 Wheelchair (FIM): 6 Distance: 400' Wheelchair Level of Assist: 6 Wheel 50 feet with 2 turns (QC: 6 PT Plan Problem List Problem List: Activity Tolerance, Functional Strength, Safety, Balance, Transfer, ROM Treatment/Plan Treatment Plan: Continue Plan of Care Treatment Plan: Bed Mobility, Education, Functional Activity Cesar, Functional Strength, Group Therapy, Safety, Therapeutic Exercise, Transfers Treatment Duration: Dec 04, 2017 Frequency: At least 5 of 7 days/Wk (IRF) Estimated Hrs Per Day: 1.5 hours per day Patient and/or Family Agrees t: Yes Safety Risks/Education Patient Education: Transfer Techniques, Reviewed Precautions, Correct Positioning, W/C Management, Safety Issues Teaching Recipient: Patient Teaching Methods: Demonstration, Discussion Response to Teaching: Reinforcement Needed Time/GCodes Time In: 0900 Time Out: 1000 Total Billed Treatment Time: 60 Total Billed Treatment 1 visit [facility] 10' EX 50' LEX SANTOS PT Nov 19, 2017 09:58
--- NOTE | 2017-11-19 11:51 | Occupational Ther Daily Note ---
OT Current Status-Daily Note Subjective Pt alert, sitting in w/c. Pt agrees to therapy. No c/o pain. Mental Status/Objective Patient Orientation: Person, Place, Time, Situation Functional [place] Measure 0=Not Assessed/NA 4=Minimal Assistance 1=Total Assistance 5=Supervision or Setup 2=Maximal Assistance 6=Modified [place] 3=Moderate Assistance 7=Complete [place] ADL-Treatment Functional [place] Measure 0=Not Assessed/NA 4=Minimal Assistance 1=Total Assistance 5=Supervision or Setup 2=Maximal Assistance 6=Modified [place] 3=Moderate Assistance 7=Complete IndependenceIRFPAI Quality Coding Scale 6 Independent with activity with or without an assistive device 5 Patient requires set up or clean up by helper. Patient completes activity by themselves 4 Supervision or touching assist (CGA). [place] provide cues , steadying assist 3 The helper provides less than half the effort to complete the activity 2 The helper provides more than half the effort to complete the activity 1 Dependent. The helper does all the effort to complete an activity 7 Patient refused to complete or attempt activity 9 The patient did not perform the activity before the current illness or injury 88 Not attempted due to Medical conditions or safety concerns Grooming (FIM): 6 (Sitting in w/c, pt able to complete by self.) Oral Hygiene (QC): 6 Bathing (FIM): 6 (Using shower bench, hand held shower and grabbar pt able to complete by self.) Shower/Bathe Self (QC): 6 Upper Body (FIM): 6 (Retrieves with w/c, completes dressing by self.) Upper Body Dressing (QC): 6 (Retrieves with w/c, completes dressing by self.) Lower Body Dressing (FIM): 6 (Retrieves with w/c, completes dressing by self.) Lower Body Dressing (QC): 6 On/Off Footwear (QC): 6 Shower Transfer(FIM): 6 (Completes by self using w/c, shower bench and grabbar. ) Other Treatment Pt completes UE exercises to increase strength and activity tolerance for daily functional tasks. UE arm bike 15 min duration at 40 butler resistance. Wrist exercises with 4# wt, 30 reps. Pinch/road driver exercises with resistance clothes pins and hard theraputty. Pt tolerated well. After therapy, pt sitting in w/c with call light/phone in reach. All needs met in room. OT Short Term Goals Short Term Goals Time Frame: Nov 20, 2017 Grooming(FIM): 6 Toileting(FIM): 6 Toilet/Commode Transfer(FIM): 6 Additional Short Term Goals: 1-Demonstrate ADL Tasks, 2-Verbalize Understanding , 3-ImproveStrength/Cesar 1=Demonstrate adherence to instructed precautions during ADL tasks. 2=Patient will verbalize/demonstrate understanding of assistive devices/ modifications for ADL. 3=Patient will improve strength/tolerance for activity to enable patient to perform ADL's. OT Freight Dispatcher Goals Intermediate Goals Time Frame: Dec 04, 2017 Eating (FIM): 7 Eating (QC): 6 Groomin Oral Hygiene (QC): 6 Bathing(FIM): 6 Shower/Bathe Self (QC): 6 Upper Body Dressing(FIM): 6 Upper Body Dressing (QC): 6 Lower Body Dressing(FIM): 6 Lower Body Dressing (QC): 6 On/Off Footwear (QC): 6 Toileting(FIM): 6 Toileting Hygiene (QC): 6 Toilet/Commode Transfer(FIM): 6 Toilet/Commode Transfer (QC): 6 Shower Transfer(FIM): 6 Additional Goals: 1-Demonstrate ADL Tasks, 2-Verbalize Understanding, 3- ImproveStrength/Cesar 1=Demonstrate adherence to instructed precautions during ADL tasks. 2=Patient will verbalize/demonstrate understanding of assistive devices/ modifications for ADL. 3=Patient will improve strength/tolerance for activity to enable patient to perform ADL's. OT Education/Plan Problem List/Assessment Pt would benefit from skilled OT to increase his independence in basic self care to allow him to safely return home Discharge Recommendations Plan/Recommendations: Continue POC Treatment Plan/Plan of Care Patient would benefit from OT for education, treatment and training to promote independence in ADL's, mobility, safety and/or upper extremity function for ADL' s. Plan of Care: ADL Retraining, Functional Mobility, Group Exercise/Act as Ind ( education, exercise, functional activity, activity tolerance, socialization) Treatment Duration: Dec 04, 2017 Frequency: At least 5 of 7 days/Wk (IRF) Estimated Hrs Per Day: 1.5 hours per day Agreement: Yes Rehab Potential: Good Time/GCodes Start Time: 10:15 Stop Time: 11:45 Total Time Billed (hr/min): 90 Billed Treatment Time 1 visit-EX 4 (60 min) ADL 2 (30 min) SOO SCHRADER Nov 19, 2017 11:50
--- NOTE | 2017-11-19 13:28 | Occupational Ther Daily Note ---
OT Current Status-Daily Note Subjective LATE ENTRY 11/18/2017 Pt alert, sitting in w/c. Agrees to therapy. No c/o pain. Mental Status/Objective Patient Orientation: Person, Place, Time, Situation Functional [place] Measure 0=Not Assessed/NA 4=Minimal Assistance 1=Total Assistance 5=Supervision or Setup 2=Maximal Assistance 6=Modified [place] 3=Moderate Assistance 7=Complete [place] ADL-Treatment Functional [place] Measure 0=Not Assessed/NA 4=Minimal Assistance 1=Total Assistance 5=Supervision or Setup 2=Maximal Assistance 6=Modified [place] 3=Moderate Assistance 7=Complete IndependenceIRFPAI Quality Coding Scale 6 Independent with activity with or without an assistive device 5 Patient requires set up or clean up by helper. Patient completes activity by themselves 4 Supervision or touching assist (CGA). [place] provide cues , steadying assist 3 The helper provides less than half the effort to complete the activity 2 The helper provides more than half the effort to complete the activity 1 Dependent. The helper does all the effort to complete an activity 7 Patient refused to complete or attempt activity 9 The patient did not perform the activity before the current illness or injury 88 Not attempted due to Medical conditions or safety concerns Eating (FIM): 7 (Able to complete eating by self.) Eating (QC): 6 Grooming (FIM): 6 (Sitting in w/c, pt able to complete by self.) Oral Hygiene (QC): 6 Bathing (FIM): 6 (Using shower bench, grabbar and hand held shower pt able to complete by self.) Shower/Bathe Self (QC): 6 Upper Body (FIM): 6 (Retrieves at w/c level. Dressing completed by self.) Upper Body Dressing (QC): 6 Lower Body Dressing (FIM): 6 (Retrieves at w/c level. Dressing completed by self.) Lower Body Dressing (QC): 6 On/Off Footwear (QC): 6 Toileting (FIM): 6 (Completes by self using w/c, BSC and grabbars.) Toileting Hygiene (QC): 6 Transfers (B, C, W/C) (FIM): 6 Toilet/Commode Transfer (FIM): 6 Toilet Transfer (QC): 6 Shower Transfer(FIM): 6 (Pt completes using w/c, shower bench and grabbars.) Other Treatment Pt completes UE exercises with arm bike, 6# hand wt and medium resistance theraband to increase strength and activity tolerance for daily functional tasks. Arm bike 15 min at 35 butler resistance, 8 UE exercises, 3 sets 10 reps. 4 theraband exercises, 3 sets 10 reps. After therapy, pt lying in bed with call light/phone in reach. All needs met in room. OT Short Term Goals Short Term Goals Time Frame: Nov 20, 2017 Grooming(FIM): 6 Toileting(FIM): 6 Toilet/Commode Transfer(FIM): 6 Additional Short Term Goals: 1-Demonstrate ADL Tasks, 2-Verbalize Understanding , 3-ImproveStrength/Cesar 1=Demonstrate adherence to instructed precautions during ADL tasks. 2=Patient will verbalize/demonstrate understanding of assistive devices/ modifications for ADL. 3=Patient will improve strength/tolerance for activity to enable patient to perform ADL's. OT Registered Nurse First Assistant Goals Jail Goals Time Frame: Dec 04, 2017 Eating (FIM): 7 Eating (QC): 6 Groomin Oral Hygiene (QC): 6 Bathing(FIM): 6 Shower/Bathe Self (QC): 6 Upper Body Dressing(FIM): 6 Upper Body Dressing (QC): 6 Lower Body Dressing(FIM): 6 Lower Body Dressing (QC): 6 On/Off Footwear (QC): 6 Toileting(FIM): 6 Toileting Hygiene (QC): 6 Toilet/Commode Transfer(FIM): 6 Toilet/Commode Transfer (QC): 6 Shower Transfer(FIM): 6 Additional Goals: 1-Demonstrate ADL Tasks, 2-Verbalize Understanding, 3- ImproveStrength/Cesar 1=Demonstrate adherence to instructed precautions during ADL tasks. 2=Patient will verbalize/demonstrate understanding of assistive devices/ modifications for ADL. 3=Patient will improve strength/tolerance for activity to enable patient to perform ADL's. OT Education/Plan Problem List/Assessment Pt would benefit from skilled OT to increase his independence in basic self care to allow him to safely return home Discharge Recommendations Plan/Recommendations: Continue POC Treatment Plan/Plan of Care Patient would benefit from OT for education, treatment and training to promote independence in ADL's, mobility, safety and/or upper extremity function for ADL' s. Plan of Care: ADL Retraining, Functional Mobility, Group Exercise/Act as Ind ( education, exercise, functional activity, activity tolerance, socialization) Treatment Duration: Dec 04, 2017 Frequency: At least 5 of 7 days/Wk (IRF) Estimated Hrs Per Day: 1.5 hours per day Agreement: Yes Rehab Potential: Good Time/GCodes Start Time: 10:15 Stop Time: 11:30 Total Time Billed (hr/min): 75 Billed Treatment Time 1 visit-ADL 2 (30 min) EX 4 (60 min) SOO SCHRADER Nov 19, 2017 13:28
[2017-11-19] MEDS: ENOXAPARIN 40 MG/0.4 ML (LOVENOX) SYR SC SCH (13:32)
--- NOTE | 2017-11-19 14:04 | Physical Therapy Daily Note ---
PT Daily Note-Current Subjective Patient in wheelchair pre tx, agrees to PT, has pain of 5/10 in right leg. Patient got his new wheelchair and will be trying it out this afternoon. Appearance Patient in wheelchair post tx with nurse call, phone, tray, all needs met. Mental Status Patient Orientation: Normal For Age Transfers Functional [place] Measure 0=Not Assessed/NA 4=Minimal Assistance 1=Total Assistance 5=Supervision or Setup 2=Maximal Assistance 6=Modified [place] 3=Moderate Assistance 7=Complete IndependenceIRFPAI Quality Coding Scale 6 Independent with activity with or without an assistive device 5 Patient requires set up or clean up by helper. Patient completes activity by themselves 4 Supervision or touching assist (CGA). [place] provide cues , steadying assist 3 The helper provides less than half the effort to complete the activity 2 The helper provides more than half the effort to complete the activity 1 Dependent. The helper does all the effort to complete an activity 7 Patient refused to complete or attempt activity 9 The patient did not perform the activity before the current illness or injury 88 Not attempted due to Medical conditions or safety concerns Weight Bearing Right Lower Extremity: Right Non Weight Bearing Left Lower Extremity: Left Weight Bearing/Tolerated LLE WEIGHT BEAR ONLY WITH SURGICAL SHOE ON AND ONLY FOR TRANSFERS Wheelchair Training Wheelchair (FIM): 6 Distance: 3000' Wheelchair Level of Assist: 6 Type of Wheelchair: Manual Patient propelled a manual wheelchair all over the hospital and outside over community surfaces. He did need help going up a ramp but it was not standard ramp. Treatments wheelchair mobility Assessment Current Status: Fair Progress mod I with wheelchair mobility PT Short Term Goals Short Term Goals Time Frame: Nov 20, 2017 Wheelchair (FIM): 6 Wheelchair Distance: 200'x2 PT Prison Goals Prison Goals PT Prison Goals Time Frame: Dec 04, 2017 Transfers (B,C,W/C) (FIM): 6 Sit to Lying (QC): 6 Lying-Sitting on Side/Bed(QC): 6 Sit to Stand (QC): 6 Rollin Roll Left to Right (QC): 6 Chair/Dca-va-Xdviz Xfer(QC): 6 Car Transfer (QC): 6 Wheelchair (FIM): 6 Distance: 400' Wheelchair Level of Assist: 6 Wheel 50 feet with 2 turns (QC: 6 PT Plan Problem List Problem List: Activity Tolerance, Functional Strength, Safety, Balance, Transfer Treatment/Plan Treatment Plan: Continue Plan of Care Treatment Plan: Bed Mobility, Education, Functional Activity Cesar, Functional Strength, Group Therapy, Safety, Therapeutic Exercise, Transfers Treatment Duration: Dec 04, 2017 Frequency: At least 5 of 7 days/Wk (IRF) Estimated Hrs Per Day: 1.5 hours per day Patient and/or Family Agrees t: Yes Safety Risks/Education Patient Education: Transfer Techniques, Correct Positioning, W/C Management, Safety Issues Teaching Recipient: Patient Teaching Methods: Demonstration, Discussion Response to Teaching: Reinforcement Needed Time/GCodes Time In: 1330 Time Out: 1400 Total Billed Treatment Time: 30 Total Billed Treatment 1 visit [facility] 30' LEX SANTOS PT Nov 19, 2017 14:04
[2017-11-19 16:18] VITALS: BP 96/54
[2017-11-19] MEDS: ATORVASTATIN 40 MG (LIPITOR) TABLET PO SCH (21:11)
[2017-11-20 05:15] VITALS: BP 115/70
[2017-11-20] MEDS: inSUlin ASPART (NovoLOG) 1 UNIT/0.01 ML (CHARGE PER UNIT) SC SCH ×4 (06:04→20:39)
[2017-11-20] MEDS: MULTIVIT W/MINERALS TAB (THERAGRAN M) PO SCH (06:23)
[2017-11-20] MEDS: metFORMIN 500 MG (GLUCOPHAGE) TAB PO SCH ×2 (06:24→16:41)
[2017-11-20] MEDS: CALCIUM CARB + VIT D 600 MG (CALCARB + D) TAB PO SCH (06:24)
[2017-11-20] MEDS: ASCORBIC ACID (VIT C) 500 MG TABLET PO SCH (06:24)
[2017-11-20] MEDS: MAGNESIUM OXIDE (MAG-OX)400 MG TAB PO SCH (06:24)
--- NOTE | 2017-11-20 08:15 | PM & R (SOAP) Progress Note ---
Subjective This was a face to face visit with the patient. Date Seen by Provider: Nov 20, 2017 Time Seen by Provider: 07:45 Subjective/Events-last exam Patient was seen in [facility] this AM.Patient Independent for w/.c propulsion.Still concerned about migrating pain in left breast.Palpated but did not note any abnormality Reassured patient Xray negative. Objective Physician Exam Last Set of Vital Signs Vital Signs Date Time Temp Pulse Resp B/P (MAP) Pulse Ox O2 Delivery O2 Flow Rate FiO2 11/20/17 05:15 97.3 70 18 115/70 (85) 96 Room Air Capillary Refill : I&O Intake and Output 11/20/17 00:00 Intake Total 3450 ml Output Total 2950 ml Balance 500 ml Intake Oral 3450 ml Output Urine Total 2950 ml # Bowel Movements 1 General: Alert, Oriented X3, Cooperative, No Acute Distress HEENT: Atraumatic, PERRLA, EOMI, Mucous Memb Moist/[place] Neck: Supple, No JVD Lungs: Clear to Auscultation Heart: Regular Rate Abdomen: Normal Bowel Sounds, Soft, No Tenderness, Other (RT BKA floyd wrapped Left foot in kerlex and dressing) Neuro: Other (Good strength BU LIMBS Fair +good- At hips) Results Lab Data Laboratory Tests 11/17/17 11:18: Glucometer 91 11/17/17 16:27: Glucometer 167H 11/17/17 20:26: Glucometer 148H 11/18/17 06:09: Glucometer 122H 11/18/17 10:57: Glucometer 93 11/18/17 15:33: Glucometer 140H 11/18/17 20:21: Glucometer 221H 11/18/17 21:32: Glucometer 188H 11/19/17 05:32: Glucometer 118H 11/19/17 11:05: Glucometer 82 11/19/17 16:16: Glucometer 175H 11/19/17 20:40: Glucometer 183H 11/20/17 05:28: Glucometer 126H Assessment/Plan Assessment and Plan Rt BKA as a consequence of osteomyelitis Diabetic foot ulcer left foot s/p surgery DPM DM Postop constipation improved Postop anemia Obesity Diabetic Peripheral neuropathy Plan Continue PT/OT Discharge set tentatively for next week 7-2 or 11-24-17 (1) Amputation of right lower extremity below knee Status: Acute Co-Morbidities that are continuing to impact the rehab process: (include details ) ANKUR WALLACE MD Nov 20, 2017 08:15
[2017-11-20] MEDS: POLYETHYLENE GLYCOL 17 GM (MIRALAX) PACK PO SCH ×2 (08:20→19:56)
[2017-11-20] MEDS: SENNA W/DOCUSATE (SENOKOT S) TABLET PO SCH ×2 (08:20→19:57)
[2017-11-20] MEDS: GABAPENTIN 300 MG (NEURONTIN) CAP PO SCH ×2 (08:20→20:48)
[2017-11-20] MEDS: ASPIRIN E.C. 325 MG (ECOTRIN) TABLET PO SCH (08:20)
--- NOTE | 2017-11-20 09:59 | Physical Therapy Daily Note ---
PT Daily Note-Current Subjective Patient in bed pre tx, agrees to PT, has no complaints of pain at rest. Appearance Patient in wheelchair post tx heading back to his room, patient is mod I in his room. Mental Status Patient Orientation: Normal For Age Transfers Functional [place] Measure 0=Not Assessed/NA 4=Minimal Assistance 1=Total Assistance 5=Supervision or Setup 2=Maximal Assistance 6=Modified [place] 3=Moderate Assistance 7=Complete IndependenceIRFPAI Quality Coding Scale 6 Independent with activity with or without an assistive device 5 Patient requires set up or clean up by helper. Patient completes activity by themselves 4 Supervision or touching assist (CGA). [place] provide cues , steadying assist 3 The helper provides less than half the effort to complete the activity 2 The helper provides more than half the effort to complete the activity 1 Dependent. The helper does all the effort to complete an activity 7 Patient refused to complete or attempt activity 9 The patient did not perform the activity before the current illness or injury 88 Not attempted due to Medical conditions or safety concerns Transfers (B, C, W/C) (FIM): 6 Scootin Rollin Supine to/from Sit: 6 Sit to/from Stand: 6 Bed to/from Chair: 6 Weight Bearing Right Lower Extremity: Right Non Weight Bearing Left Lower Extremity: Left Weight Bearing/Tolerated LLE WEIGHT BEAR ONLY WITH SURGICAL SHOE ON AND ONLY FOR TRANSFERS Exercises LAQ alternating for 5 min with 2# ankle weight on the left, sidelying hip abd, flex, ext x20, prone 5 min hip stretch NuStep Minutes: 15 NuStep Workload: 1 (No resistance to comply with weight bearing status on the left side, ROM) Treatments functional strengthening, ROM, transfers Assessment Current Status: Fair Progress patient mod I with mobility PT Short Term Goals Short Term Goals Time Frame: Nov 20, 2017 Wheelchair (FIM): 6 Wheelchair Distance: 3000' PT Fdc Goals [employer] Goals PT Fdc Goals Time Frame: Dec 04, 2017 Transfers (B,C,W/C) (FIM): 6 Sit to Lying (QC): 6 Lying-Sitting on Side/Bed(QC): 6 Sit to Stand (QC): 6 Rollin Roll Left to Right (QC): 6 Chair/Lrh-cq-Hdggl Xfer(QC): 6 Car Transfer (QC): 6 Wheelchair (FIM): 6 Distance: 400' Wheelchair Level of Assist: 6 Wheel 50 feet with 2 turns (QC: 6 PT Plan Problem List Problem List: Activity Tolerance, Functional Strength, Safety, Balance, Gait, Transfer, ROM Treatment/Plan Treatment Plan: Continue Plan of Care Treatment Plan: Bed Mobility, Education, Functional Activity Cesar, Functional Strength, Group Therapy, Safety, Therapeutic Exercise, Transfers Treatment Duration: Dec 04, 2017 Frequency: At least 5 of 7 days/Wk (IRF) Estimated Hrs Per Day: 1.5 hours per day Patient and/or Family Agrees t: Yes Safety Risks/Education Patient Education: Transfer Techniques, Correct Positioning, Safety Issues Teaching Recipient: Patient Teaching Methods: Demonstration, Discussion Response to Teaching: Reinforcement Needed Time/GCodes Time In: 0900 Time Out: 1000 Total Billed Treatment Time: 60 Total Billed Treatment 1 visit [facility] 10' EX 50' LEX SANTOS PT Nov 20, 2017 09:59
--- NOTE | 2017-11-20 10:30 | Occupational Ther Daily Note ---
OT Current Status-Daily Note Subjective Pt alert lying in bed. Pt agrees to therapy. No c/o pain. Mental Status/Objective Patient Orientation: Person, Place, Time, Situation Functional [place] Measure 0=Not Assessed/NA 4=Minimal Assistance 1=Total Assistance 5=Supervision or Setup 2=Maximal Assistance 6=Modified [place] 3=Moderate Assistance 7=Complete [place] ADL-Treatment Functional [place] Measure 0=Not Assessed/NA 4=Minimal Assistance 1=Total Assistance 5=Supervision or Setup 2=Maximal Assistance 6=Modified [place] 3=Moderate Assistance 7=Complete IndependenceIRFPAI Quality Coding Scale 6 Independent with activity with or without an assistive device 5 Patient requires set up or clean up by helper. Patient completes activity by themselves 4 Supervision or touching assist (CGA). [place] provide cues , steadying assist 3 The helper provides less than half the effort to complete the activity 2 The helper provides more than half the effort to complete the activity 1 Dependent. The helper does all the effort to complete an activity 7 Patient refused to complete or attempt activity 9 The patient did not perform the activity before the current illness or injury 88 Not attempted due to Medical conditions or safety concerns Grooming (FIM): 6 (Completes at w/c level by self.) Oral Hygiene (QC): 6 Toileting (FIM): 6 (Using w/c, grabbars and drop-arm commode completes by self. ) Toileting Hygiene (QC): 6 Toilet/Commode Transfer (FIM): 6 Other Treatment Pt completes UE exercises to increase strength and activity tolerance for daily functional tasks. Using 6# hand wts pt completes 5 exercises 2 sets 10 reps. Arm bike 15 min duration 45 butler resistance completed. Medium resistance theraband 3 exercises 3 sets 10 reps. Arm chair pushups on therapy mat 3 sets 10 reps. After therapy, pt sitting in w/c pt maneuvers to room and around [facility]. All needs met OT Short Term Goals Short Term Goals Time Frame: Nov 20, 2017 Grooming(FIM): 6 Toileting(FIM): 6 Toilet/Commode Transfer(FIM): 6 Additional Short Term Goals: 1-Demonstrate ADL Tasks, 2-Verbalize Understanding , 3-ImproveStrength/Cesar 1=Demonstrate adherence to instructed precautions during ADL tasks. 2=Patient will verbalize/demonstrate understanding of assistive devices/ modifications for ADL. 3=Patient will improve strength/tolerance for activity to enable patient to perform ADL's. OT Intermediate Goals Intermediate Goals Time Frame: Dec 04, 2017 Eating (FIM): 7 Eating (QC): 6 Groomin Oral Hygiene (QC): 6 Bathing(FIM): 6 Shower/Bathe Self (QC): 6 Upper Body Dressing(FIM): 6 Upper Body Dressing (QC): 6 Lower Body Dressing(FIM): 6 Lower Body Dressing (QC): 6 On/Off Footwear (QC): 6 Toileting(FIM): 6 Toileting Hygiene (QC): 6 Toilet/Commode Transfer(FIM): 6 Toilet/Commode Transfer (QC): 6 Shower Transfer(FIM): 6 Additional Goals: 1-Demonstrate ADL Tasks, 2-Verbalize Understanding, 3- ImproveStrength/Cesar 1=Demonstrate adherence to instructed precautions during ADL tasks. 2=Patient will verbalize/demonstrate understanding of assistive devices/ modifications for ADL. 3=Patient will improve strength/tolerance for activity to enable patient to perform ADL's. OT Education/Plan Problem List/Assessment Pt would benefit from skilled OT to increase his independence in basic self care to allow him to safely return home Discharge Recommendations Plan/Recommendations: Continue POC Treatment Plan/Plan of Care Patient would benefit from OT for education, treatment and training to promote independence in ADL's, mobility, safety and/or upper extremity function for ADL' s. Plan of Care: ADL Retraining, Functional Mobility, Group Exercise/Act as Ind ( education, exercise, functional activity, activity tolerance, socialization) Treatment Duration: Dec 04, 2017 Frequency: At least 5 of 7 days/Wk (IRF) Estimated Hrs Per Day: 1.5 hours per day Agreement: Yes Rehab Potential: Good Time/GCodes Start Time: 07:00 Stop Time: 08:00 Total Time Billed (hr/min): 60 Billed Treatment Time 1 visit-ADL 1 (20 min) EX 3 (40 min) SOO SCHRADER Nov 20, 2017 10:30
[2017-11-20] MEDS: ENOXAPARIN 40 MG/0.4 ML (LOVENOX) SYR SC SCH (13:08)
--- NOTE | 2017-11-20 14:40 | Therapy Group Daily Note ---
Therapy Daily Group Note Other/Notes Patient participated in group therapy in the common area of rehab. Each patient ambulated or was transported to the common area of rehab and seated at tables in groups. Each patient had to introduce themselves and state where they were from. Each patient then participated in group activities and games that involved critical thinking, spatial awareness, UE ROM, memory, and math. Afterwards, each patient ambulated or was transported back to their room to chair or bed with nurse call, phone, tray, all needs met. Start Time: 13:00 Stop Time: 14:00 Total Billed Treatment Time: 60 Total Billed Treatment 1 visit [facility]P 60' LEX SANTOS PT Nov 20, 2017 14:40
[2017-11-20 16:13] VITALS: BP 127/69
[2017-11-20] MEDS: ATORVASTATIN 40 MG (LIPITOR) TABLET PO SCH (20:48)
[2017-11-20] MEDS: HYDROcodone/APAP 10 MG/325 MG (LORTAB) TAB PO PRN (23:29)
[2017-11-21 05:04] VITALS: BP 120/76
[2017-11-21] MEDS: inSUlin ASPART (NovoLOG) 1 UNIT/0.01 ML (CHARGE PER UNIT) SC SCH ×4 (05:54→20:26)
[2017-11-21] MEDS: ASCORBIC ACID (VIT C) 500 MG TABLET PO SCH (06:25)
[2017-11-21] MEDS: CALCIUM CARB + VIT D 600 MG (CALCARB + D) TAB PO SCH (06:25)
[2017-11-21] MEDS: MULTIVIT W/MINERALS TAB (THERAGRAN M) PO SCH (06:25)
[2017-11-21] MEDS: metFORMIN 500 MG (GLUCOPHAGE) TAB PO SCH ×2 (06:25→17:15)
[2017-11-21] MEDS: MAGNESIUM OXIDE (MAG-OX)400 MG TAB PO SCH (06:25)
--- NOTE | 2017-11-21 08:13 | PM & R (SOAP) Progress Note ---
Subjective This was a face to face visit with the patient. Date Seen by Provider: Nov 21, 2017 Time Seen by Provider: 07:50 Subjective/Events-last exam Patient was seen in his room this AM Patient states interuppted sleep due to pain but received pain pill with relief Review of Systems Musculoskeletal: leg pain Objective Physician Exam Last Set of Vital Signs Vital Signs Date Time Temp Pulse Resp B/P (MAP) Pulse Ox O2 Delivery O2 Flow Rate FiO2 11/21/17 05:04 98.0 65 18 120/76 (91) 96 Room Air Capillary Refill : I&O Intake and Output 11/21/17 00:00 Intake Total 3760 ml Output Total 4775 ml Balance -1015 ml Intake Oral 3760 ml Output Urine Total 4775 ml # Bowel Movements 1 General: Alert, Oriented X3, Cooperative, No Acute Distress HEENT: Atraumatic, PERRLA, EOMI, Mucous Memb Moist/[place] Neck: Supple, No JVD Lungs: Clear to Auscultation Heart: Regular Rate Abdomen: Normal Bowel Sounds, Soft, No Tenderness, Other (RT BKA floyd wrapped Left foot in kerlex and dressing) Neuro: Other (Good strength BU LIMBS Fair +good- At hips) Results Lab Data Laboratory Tests 11/18/17 10:57: Glucometer 93 11/18/17 15:33: Glucometer 140H 11/18/17 20:21: Glucometer 221H 11/18/17 21:32: Glucometer 188H 11/19/17 05:32: Glucometer 118H 11/19/17 11:05: Glucometer 82 11/19/17 16:16: Glucometer 175H 11/19/17 20:40: Glucometer 183H 11/20/17 05:28: Glucometer 126H 11/20/17 11:06: Glucometer 106 11/20/17 16:10: Glucometer 169H 11/20/17 20:16: Glucometer 176H 11/21/17 05:27: Glucometer 120H Assessment/Plan Assessment and Plan 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
[2017-11-21] MEDS: ASPIRIN E.C. 325 MG (ECOTRIN) TABLET PO SCH (08:15)
[2017-11-21] MEDS: GABAPENTIN 300 MG (NEURONTIN) CAP PO SCH ×2 (08:15→21:23)
[2017-11-21] MEDS: SENNA W/DOCUSATE (SENOKOT S) TABLET PO SCH ×2 (08:16→20:26)
[2017-11-21] MEDS ORDERED: HYDR-3820 PO (08:17)
--- NOTE | 2017-11-21 08:52 | Physical Therapy Daily Note ---
PT Daily Note-Current Subjective Pt reports he is on schedule to leave Thursday. He is working on his exercises for the right leg. He received his commode and w/c from medical equipment and wants to exchange them for larger ones. Mental Status Patient Orientation: Normal For Age Comprehension: 7 Expression: 7 Social Interaction: 7 Problem Solvin Memory: 7 Transfers Functional [place] Measure 0=Not Assessed/NA 4=Minimal Assistance 1=Total Assistance 5=Supervision or Setup 2=Maximal Assistance 6=Modified [place] 3=Moderate Assistance 7=Complete IndependenceIRFPAI Quality Coding Scale 6 Independent with activity with or without an assistive device 5 Patient requires set up or clean up by helper. Patient completes activity by themselves 4 Supervision or touching assist (CGA). [place] provide cues , steadying assist 3 The helper provides less than half the effort to complete the activity 2 The helper provides more than half the effort to complete the activity 1 Dependent. The helper does all the effort to complete an activity 7 Patient refused to complete or attempt activity 9 The patient did not perform the activity before the current illness or injury 88 Not attempted due to Medical conditions or safety concerns Transfers (B, C, W/C) (FIM): 6 Scootin Rollin Roll Left to Right (QC): 6 Supine to/from Sit: 7 Sit to/from Stand: 6 Sit to Lying (QC): 6 Sit to Stand (QC): 6 Chair/Hlq-bw-Znmie Xfer(QC): 6 Bed to/from Chair: 6 Car Transfer (QC): 5 Weight Bearing Right Lower Extremity: Right Non Weight Bearing Left Lower Extremity: Left Weight Bearing/Tolerated LLE WEIGHT BEAR ONLY WITH SURGICAL SHOE ON AND ONLY FOR TRANSFERS Gait Training Does the Patient Walk?: No and Walking Goal NOT indicated Gait (FIM): 0 Distance (FIM): 0=does not occure Distance: 0 Wheelchair Training Does the Pt Use a Wheelchair?: Yes Wheelchair (FIM): 6 Distance: 500 Wheelchair Level of Assist: 6 Wheel 50 ft with 2 turns (QC): 6 Wheel 150 ft (QC): 6 Type of Wheelchair: Manual needs assist for non ADA compliant slopes Stair Training Stairs (FIM): 1 1 Step (curb) (QC): 88 4 Steps (QC): 88 12 Steps (QC): 88 Stairs: Pattern: Hops Exercises Supine Ex: Ankle pumps, Quad Set, Glut sets, Knee to chest, Short Arc Quads, Straight leg raise Supine Reps: 10 Assessment Current Status: Good Progress Pt educated on transfers and topics of community mobility from w/c level. Pt has good understanding and is on track for discharge to home. PT Short Term Goals Short Term Goals Time Frame: Nov 20, 2017 Wheelchair (FIM): 6 Wheelchair Distance: 3000' PT Senior Care Goals Director Of Neurology Goals PT Senior Care Goals Time Frame: Dec 04, 2017 Transfers (B,C,W/C) (FIM): 6 Sit to Lying (QC): 6 Lying-Sitting on Side/Bed(QC): 6 Sit to Stand (QC): 6 Rollin Roll Left to Right (QC): 6 Chair/Eps-ei-Gkocb Xfer(QC): 6 Car Transfer (QC): 6 Wheelchair (FIM): 6 Distance: 400' Wheelchair Level of Assist: 6 Wheel 50 feet with 2 turns (QC: 6 PT Plan Treatment/Plan Treatment Plan: Continue Plan of Care Treatment Plan: Bed Mobility, Education, Functional Activity Cesar, Functional Strength, Group Therapy, Safety, Therapeutic Exercise, Transfers Treatment Duration: Dec 04, 2017 Frequency: At least 5 of 7 days/Wk (IRF) Estimated Hrs Per Day: 1.5 hours per day Patient and/or Family Agrees t: Yes Time/GCodes Time In: 815 Time Out: 830 Total Billed Treatment Time: 15 Total Billed Treatment visit, 15 min exercise TRISH MOTA PT Nov 21, 2017 08:52
[2017-11-21] MEDS: POLYETHYLENE GLYCOL 17 GM (MIRALAX) PACK PO SCH ×2 (09:13→20:26)
[2017-11-21] MEDS: ENOXAPARIN 40 MG/0.4 ML (LOVENOX) SYR SC SCH (13:33)
[2017-11-21 18:00] VITALS: BP 126/72
[2017-11-21] MEDS: ATORVASTATIN 40 MG (LIPITOR) TABLET PO SCH (21:23)
[2017-11-21] MEDS: HYDROcodone/APAP 10 MG/325 MG (LORTAB) TAB PO PRN (22:22)
[2017-11-22 06:00] VITALS: BP 119/74
[2017-11-22] MEDS: inSUlin ASPART (NovoLOG) 1 UNIT/0.01 ML (CHARGE PER UNIT) SC SCH ×4 (06:09→20:42)
[2017-11-22] MEDS: metFORMIN 500 MG (GLUCOPHAGE) TAB PO SCH ×2 (06:21→16:28)
[2017-11-22] MEDS: ASCORBIC ACID (VIT C) 500 MG TABLET PO SCH (06:21)
[2017-11-22] MEDS: MULTIVIT W/MINERALS TAB (THERAGRAN M) PO SCH (06:21)
[2017-11-22] MEDS: CALCIUM CARB + VIT D 600 MG (CALCARB + D) TAB PO SCH (06:21)
[2017-11-22] MEDS: MAGNESIUM OXIDE (MAG-OX)400 MG TAB PO SCH (06:21)
[2017-11-22] MEDS: GABAPENTIN 300 MG (NEURONTIN) CAP PO SCH ×2 (08:06→20:45)
[2017-11-22] MEDS: ASPIRIN E.C. 325 MG (ECOTRIN) TABLET PO SCH (08:06)
[2017-11-22] MEDS: POLYETHYLENE GLYCOL 17 GM (MIRALAX) PACK PO SCH ×2 (08:09→20:42)
[2017-11-22] MEDS: SENNA W/DOCUSATE (SENOKOT S) TABLET PO SCH ×2 (08:10→20:43)
[2017-11-22] MEDS: ENOXAPARIN 40 MG/0.4 ML (LOVENOX) SYR SC SCH (12:26)
[2017-11-22 18:01] VITALS: BP 122/77
[2017-11-22] MEDS: ATORVASTATIN 40 MG (LIPITOR) TABLET PO SCH (20:45)
[2017-11-23 05:22] VITALS: BP 102/70
[2017-11-23] MEDS: inSUlin ASPART (NovoLOG) 1 UNIT/0.01 ML (CHARGE PER UNIT) SC SCH ×4 (05:23→20:52)
[2017-11-23] MEDS: CALCIUM CARB + VIT D 600 MG (CALCARB + D) TAB PO SCH (06:14)
[2017-11-23] MEDS: MAGNESIUM OXIDE (MAG-OX)400 MG TAB PO SCH (06:14)
[2017-11-23] MEDS: ASCORBIC ACID (VIT C) 500 MG TABLET PO SCH (06:14)
[2017-11-23] MEDS: metFORMIN 500 MG (GLUCOPHAGE) TAB PO SCH ×2 (06:14→16:43)
[2017-11-23] MEDS: MULTIVIT W/MINERALS TAB (THERAGRAN M) PO SCH (06:14)
[2017-11-23] MEDS: POLYETHYLENE GLYCOL 17 GM (MIRALAX) PACK PO SCH ×2 (08:13→20:38)
[2017-11-23] MEDS: ASPIRIN E.C. 325 MG (ECOTRIN) TABLET PO SCH (08:13)
[2017-11-23] MEDS: GABAPENTIN 300 MG (NEURONTIN) CAP PO SCH ×2 (08:13→20:38)
[2017-11-23] MEDS: SENNA W/DOCUSATE (SENOKOT S) TABLET PO SCH ×2 (08:14→20:53)
--- NOTE | 2017-11-23 10:01 | Physical Therapy Daily Note ---
PT Daily Note-Current Subjective Patient in wheelchair at bedside pre tx, agrees to PT, no complaints of pain. Appearance Patient in wheelchair in therapy gym post tx, has OT soon after PT. Mental Status Patient Orientation: Normal For Age Transfers Functional [place] Measure 0=Not Assessed/NA 4=Minimal Assistance 1=Total Assistance 5=Supervision or Setup 2=Maximal Assistance 6=Modified [place] 3=Moderate Assistance 7=Complete IndependenceIRFPAI Quality Coding Scale 6 Independent with activity with or without an assistive device 5 Patient requires set up or clean up by helper. Patient completes activity by themselves 4 Supervision or touching assist (CGA). [place] provide cues , steadying assist 3 The helper provides less than half the effort to complete the activity 2 The helper provides more than half the effort to complete the activity 1 Dependent. The helper does all the effort to complete an activity 7 Patient refused to complete or attempt activity 9 The patient did not perform the activity before the current illness or injury 88 Not attempted due to Medical conditions or safety concerns Transfers (B, C, W/C) (FIM): 6 Scootin Rollin Roll Left to Right (QC): 6 Supine to/from Sit: 7 Sit to Lying (QC): 6 Chair/Cjx-zv-Qwzae Xfer(QC): 6 Bed to/from Chair: 6 Car Transfer (QC): 6 Patient performs bed mobility with independence, transfers with mod I, car transfer with mod I. Weight Bearing Right Lower Extremity: Right Non Weight Bearing Left Lower Extremity: Left Weight Bearing/Tolerated LLE WEIGHT BEAR ONLY WITH SURGICAL SHOE ON AND ONLY FOR TRANSFERS Wheelchair Training Does the Pt Use a Wheelchair?: Yes Wheelchair (FIM): 6 Distance: 2000' Wheel 50 ft with 2 turns (QC): 6 Wheel 150 ft (QC): 6 Type of Wheelchair: Manual Exercises prone hip stretch for 5 min, sidelying hip flex, ext, abd x20 bilaterally NuStep Minutes: 15 NuStep Workload: 1 (no resistance in order to maintain NWB status on left foot ) Treatments wheelchair mobility, functional strengthening/ROM, bed mobility and transfers Assessment Current Status: Fair Progress Patient is mod I with transfers and wheelchair mobility PT Short Term Goals Short Term Goals Time Frame: Nov 20, 2017 Wheelchair (FIM): 6 Wheelchair Distance: 500 PT Fdc Goals [place] Goals PT [place] Goals Time Frame: Dec 04, 2017 Transfers (B,C,W/C) (FIM): 6 Sit to Lying (QC): 6 Lying-Sitting on Side/Bed(QC): 6 Rollin Roll Left to Right (QC): 6 Chair/Ssh-wn-Fcszw Xfer(QC): 6 Car Transfer (QC): 6 Wheelchair (FIM): 6 Distance: 2000' Wheelchair Level of Assist: 6 Wheel 50 feet with 2 turns (QC: 6 PT Plan Problem List Problem List: Activity Tolerance, Functional Strength, Safety, Balance, Transfer, Bed Mobility, ROM Treatment/Plan Treatment Plan: Continue Plan of Care Treatment Plan: Bed Mobility, Education, Functional Activity Cesar, Functional Strength, Group Therapy, Safety, Therapeutic Exercise, Transfers Treatment Duration: Dec 04, 2017 Frequency: At least 5 of 7 days/Wk (IRF) Estimated Hrs Per Day: 1.5 hours per day Patient and/or Family Agrees t: Yes Safety Risks/Education Patient Education: Transfer Techniques, Reviewed Precautions, Correct Positioning, W/C Management, Safety Issues Teaching Recipient: Patient Teaching Methods: Demonstration, Discussion Response to Teaching: Reinforcement Needed Time/GCodes Time In: 0900 Time Out: 1000 Total Billed Treatment Time: 60 Total Billed Treatment 1 visit [facility] 15' FA 15' EX 30' LEX SANTOS PT Nov 23, 2017 10:01
--- NOTE | 2017-11-23 10:40 | Occupational Ther Daily Note ---
OT Current Status-Daily Note Subjective Pt alert, sitting in w/c. Pt agrees to therapy. No c/o pain at this time. Pt may discharge today or tomorrow. Mental Status/Objective Patient Orientation: Person, Place, Time, Situation Functional [place] Measure 0=Not Assessed/NA 4=Minimal Assistance 1=Total Assistance 5=Supervision or Setup 2=Maximal Assistance 6=Modified [place] 3=Moderate Assistance 7=Complete [place] ADL-Treatment Functional [place] Measure 0=Not Assessed/NA 4=Minimal Assistance 1=Total Assistance 5=Supervision or Setup 2=Maximal Assistance 6=Modified [place] 3=Moderate Assistance 7=Complete IndependenceIRFPAI Quality Coding Scale 6 Independent with activity with or without an assistive device 5 Patient requires set up or clean up by helper. Patient completes activity by themselves 4 Supervision or touching assist (CGA). [place] provide cues , steadying assist 3 The helper provides less than half the effort to complete the activity 2 The helper provides more than half the effort to complete the activity 1 Dependent. The helper does all the effort to complete an activity 7 Patient refused to complete or attempt activity 9 The patient did not perform the activity before the current illness or injury 88 Not attempted due to Medical conditions or safety concerns Eating (FIM): 7 (Pt opens containers/packages by self. Uses regular utensils to feeds self.) Eating (QC): 6 Grooming (FIM): 6 (Sitting in w/c, pt able to complete all grooming by self.) Oral Hygiene (QC): 6 Bathing (FIM): 6 (Using shower bench, hand held shower and grabbar pt able to complete by self. Wraps LE's to keep dry by self.) Bathing Location: L Arm, R Arm, L Upper Leg, R Upper Leg, L Lower Leg ( including foot), R Lower Leg (including foot), Chest, Abdomen, Buttocks, Perineal Area Shower/Bathe Self (QC): 6 Upper Body (FIM): 6 (Retrieves clothing via w/c then dresses self.) Upper Body Dressing (QC): 6 Lower Body Dressing (FIM): 6 (Retrieves clothing via w/c then dresses self.) Lower Body Dressing (QC): 6 On/Off Footwear (QC): 6 Toileting (FIM): 6 (Using droparm commode, grabbars and w/c pt able to complete by self.) Toileting Hygiene (QC): 6 Transfers (B, C, W/C) (FIM): 6 Toilet/Commode Transfer (FIM): 6 (Using droparm commode, grabbars and w/c pt able to complete by self.) Toilet Transfer (QC): 6 Tub Transfer(FIM): 6 Shower Transfer(FIM): 6 (Using w/c, shower bench and grabbars pt able to complete by self.) Other Treatment Pt transferred to therapy mat to complete 30 arm chair pushups, did not raise buttocks off of mat table. Stabilizing lower body, pt complete sit ups 3 sets 10 reps. Arm bike completed 15 min duration 50 butler resistance to increase strength and activity tolerance for daily functional tasks. After therapy, pt lying in bed with call light/phone in reach. All needs met in room. OT Short Term Goals Short Term Goals Time Frame: Nov 20, 2017 Grooming(FIM): 6 Toileting(FIM): 6 Toilet/Commode Transfer(FIM): 6 Additional Short Term Goals: 1-Demonstrate ADL Tasks, 2-Verbalize Understanding , 3-ImproveStrength/Cesar 1=Demonstrate adherence to instructed precautions during ADL tasks. 2=Patient will verbalize/demonstrate understanding of assistive devices/ modifications for ADL. 3=Patient will improve strength/tolerance for activity to enable patient to perform ADL's. OT Executive Compensation Analyst Goals Care Home Goals Time Frame: Dec 04, 2017 Eating (FIM): 7 (11/23/2017) Eating (QC): 6 (11/23/2017) Groomin (11/23/2017) Oral Hygiene (QC): 6 (11/23/2017) Bathing(FIM): 6 (11/23/2017) Shower/Bathe Self (QC): 6 (11/23/2017) Upper Body Dressing(FIM): 6 (11/23/2017) Upper Body Dressing (QC): 6 (11/23/2017) Lower Body Dressing(FIM): 6 (11/23/2017) Lower Body Dressing (QC): 6 (11/23/2017) On/Off Footwear (QC): 6 (11/23/2017) Toileting(FIM): 6 (11/23/2017) Toileting Hygiene (QC): 6 (11/23/2017) Toilet/Commode Transfer(FIM): 6 (11/23/2017) Toilet/Commode Transfer (QC): 6 (11/23/2017) Shower Transfer(FIM): 6 (11/23/2017) Additional Goals: 1-Demonstrate ADL Tasks, 2-Verbalize Understanding, 3- ImproveStrength/Cesar 1=Demonstrate adherence to instructed precautions during ADL tasks. 2=Patient will verbalize/demonstrate understanding of assistive devices/ modifications for ADL. 3=Patient will improve strength/tolerance for activity to enable patient to perform ADL's. OT Education/Plan Problem List/Assessment Pt would benefit from skilled OT to increase his independence in basic self care to allow him to safely return home Discharge Recommendations Plan/Recommendations: Continue POC Treatment Plan/Plan of Care Patient would benefit from OT for education, treatment and training to promote independence in ADL's, mobility, safety and/or upper extremity function for ADL' s. Plan of Care: ADL Retraining, Functional Mobility, Group Exercise/Act as Ind ( education, exercise, functional activity, activity tolerance, socialization) Treatment Duration: Dec 04, 2017 Frequency: At least 5 of 7 days/Wk (IRF) Estimated Hrs Per Day: 1.5 hours per day Agreement: Yes Rehab Potential: Good Time/GCodes Start Time: 10:00 Stop Time: 11:00 Total Time Billed (hr/min): 60 Billed Treatment Time 1 visit-EX 2 (30 min) ADL 2 (30 min) SOO SCHRADER Nov 23, 2017 10:40
[2017-11-23] MEDS: ENOXAPARIN 40 MG/0.4 ML (LOVENOX) SYR SC SCH (13:05)
--- NOTE | 2017-11-23 14:38 | Therapy Group Daily Note ---
Therapy Daily Group Note Patient Education Topic Other List Below (Memory) Exercises LE Seated Exercise, UE Exercise Other/Notes Pt maneuvered w/c to OT/PT group at [facility]. Group consisted of introductions (name, place living, brain exercise activity), socialization, peer led UE/LE seated exercises, memory strategies/education and memory activities. Pt able to appropriately introduced self and actively listened to peers. Pt was able to lead one exercises and complete others well. Pt verbalized understanding of memory strategies and education. Pt was able to complete memory activity appropriately and effectively. After group, pt in w/c maneuvering around [facility]. All needs met. Start Time: 13:00 Stop Time: 14:10 Total Billed Treatment Time: 70 Total Billed Treatment 1-GRP SOO SCHRADER Nov 23, 2017 14:38
[2017-11-23 18:10] VITALS: BP 113/72
--- NOTE | 2017-11-23 19:01 | PM & R (SOAP) Progress Note ---
Subjective This was a face to face visit with the patient. Date Seen by Provider: Nov 23, 2017 Time Seen by Provider: 18:50 Subjective/Events-last exam Patient was seen in his room this evening Patient modified Independent for transfers Discussed case with RN Patients discharge postponed til tomorrow Objective Physician Exam Last Set of Vital Signs Vital Signs Date Time Temp Pulse Resp B/P (MAP) Pulse Ox O2 Delivery O2 Flow Rate FiO2 11/23/17 18:10 98.0 65 18 113/72 (86) 96 Room Air Capillary Refill : I&O Intake and Output 11/23/17 00:00 Intake Total 1910 ml Output Total 4200 ml Balance -2290 ml Intake Oral 1910 ml Output Urine Total 4200 ml # Bowel Movements 1 General: Alert, Oriented X3, Cooperative, No Acute Distress HEENT: Atraumatic, PERRLA, EOMI, Mucous Memb Moist/[place] Neck: Supple, No JVD Lungs: Clear to Auscultation Heart: Regular Rate Abdomen: Normal Bowel Sounds, Soft, No Tenderness, Other (RT BKA floyd wrapped Left foot in kerlex and dressing) Neuro: Other (Good strength BU LIMBS Fair +good- At hips) Results Lab Data Laboratory Tests 11/20/17 20:16: Glucometer 176H 11/21/17 05:27: Glucometer 120H 11/21/17 11:00: Glucometer 112H 11/21/17 15:41: Glucometer 125H 11/21/17 20:25: Glucometer 169H 11/22/17 06:08: Glucometer 126H 11/22/17 11:02: Glucometer 170H 11/22/17 15:20: Glucometer 225H 11/22/17 16:35: Glucometer 204H 11/22/17 20:40: Glucometer 190H 11/23/17 05:08: Glucometer 115H 11/23/17 10:56: Glucometer 98 11/23/17 16:42: Glucometer 119H Assessment/Plan Assessment and Plan 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
[2017-11-23] MEDS: ATORVASTATIN 40 MG (LIPITOR) TABLET PO SCH (20:38)
[2017-11-24 06:00] VITALS: BP 115/75
[2017-11-24] MEDS: inSUlin ASPART (NovoLOG) 1 UNIT/0.01 ML (CHARGE PER UNIT) SC SCH ×3 (06:24→16:13)
[2017-11-24] MEDS: ASCORBIC ACID (VIT C) 500 MG TABLET PO SCH (06:25)
[2017-11-24] MEDS: metFORMIN 500 MG (GLUCOPHAGE) TAB PO SCH ×2 (06:25→16:17)
[2017-11-24] MEDS: CALCIUM CARB + VIT D 600 MG (CALCARB + D) TAB PO SCH (06:25)
[2017-11-24] MEDS: MULTIVIT W/MINERALS TAB (THERAGRAN M) PO SCH (06:25)
[2017-11-24] MEDS: MAGNESIUM OXIDE (MAG-OX)400 MG TAB PO SCH (06:25)
--- NOTE | 2017-11-24 07:12 | PM & R (SOAP) Progress Note ---
Subjective This was a face to face visit with the patient. Date Seen by Provider: Nov 24, 2017 Time Seen by Provider: 06:50 Subjective/Events-last exam Patient was seen in his room this AM All set for discharge today Current meds reviewed Objective Physician Exam Last Set of Vital Signs Vital Signs Date Time Temp Pulse Resp B/P (MAP) Pulse Ox O2 Delivery O2 Flow Rate FiO2 11/23/17 21:00 Room Air 11/23/17 18:10 98.0 65 18 113/72 (86) 96 Capillary Refill : I&O Intake and Output 11/24/17 00:00 Intake Total 4080 ml Output Total 5300 ml Balance -1220 ml Intake Oral 4080 ml Output Urine Total 5300 ml # Bowel Movements 1 General: Alert, Oriented X3, Cooperative, No Acute Distress HEENT: Atraumatic, PERRLA, EOMI, Mucous Memb Moist/[place] Neck: Supple, No JVD Lungs: Clear to Auscultation Heart: Regular Rate Abdomen: Normal Bowel Sounds, Soft, No Tenderness, Other (RT BKA floyd wrapped Left foot in kerlex and dressing) Neuro: Other (Good strength BU LIMBS Fair +good- At hips) Results Lab Data Laboratory Tests 11/21/17 11:00: Glucometer 112H 11/21/17 15:41: Glucometer 125H 11/21/17 20:25: Glucometer 169H 11/22/17 06:08: Glucometer 126H 11/22/17 11:02: Glucometer 170H 11/22/17 15:20: Glucometer 225H 11/22/17 16:35: Glucometer 204H 11/22/17 20:40: Glucometer 190H 11/23/17 05:08: Glucometer 115H 11/23/17 10:56: Glucometer 98 11/23/17 16:42: Glucometer 119H 11/23/17 20:47: Glucometer 200H 11/24/17 06:23: Glucometer 144H Assessment/Plan Assessment and Plan Home today with SO and HHC See orders F/U with PCP and ortho and DPM (1) Amputation of right lower extremity below knee Status: Acute Co-Morbidities that are continuing to impact the rehab process: (include details ) ANKUR WALLACE MD Nov 24, 2017 07:12
[2017-11-24] MEDS: GABAPENTIN 300 MG (NEURONTIN) CAP PO SCH (08:23)
[2017-11-24] MEDS: ASPIRIN E.C. 325 MG (ECOTRIN) TABLET PO SCH (08:23)
[2017-11-24] MEDS: SENNA W/DOCUSATE (SENOKOT S) TABLET PO SCH (08:23)
[2017-11-24] MEDS: POLYETHYLENE GLYCOL 17 GM (MIRALAX) PACK PO SCH (08:24)
--- NOTE | 2017-11-24 09:09 | D/C HH Face to Face Order ---
D/C Face to Face Orders Instructions for Patient Patient Instructions/FollowUp: Follow-up Appointments: Dr. 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 Vargas for worsening diabetic foot ulcer of the right foot. Currently modified independent for transfers (slide board), as well as modified independent for wheelchair mobility. At risk for DVT; diabetic neuropathy; obesity; type II DM with complication; osteomyelitis; cellulitis. Goals for Patient: [place] with ADLs. Regain his ability to ambulate with the assistance of a prosthetic. Patient Data-Allergies,Ht & Wt Patient Allergies: Coded Allergies: No Known Drug Allergies (Unverified , 10/04/14) Height (Feet): 6 Height (Inches): 7.00 Weight (Pounds): 276 Weight (Ounces): 5.0 Home Health Need/Face to Face Date of Face to Face: Nov 24, 2017 Clinical Findings: Instability, Muscle weakness, Unsteady gait I have seen Pt [id number]: Yes Discharged To: Home Diagnosis/Conditions: Right BKA Phantom Limb Pain Syndrome Type 2 Diabetes with Diabetic Polyneuropathy Problems/Diagnosis/Condition: (1) Amputation of right lower extremity below knee Patient is Homebound due to: [place] fall risk due to instabilty, Muscle weakness , Non-weight bearing Homebound Status Due to the above stated illness, injury or surgical procedure (medical condition or diagnosis) and associated clinical findings, the patient is homebound because of his/her inability to leave home except with aid of a supportive device and/or person AND leaving the home requires a considerable and taxing effort or is medically contraindicated. Pt req the following assistanc: Aid of another person, Wheelchair Home Health Nursing Orders Home Health Services Order: Nursing Services, Physical Therapy-Evaluate & Treat Daily dressing changes to left foot: wash with Normal Saline, pat dry, apply non-adherent dressing, 4 x 4 gauze pads, wrap with Kerlix then cover with KRISTEN wrap. Dr. Costa's office to change dressing to right stump. Home Health Infusion Therapy Line Type: Peripheral IV Site Location: Hand Therapy Orders Therapy Orders: Physical Therapy, PT to assess for OT Therapy Specific Orders: Eval assistive deivces, Teach enviro modifications/ safety, Increase strength/endurance Preprosthetic conditioning Certify Stmt I certify that this patient is under my care and that I, a nurse practitioner or a physician; a operations assistant working with me, had a face to face encounter that - meets the physician face to face encounter requirements with this patient as dated. I personally scribed for ANKUR WALLACE MD (MARIA R) on 11/24/17 at 09:08. Electronically submitted by Melissa Mills ([email or web address]). I personally scribed for ANKUR WALLACE MD (MARIA R) on 11/24/17 at 10:23. Electronically submitted by Blanca Quijano ([email or web address]). ANKUR WALLACE MD Nov 24, 2017 08:59
--- NOTE | 2017-11-24 10:00 | Physical Therapy Daily Note ---
PT Daily Note-Current Subjective Patient in wheelchair pre tx, agrees to PT, states he has 10/10 pain in his right leg. Appearance Patient in wheelchair post tx, he is mod I with wheelchair mobility. Mental Status Patient Orientation: Normal For Age Transfers Functional [place] Measure 0=Not Assessed/NA 4=Minimal Assistance 1=Total Assistance 5=Supervision or Setup 2=Maximal Assistance 6=Modified [place] 3=Moderate Assistance 7=Complete IndependenceIRFPAI Quality Coding Scale 6 Independent with activity with or without an assistive device 5 Patient requires set up or clean up by helper. Patient completes activity by themselves 4 Supervision or touching assist (CGA). [place] provide cues , steadying assist 3 The helper provides less than half the effort to complete the activity 2 The helper provides more than half the effort to complete the activity 1 Dependent. The helper does all the effort to complete an activity 7 Patient refused to complete or attempt activity 9 The patient did not perform the activity before the current illness or injury 88 Not attempted due to Medical conditions or safety concerns Transfers (B, C, W/C) (FIM): 6 Scootin Rollin Supine to/from Sit: 7 Bed to/from Chair: 6 Weight Bearing Right Lower Extremity: Right Non Weight Bearing Left Lower Extremity: Left Weight Bearing/Tolerated LLE WEIGHT BEAR ONLY WITH SURGICAL SHOE ON AND ONLY FOR TRANSFERS Wheelchair Training Does the Pt Use a Wheelchair?: Yes Wheelchair (FIM): 6 Distance: 200'x2 Type of Wheelchair: Manual Exercises Supine Ex: Ankle pumps (left leg), Quad Set, Glut sets, Heel Slides, Short Arc Quads, Straight leg raise, Hip abd/add Supine Reps: 20 prone 5 min hip flexor stretch, sidelying right side hip flex, abd, ext x20 NuStep Minutes: 15 NuStep Workload: 1 (No resistance in order to comply with weight bearing status on left leg.) Treatments bed mobility and transfers, functional strengthening/ROM, wheelchair mobility Assessment Current Status: Fair Progress Patient is at least mod I with all mobility PT Short Term Goals Short Term Goals Time Frame: Nov 20, 2017 Wheelchair (FIM): 6 Wheelchair Distance: 2000' PT Quality Assurance Representative Goals Quality Assurance Representative Goals PT Quality Assurance Representative Goals Time Frame: Dec 04, 2017 Transfers (B,C,W/C) (FIM): 6 Sit to Lying (QC): 6 Lying-Sitting on Side/Bed(QC): 6 Rollin Roll Left to Right (QC): 6 Chair/Cqd-ni-Fkhyv Xfer(QC): 6 Car Transfer (QC): 6 Wheelchair (FIM): 6 Distance: 2000' Wheelchair Level of Assist: 6 Wheel 50 feet with 2 turns (QC: 6 PT Plan Problem List Problem List: Activity Tolerance, Functional Strength, Safety, Balance, Transfer, Bed Mobility, ROM Treatment/Plan Treatment Plan: Continue Plan of Care Treatment Plan: Bed Mobility, Education, Functional Activity Cesar, Functional Strength, Group Therapy, Safety, Therapeutic Exercise, Transfers Treatment Duration: Dec 04, 2017 Frequency: At least 5 of 7 days/Wk (IRF) Estimated Hrs Per Day: 1.5 hours per day Patient and/or Family Agrees t: Yes Safety Risks/Education Patient Education: Transfer Techniques, Reviewed Precautions, Correct Positioning, W/C Management, Safety Issues Teaching Recipient: Patient Teaching Methods: Demonstration, Discussion Response to Teaching: Reinforcement Needed Time/GCodes Time In: 0900 Time Out: 1000 Total Billed Treatment Time: 60 Total Billed Treatment 1 visit FA 15' EX 45' LEX SANTOS PT Nov 24, 2017 10:00
--- NOTE | 2017-11-24 11:16 | Occupational Ther Daily Note ---
OT Current Status-Daily Note Subjective Pt discharging today. Pt agrees to therapy. No c/o pain. Mental Status/Objective Patient Orientation: Person, Place, Time, Situation Functional [place] Measure 0=Not Assessed/NA 4=Minimal Assistance 1=Total Assistance 5=Supervision or Setup 2=Maximal Assistance 6=Modified [place] 3=Moderate Assistance 7=Complete [place] ADL-Treatment Functional [place] Measure 0=Not Assessed/NA 4=Minimal Assistance 1=Total Assistance 5=Supervision or Setup 2=Maximal Assistance 6=Modified [place] 3=Moderate Assistance 7=Complete IndependenceIRFPAI Quality Coding Scale 6 Independent with activity with or without an assistive device 5 Patient requires set up or clean up by helper. Patient completes activity by themselves 4 Supervision or touching assist (CGA). Vader provide cues , steadying assist 3 The helper provides less than half the effort to complete the activity 2 The helper provides more than half the effort to complete the activity 1 Dependent. The helper does all the effort to complete an activity 7 Patient refused to complete or attempt activity 9 The patient did not perform the activity before the current illness or injury 88 Not attempted due to Medical conditions or safety concerns Grooming (FIM): 6 (Completes grooming by self sitting at sink.) Oral Hygiene (QC): 6 Other Treatment Pt complete B UE exercises to increase strength and activity tolerance for daily functional tasks. 15 min arm bike at 50 butler resistance. 4 UE dowel mookie exercises with 6# wt attached 1 set 30 reps each. 2 red theraband exercises for UE 30 reps each. After therapy, pt sitting in w/c maneuvering around ARU. All needs met. OT Short Term Goals Short Term Goals Time Frame: Nov 20, 2017 Grooming(FIM): 6 Toileting(FIM): 6 Toilet/Commode Transfer(FIM): 6 Additional Short Term Goals: 1-Demonstrate ADL Tasks, 2-Verbalize Understanding , 3-ImproveStrength/Cesar 1=Demonstrate adherence to instructed precautions during ADL tasks. 2=Patient will verbalize/demonstrate understanding of assistive devices/ modifications for ADL. 3=Patient will improve strength/tolerance for activity to enable patient to perform ADL's. OT Radiator Cleaner Goals Long-Term Goals Time Frame: Dec 04, 2017 Eating (FIM): 7 (11/23/2017) Eating (QC): 6 (11/23/2017) Groomin (11/23/2017) Oral Hygiene (QC): 6 (11/23/2017) Bathing(FIM): 6 (11/23/2017) Shower/Bathe Self (QC): 6 (11/23/2017) Upper Body Dressing(FIM): 6 (11/23/2017) Upper Body Dressing (QC): 6 (11/23/2017) Lower Body Dressing(FIM): 6 (11/23/2017) Lower Body Dressing (QC): 6 (11/23/2017) On/Off Footwear (QC): 6 (11/23/2017) Toileting(FIM): 6 (11/23/2017) Toileting Hygiene (QC): 6 (11/23/2017) Toilet/Commode Transfer(FIM): 6 (11/23/2017) Toilet/Commode Transfer (QC): 6 (11/23/2017) Shower Transfer(FIM): 6 (11/23/2017) Additional Goals: 1-Demonstrate ADL Tasks, 2-Verbalize Understanding, 3- ImproveStrength/Cesar 1=Demonstrate adherence to instructed precautions during ADL tasks. 2=Patient will verbalize/demonstrate understanding of assistive devices/ modifications for ADL. 3=Patient will improve strength/tolerance for activity to enable patient to perform ADL's. OT Education/Plan Problem List/Assessment Pt would benefit from skilled OT to increase his independence in basic self care to allow him to safely return home Discharge Recommendations Plan/Recommendations: Continue POC Treatment Plan/Plan of Care Patient would benefit from OT for education, treatment and training to promote independence in ADL's, mobility, safety and/or upper extremity function for ADL' s. Plan of Care: ADL Retraining, Functional Mobility, Group Exercise/Act as Ind ( education, exercise, functional activity, activity tolerance, socialization) Treatment Duration: Dec 04, 2017 Frequency: At least 5 of 7 days/Wk (IRF) Estimated Hrs Per Day: 1.5 hours per day Agreement: Yes Rehab Potential: Good Time/GCodes Start Time: 10:30 Stop Time: 11:15 Total Time Billed (hr/min): 45 Billed Treatment Time 1 visit-ADL 1 (10 min) EX 2 (35 min) SOO SCHRADER Nov 24, 2017 11:15
[2017-11-24] MEDS: ENOXAPARIN 40 MG/0.4 ML (LOVENOX) SYR SC SCH (13:07)
--- NOTE | 2017-11-24 15:29 | Therapy Team Discharge Summary ---
Therapy Discharge Summary Discharge Recommendations Date of Discharge Therapy D/C Recommendations: Home w/ Family Support Physical Therapy Patient came to rehab with sepsis/cellulitis right foot/s/p BKA right. Upon evaluation patient performed bed mobility, supine to sit and sliding board transfers with SBA, car transfer with SBA, propeled a manual wheelchair 300' with SBA. No ambulation at this time due to BKA and NWB on the left side. Patient has been performing bed mobility and transfer training, balance and endurance training, functional strengthening, stretching/ROM, wheelchair mobility training, and education. Patient has made good progress and is now independent with bed mobility, mod I with transfers and wheelchair mobility. Patient has met all of his fci goals. Patient is discharging today and will be discharged from PT at this time. Occupational Therapy Decreased Activ Tolerance, Decreased UE Strength, Dependent Transfers, Impaired Funct Balance, Impaired Self-Care Skills PT Car Oiler Goals Skilled Nursing Goals PT Skilled Nursing Goals Time Frame: Dec 04, 2017 Transfers (B,C,W/C) (FIM): 6 Roll Left to Right (QC): 6 Sit to Lying (QC): 6 Lying-Sitting on Side/Bed(QC): 6 Chair/[id number]-Pylqq Xfer(QC): 6 Car Transfer (QC): 6 Wheelchair (FIM): 6 Distance: 2000' Wheelchair Level of Assist: 6 Wheel 50 feet with 2 turns (QC: 6 OT Skilled Nursing Goals Car Oiler Goals Time Frame: Dec 04, 2017 Eating (FIM): 7 (11/23/2017) Eating (QC): 6 (11/23/2017) Oral Hygiene (QC): 6 (11/23/2017) Grooming(FIM): 6 (11/23/2017) Bathing(FIM): 6 (11/23/2017) Shower/Bathe Self (QC): 6 (11/23/2017) Upper Body Dressing(FIM): 6 (11/23/2017) Upper Body Dressing (QC): 6 (11/23/2017) Lower Body Dressing(FIM): 6 (11/23/2017) Lower Body Dressing (QC): 6 (11/23/2017) On/Off Footwear (QC): 6 (11/23/2017) Toileting(FIM): 6 (11/23/2017) Toileting Hygiene (QC): 6 (11/23/2017) Toilet/Commode Transfer(FIM): 6 (11/23/2017) Toilet/Commode Transfer (QC): 6 (11/23/2017) Shower Transfer(FIM): 6 (11/23/2017) Additional Goals: 1-Demonstrate ADL Tasks, 2-Verbalize Understanding, 3- ImproveStrength/Cesar 1=Demonstrate adherence to instructed precautions during ADL tasks. 2=Patient will verbalize/demonstrate understanding of assistive devices/ modifications for ADL. 3=Patient will improve strength/tolerance for activity to enable patient to perform ADL's. LEX SANTOS PT Nov 24, 2017 15:29
[2017-11-24] MEDS: IBUPROFEN 800 MG (MOTRIN) TAB PO PRN (17:53)
[2017-11-24] MEDS ORDERED: GABA-488 PO (18:01)
[2017-11-24 18:30] VITALS: BP 114/70
[2017-11-24 18:35] VITALS: BP 114/70
--- NOTE | 2017-11-26 09:42 | Therapy Team Discharge Summary ---
Therapy Discharge Summary Discharge Recommendations Date of Discharge Nov 24, 2017 at 18:38 Therapy D/C Recommendations: Home w/ Family Support Occupational Therapy Pt was seen for skilled OT to increase his independence in basic self care after R BKA. On admission he was independent with eating, modified independent with grooming (w/c level) and needed either setup or supervision for bathing, dressing and toileting. By discharge he was modified independent with all basic ADLs except independent with eating. Equipment used included w/c, drop arm commode, grab bars, shower bench, hand held shower. No continued OT recommended. DC OT. Decreased Activ Tolerance, Decreased UE Strength, Dependent Transfers, Impaired Funct Balance, Impaired Self-Care Skills PT Jail Goals Remote Computer Terminal Operator Goals PT Remote Computer Terminal Operator Goals Time Frame: Dec 04, 2017 Transfers (B,C,W/C) (FIM): 6 Roll Left to Right (QC): 6 Sit to Lying (QC): 6 Lying-Sitting on Side/Bed(QC): 6 Chair/Nzj-xb-Mhkut Xfer(QC): 6 Car Transfer (QC): 6 Wheelchair (FIM): 6 Distance: 2000' Wheelchair Level of Assist: 6 Wheel 50 feet with 2 turns (QC: 6 OT Remote Computer Terminal Operator Goals Jail Goals Time Frame: Dec 04, 2017 Eating (FIM): 7 (11/23/2017) Eating (QC): 6 (11/23/2017) Oral Hygiene (QC): 6 (11/23/2017) Grooming(FIM): 6 (11/23/2017) Bathing(FIM): 6 (11/23/2017) Shower/Bathe Self (QC): 6 (11/23/2017) Upper Body Dressing(FIM): 6 (11/23/2017) Upper Body Dressing (QC): 6 (11/23/2017) Lower Body Dressing(FIM): 6 (11/23/2017) Lower Body Dressing (QC): 6 (11/23/2017) On/Off Footwear (QC): 6 (11/23/2017) Toileting(FIM): 6 (11/23/2017) Toileting Hygiene (QC): 6 (11/23/2017) Toilet/Commode Transfer(FIM): 6 (11/23/2017) Toilet/Commode Transfer (QC): 6 (11/23/2017) Shower Transfer(FIM): 6 (11/23/2017) Additional Goals: 1-Demonstrate ADL Tasks, 2-Verbalize Understanding, 3- ImproveStrength/Cesar 1=Demonstrate adherence to instructed precautions during ADL tasks. 2=Patient will verbalize/demonstrate understanding of assistive devices/ modifications for ADL. 3=Patient will improve strength/tolerance for activity to enable patient to perform ADL's. REED ODOM OT Nov 26, 2017 09:42
--- NOTE | 2017-12-10 23:29 | DISCHARGE SUMMARY ---
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 The patient had been followed in the wound care clinic as well as by Dr. Price, podiatry. The patient went on to have a below the knee amputation of the right leg [facility] on 11/10/2017 for osteomyelitis of the right foot as well as neuropathic right foot with Charcot foot with Dr. Costa. The patient also had debridement of the fifth left metatarsal head on 10/26/2017 with culture showing Corynebacterium striatum and acinetobacter. The patient completed a course of Zyvox and Bactrim and is currently on Augmentin. The patient is a diabetic and on metformin. He is on Lovenox subq for DVT prophylaxis. He is being followed by [facility] physicians. He had been modified independent prior to this. Currently, he requires assistance, has limited endurance, some phantom limb pain and residual limb pain. He was referred to inpatient rehabilitation unit. PAST MEDICAL HISTORY: Type 2 diabetes mellitus, obesity, diabetic peripheral neuropathy postop anemia with hemoglobin 10.5 on 11/11/2017. He is single and lives in [place], [place], but has a significant other living with him. 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 MEDICAL COURSE: The patient was continued on his medications. Accu-Checks were monitored. The patient did see Dr. Costa in follow up for postop wound care while on unit. CBC on 11/15/2017 showed WBC 6.6, H and H 12.3/37, platelet count 354K. Glucometer readings from 11/22/2017 to 11/24/2017 varied between 91 and 224. He was afebrile during his stay. Pulse was 80 to 173, respirations 18, blood pressure 114/70, O2 sat 96% on room air. REHABILITATION COURSE: He progressed well therapies, had increased strength and endurance. He was assessed by speech therapy upon admission and found to be cognitively intact. They signed off. PT notes upon admission, he was independent with eating, modified independent with grooming at the wheelchair level and needed either set up or supervision for bathing, dressing and toileting. By discharge, he was modified independent with all basic ADLs except independent with eating. PT notes upon admission, he performed bed mobility with standby assist, transfers with standby assist, propel a manual wheelchair 300 feet with standby assist. No ambulation at this time due to BKA, nonweightbearing on the left side except for toe touch transfers except for touchdown weightbearing for transfers. The patient has made good progress and upon discharge was independent for bed mobility, modified independent with transfers and wheelchair mobility. DISCHARGE INSTRUCTIONS: A prescription for DME, a standard wheelchair was provided. The patient will have followup with [facility] physician and Dr. Santillan orthopedics and podiatry respectively. Continue current diet. DISCHARGE MEDICATIONS: Gabapentin 300 mg p.o. b.i.d., vitamin C 500 mg p.o. daily, ASA 325 mg p.o. daily, Lipitor 40 mg p.o. daily, calcium with vitamin D one tablet p.o. daily, hydrocodone/APAP 10/325 one tablet p.o. q.4 hours p.r.n. moderate pain, Mag-Ox 400 mg p.o. daily, metformin 500 mg p.o. b.i.d. with meals, multivitamins with minerals one tablet p.o. daily, potassium 99 mg p.o. daily, Senokot-S 1 tablet p.o. b.i.d. DISCHARGE DIAGNOSES: 1. Rehabilitation and below the knee amputation right leg due to complications of type 2 diabetes mellitus and acute osteomyelitis of the right foot. 2. Type 2 diabetes mellitus with diabetic peripheral neuropathy. 3. Diabetes mellitus type 2 with foot ulcer. 4. Chronic ulcer left mid foot. 5. Postop anemia. 6. Postop constipation. 7. Phantom limb pain, right. 8. BMI 31 to 31.9. 9. Obesity. CONDITION AT DISCHARGE: Improved and stable. PROGNOSIS: Rehab prognosis appears good for some continued improvement. Hopefully, his left foot will heal well and he may be a prosthetic candidate for right BKA in the near future. The patient will follow up with Dr. Costa and Jarrell regarding this. Job ID: [id number] DocumentID: [id number] Dictated Date: 12/10/2017 09:55:50 Finished Metal Repairer Date: 12/10/2017 23:28:25 Dictated By: ANKUR WALLACE MD
== END 2017-11-24 18:38 | disposition home health service (06) | DRG 560 ==
LOC: EDPENDDISDT 11-24 12:00
PROVIDERS: ADMIT Physical Medicine & Rehabilitation; ATTEND Physical Medicine & Rehabilitation
DX: Z47.81 Encounter for orthopedic aftercare following surgical amputation (principal); Z89.511 Acquired absence of right leg below knee; G54.6 Phantom limb syndrome with pain; E11.42 Type 2 diabetes mellitus with diabetic polyneuropathy; E11.621 Type 2 diabetes mellitus with foot ulcer; L97.429 Non-pressure chronic ulcer of left heel and midfoot with unspecified severity; K59.00 Constipation, unspecified; D64.9 Anemia, unspecified; Z68.31 Body mass index [BMI] 31.0-31.9, adult
CPT/HCPCS: 36415; 71046; 82962; 85025

== ENCOUNTER 2018-05-21 13:45 | Outpatient (RCR) | payer BC ==
[~2018-05-21 13:45] MED LIST changes: +METF-397 PO; -METF500T5 PO
== END 2018-05-21 15:30 | disposition home or self-care (01) ==
PROVIDERS: ATTEND Podiatrist
DX: Z47.81 Encounter for orthopedic aftercare following surgical amputation (principal); Z89.512 Acquired absence of left leg below knee

== ENCOUNTER 2023-04-08 06:15 | Outpatient (CLI) | payer MEDICARE, MEDICAID ==
[~2023-04-08] VITALS: Ht 200.7 cm; Wt 116.9 kg
[~2023-04-08 06:15] MED LIST changes: +ACHYD1T PO; +ASCO500T17 PO; -ASCO500T6 PO; +DOXY-444 PO; -DOXY100C42 PO; -FLUC200T5 PO; +FLUC200T9 PO; -HYDR-3820 PO; +MULT-1054 PO; +MULT-567 PO; -MULT-985 PO; -MULT1TAB69 PO; -POTA99TA21 PO; +POTA99TA26 PO
[2023-04-08] MEDS ORDERED: CYAN-23 PO (14:53)
[2023-04-08] MEDS ORDERED: CALC1CAP39 PO (14:53)
[2023-04-08] MEDS ORDERED: GLIM2TAB4 PO (14:53)
[2023-04-08] MEDS ORDERED: VITA100033 PO (14:53)
[2023-04-08] MEDS ORDERED: TIRZ7.5P SQ (14:53)
[2023-04-08] MEDS ORDERED: CHOL1CAP11 PO (14:53)
[2023-04-08] MEDS ORDERED: METF-397 PO (14:53)
== END 2023-04-08 15:03 | disposition home or self-care (01) ==
LOC: PREOP 06:15
PROVIDERS: ATTEND Surgery
DX: Z01.818 Encounter for other preprocedural examination (principal)

== ENCOUNTER 2023-04-21 09:18 | Day surgery (SDC) | payer MEDICARE, MEDICAID ==
[~2023-04-21] VITALS: Ht 200.7 cm; Wt 116.9 kg
[~2023-04-21 09:18] MED LIST changes: +CALC1CAP39 PO; +CHOL1CAP11 PO; +CYAN-23 PO; +GLIM2TAB4 PO; +TIRZ7.5P SQ; +VITA100033 PO
[2023-04-21] MEDS ORDERED: LACTATED RINGERS 1,000 ML 1,000 ML IV STA (09:23)
[2023-04-21 09:45] VITALS: BP 127/96
--- NOTE | 2023-04-21 09:58 | Progress Note-Pre Operative ---
Pre-Operative Progress Note Date of Available H&P: Apr 21, 2023 Date H&P Reviewed: Apr 21, 2023 Time H&P Reviewed: 10:00 History & Physical: H&P Reviewed, Patient Examed, No changes noted Pre-Operative Diagnosis: screening colonoscopy JIMBO BRANHAM DO Apr 21, 2023 09:58
--- NOTE | 2023-04-21 10:51 | Progress Note-Post Operative ---
Post-Operative Progess Note Surgeon (s)/Client Sales And Service Officer (s) Surgeon JIMBO BRANHAM DO Client Sales And Service Officer: n/a Pre-Operative Diagnosis screening colonoscopy Post-Operative Diagnosis descending colon polyp, sigmoid colon polyp Procedure & Operative Findings Date of Procedure 04/21/23 Procedure Performed/Findings colonoscopy with hot biopsy polypectomy x2 Anesthesia Type per WOUND CARE RN Estimated Blood Loss Estimated blood loss (mL): none Specimens/Packing Specimens Removed descending colon polyp x1, sigmoid colon polyp x1 JIMBO BRANHAM DO Apr 21, 2023 10:51
--- NOTE | 2023-04-21 10:52 | Discharge Inst-Simple/Standard ---
Discharge Inst-Standard Patient Instructions/Follow Up Plan of Care/Instructions/FU: ricky 2 weeks Activity as Tolerated: Yes Discharge Diet: Regular Diet JIMBO BRANHAM DO Apr 21, 2023 10:52
[2023-04-21 10:55] VITALS: BP 104/73
[2023-04-21 11:00] VITALS: BP 97/62
[2023-04-21 11:05] VITALS: BP 101/66
[2023-04-21 12:04] VITALS: BP 97/62
--- NOTE | 2023-04-21 13:27 | Anesthesia-General Post-Op ---
MAC Patient Condition Mental Status/LOC: Same as Preop Cardiovascular: Satisfactory Nausea/Vomiting: Absent Respiratory: Satisfactory Pain: Controlled Complications: Absent Post Op Complications Complications None Follow Up Care/Instructions Patient Instructions None needed. Anesthesiology Discharge Order Discharge Order Patient is doing well, no complaints, stable vital signs, no apparent adverse anesthesia problems. No complications reported per nursing. ARSENIO OLVERA CRNA Apr 21, 2023 13:27
--- NOTE | 2023-04-21 16:02 | OPERATIVE REPORT ---
DATE OF SERVICE: 04/21/2023 PREOPERATIVE DIAGNOSIS: Screening colonoscopy. POSTOPERATIVE DIAGNOSIS: Colon polyps x2. PROCEDURE: Colonoscopy with hot biopsy polypectomy x2. SURGEON: Jimbo Bruner DO ANESTHESIA: Per BASEBOARD HEATING INSTALLER. ESTIMATED BLOOD LOSS: None. COMPLICATIONS: None. INDICATIONS: The patient is a 58-year-old male with needing screening colonoscopy. He understands risks and benefits of procedure and wished to proceed. Consent was signed in chart. DESCRIPTION OF PROCEDURE: The patient was taken to endoscopy suite, placed in the left lateral recumbent position. Timeout was performed. Digital rectal exam was performed. No palpable polyps, masses or ulcerations. Scope was inserted in the rectum and advanced all the way to the cecum with minimal difficulty. Prep was adequate. Scope was slowly retracted back. No polyps, masses or ulcerations in the cecum, ascending, transverse colon. In the descending colon, polyp was present, which hot biopsy polypectomy was performed. Scope was then continuously retracted back into the sigmoid colon, another small polyp was present, which hot biopsy polypectomy was performed. Scope was then continuously retracted back. No polyps, masses or ulcerations in remainder of the sigmoid and rectum. The scope was retroflexed noting some hemorrhoids. No other pathology. Scope was returned to its normal position, slowly withdrawn until completely removed. The patient tolerated the procedure well without any complications, taken to recovery room in stable condition. RECOMMENDATIONS: The patient will need repeat colonoscopy in 5 years. He will follow up on pathology in 2 weeks. Any issues before that, be seen at that time. Job ID: [id number] DocumentID: [id number] Dictated Date: 04/21/2023 10:58:28 Weapons Electrical Engineering Officer Date: 04/21/2023 16:00:00 Dictated By: JIMBO BRUNER DO
== END 2023-04-21 12:04 | disposition home or self-care (01) ==
LOC: ENDO 09:18
PROVIDERS: ATTEND Surgery
DX: Z12.11 Encounter for screening for malignant neoplasm of colon (principal); D12.4 Benign neoplasm of descending colon; K63.5 Polyp of colon; K64.9 Unspecified hemorrhoids; E11.9 Type 2 diabetes mellitus without complications; Z79.84 Long term (current) use of oral hypoglycemic drugs; Z87.891 Personal history of nicotine dependence; Z89.511 Acquired absence of right leg below knee; Z79.85 Long-term (current) use of injectable non-insulin antidiabetic drugs; E66.9 Obesity, unspecified; Z68.29 Body mass index [BMI] 29.0-29.9, adult
CPT/HCPCS: 45384; 82947; G0416; 88305